=== PATIENT | male | born 1950 | race Caucasian/White ===

== ENCOUNTER 2019-10-23 13:09 | Inpatient (IN) ==
--- OUTSIDE RECORDS SUMMARY | 2019-10-23 13:11 | External Medical Summary | Continuity of Care Document ---
:1950 Author Name Jessica Frausto, Provider Address Unavailable Unavailable , Care Team Providers Name Role Phone Unavailable Unavailable Unavailable PCP, UNKNOWN Unavailable Unavailable Problems Active medical history not documented Allergies and Adverse Reactions No Known Drug Allergies (Allergy) Medications Medications not documented Procedures Procedures not documented Immunizations Immunizations not documented Plan of Treatment Planned Observations Planned Goals not documented Results No Known Results Results not documented
[2019-10-23 14:25] LABS: Albumin Level 3.2 gm/dl (3.4-5.0); Calcium 8.6 mg/dl (8.5-10.1); Creatinine Clr Calc Pharmacy 93.5 ml/min; Est GFR (African American) 97.9; Est GFR (Non-African American) 84.5; Potassium 3.9 mmol/L (3.5-5.1)
[2019-10-23 14:28] LABS: Albumin Globulin Ratio 1.5 (0.9-2); Bilirubin,Total 1.3 mg/dl (0.2-1); Globulin 2.2 gm/dl (2.5-4.0); Total Protein 5.4 gm/dl (6.4-8.2)
[2019-10-23 14:29] LABS: INR 1.2 (0.9-1.1); Partial Thromboplastin Time 26.4 Seconds (21.0-31.0); Prothrombin Time 11.8 Seconds (9.0-12.0)
[2019-10-23 14:35] LABS: Mean Corpuscular Hgb Conc 34.7 g/dL (32-36); Platelet Count 5 K/uL (130-400)
[2019-10-23 14:36] LABS: Basophils # (auto) 0.01 K/uL (0-0.2); Basophils % (auto) 0.3 %; Eosinophils # (auto) 0.08 K/uL (0-0.5); Eosinophils % (auto) 2.3 %; Hematocrit (blood only) 29.1 % (42-52); Hemoglobin 10.1 g/dL (14.0-18.0); Immature Granulocytes # (auto) 0.01 K/uL (0.00-0.02); Immature Granulocytes % (auto) 0.3 %; Lymphocytes # (auto) 0.41 K/uL (1.2-3.4); Lymphocytes % (auto) 11.5 %; Mean Corpuscular Hemoglobin 32.7 pg (25-34); Mean Corpuscular Volume 94.2 fL (80-100); Monocytes # (auto) 0.25 K/uL (0.11-0.59); Neutrophils # (auto) 2.79 K/uL (1.4-6.5); Neutrophils % (auto) 78.6 %; Ovalocytes 1+; Platelet Estimate SIGNIFIC DECREASED (Normal); RDW Coefficient of Variation 16.3 % (11.5-14.5); RDW Standard Deviation 55.8 fL (36.4-46.3); Red Blood Count 3.09 M/uL (4.7-6.1); Tear Drop Cells 2+; White Blood Count 3.55 K/uL (4.8-10.8)
--- NOTE | 2019-10-23 14:52 | XRay Report ---
XR chest 1V portable CLINICAL HISTORY: 69 years-old Male presenting with abd pain. TECHNIQUE: Portable upright AP view of the chest was obtained. COMPARISON: 07/24/2018. FINDINGS: Atherosclerosis of the aortic arch. Cardiac silhouette enlarged. Pulmonary vascular and interstitial prominence. Reticulonodular opacities with the mid to basilar predominance. These are unchanged from prior. No new focal opacity. No large effusion or pneumothorax. Degenerative changes of the thoracic spine. IMPRESSION: 1. Chronic reticulonodular infiltrates. This suggests an underlying chronic lung disease. 2. Cardiomegaly with mild volume overload and congestive change. No nimo pulmonary edema. ACT 112: Negative or not required by law. Electronically signed by: Steve Robison M.D. 10/23/2019 2:51 PM
[2019-10-23 14:57] LABS: Bilirubin Direct 0.3 mg/dl (0-0.2); Troponin I < 0.015 ng/ml (0-0.045)
[2019-10-23] MEDS ORDERED: FAMOTIDINE 20MG IV PUSH 20 MG/5 ML SYR IV STA (15:04)
[2019-10-23] MEDS ORDERED: IOVERSOL 100ml IV PRN (15:09)
[2019-10-23] MEDS ORDERED: PANTOprazole 80 MG in DEXTROSE 5% 100 ML IV ONE (15:15)
[2019-10-23] MEDS: SODIUM CHLORIDE 0.9% 500 ML IV SCH (15:22)
--- NOTE | 2019-10-23 15:52 | CT Scan Report ---
ABDOMEN AND PELVIS CT WITH IV CONTRAST CT DOSE: 1422.48 mGy.cm HISTORY: Generalized abdominal pain. TECHNIQUE: Multiaxial CT images of the abdomen and pelvis were performed following the use of intrave nous contrast. A dose lowering technique was utilized adhering to the principles of ALARA. COMPARISON STUDY: Abdomen and pelvis CT 01/29/2016. FINDINGS: Interval development of multiple subcentimeter pulmonary nodules seen within the lung bases . The largest within the base of the right lower lobe measures 8 mm on image 68. There is diffuse int erstitial thickening at the lung bases. This has progressed and could represent chronic interstitial change versus acute interstitial abnormality such as pulmonary edema. No pneumoperitoneum. No pneumat osis. No suspicious lytic or blastic osseous lesions. Nodular contour to the liver consistent with ci rrhosis. No hepatic or splenic masses identified. The gallbladder surgically absent. The main portal vein is patent. The spleen is severely enlarged measuring up to 22 cm in length. This is slightly dec reased in size. Moderate ascites with multiple upper abdominal varicosities as well as distal paraeso phageal and rectal varicosities. This is consistent with portal hypertension secondary to the cirrhos is. Mildly enlarged right retrocrural lymph nodes remain stable. The adrenal glands, kidneys, and willis creas are within normal limits. Prominent retroperitoneal lymph nodes are also stable. Stable single enlarged portacaval lymph node. Normal caliber abdominal aorta. The bladder is unremarkable. Small to moderate fluid-filled right inguinal hernia. Low-density bilateral inguinal lymph nodes are noted. D ominant lymph node on the left measures 1.8 x 1.1 cm. This has increased in size in the interval. Nod ularity posterior to the spleen may represent the multiple varicosities. No evidence for bowel obstru ction. Colonic diverticulosis. Difficult evaluation for bowel wall thickening due to the abdominal va ricosities and ascites. Normal appendix. Questionable thickening and inflammatory change at the proxi mal sigmoid colon best seen on images 332 through 353. This could be due to to a developing diverticu litis or possibly secondary to the adjacent pericolonic varicosities and ascites. Multiple borderline enlarged mesenteric lymph nodes remain unchanged. Increase in size in a 3 cm periportal lymph node s een on image 134. IMPRESSION: 1. Interval development of multiple subcentimeter indeterminate pulmonary nodules within the lung bas es. Metastatic disease would be the diagnosis of exclusion. 2. Mild interstitial thickening at the lung base which has progressed. This favors pulmonary vascular congestion. 3. Cirrhotic liver with splenomegaly. The paraesophageal, upper abdominal, and perirectal varicositie s have progressed. Moderate ascites which is also progressed. 4. Questionable thickening of inflammatory change at the proximal sigmoid colon. This could be due to a developing diverticulitis or possibly secondary to the adjacent pericolonic varicosities of ascite s. 5. Mildly enlarged periportal and left inguinal lymph nodes. These are nonspecific.. 6. Additional findings as described above. ACT 112: Negative or not required by law. Electronically signed by: Ted Kincaid M.D. 10/23/2019 3:51 PM
[2019-10-23] MEDS: PANTOprazole 40 MG in DEXTROSE 5% 100 ML IV SCH ×2 (16:22→22:08)
[2019-10-23] MEDS ORDERED: cefTRIAXone SODIUM 2,000 MG/70 ML BAG IV STA (19:02)
[2019-10-23 19:49] LABS: Hematocrit (blood only) 26.5 % (42-52); Hemoglobin 9.2 g/dL (14.0-18.0); Mean Corpuscular Hemoglobin 32.6 pg (25-34); Mean Corpuscular Hgb Conc 34.7 g/dL (32-36); Platelet Count 9 K/uL (130-400); RDW Coefficient of Variation 16.2 % (11.5-14.5); RDW Standard Deviation 55.9 fL (36.4-46.3); Red Blood Count 2.82 M/uL (4.7-6.1)
[2019-10-23 19:50] LABS: Basophils # (auto) 0.01 K/uL (0-0.2); Basophils % (auto) 0.3 %; Eosinophils # (auto) 0.07 K/uL (0-0.5); Eosinophils % (auto) 2.1 %; Immature Granulocytes # (auto) 0.01 K/uL (0.00-0.02); Immature Granulocytes % (auto) 0.3 %; Lymphocytes # (auto) 0.34 K/uL (1.2-3.4); Monocytes # (auto) 0.32 K/uL (0.11-0.59); Monocytes % (auto) 9.4 %; Neutrophils # (auto) 2.65 K/uL (1.4-6.5); Neutrophils % (auto) 77.9 %; Platelet Estimate SIGNIFIC DECREASED (Normal); Poikilocytosis Present
[2019-10-23] MEDS ORDERED: ONDANSETRON INJ 2 MG/ML 2 ML VIAL IV PRN (21:44)
[2019-10-23] MEDS ORDERED: NITROGLYCERIN SL 0.4 MG/TAB TAB SL PRN (21:44)
[2019-10-23] MEDS ORDERED: SODIUM CHLORIDE 0.9% 1000ML 1,000 ML IV SCH (22:00)
[2019-10-23] MEDS: carvediloL 6.25 MG TAB PO SCH (22:09)
--- NOTE | 2019-10-23 22:24 | Electrocardiogram Report ---
Test Reason : Blood Pressure : / mmHG Vent. Rate : 075 BPM Atrial Rate : 075 BPM P-R Int : 156 ms QRS Dur : 102 ms QT Int : 420 ms P-R-T Axes : 037 -01 008 degrees QTc Int : 469 ms Normal sinus rhythm Low voltage QRS Incomplete right bundle branch block Cannot rule out Anterior infarct , age undetermined Abnormal ECG When compared with ECG of 24-JUL-2018 17:19, No significant change was found Confirmed by Nitesh South ([id number]) on 10/23/2019 10:23:56 PM Referred By: Confirmed By:Nitesh South
--- NOTE | 2019-10-23 23:56 | History and Physical Report ---
DATE OF ADMISSION: 10/23/2019 CHIEF COMPLAINT: Pancytopenia, GI bleed. HISTORY OF PRESENT ILLNESS: This is a 69-year-old male with past medical history significant for pulmonary embolism, no longer on anticoagulation, history of allergic rhinitis, history of liver cirrhosis diagnosed about 4 years ago, history of esophageal varices, as per patient recent EGD was okay and follows with GI, history of pancreatitis, cholecystitis status post laparoscopic cholecystectomy, history of hypertension, history of autoimmune hemolytic anemia, Kenna positive initial diagnosis in 2010, cirrhosis of liver and splenomegaly causing thrombocytopenia, the platelet count is usually around 70,000-100,000 as per hematology/oncology notes, received prednisone therapy on several occasions, Rituxan x4 in 2010, and Rituxan x8 completed in 2015 as per hematology/oncology notes and observation since April 2016. The patient states since last 2 weeks ago, he developed distention of abdomen and lower extremity edema. Otherwise he is doing fine and went to work yesterday. He had epistaxis couple of days ago and has also noticed some black stools, so he went to his hematology/oncology office today and outpatient labs were done which showed platelets less than 10,000 and advised to come to the ER. Here in the ER, platelets were only 5,000 and WBC 3.4, initial hemoglobin was 10.[address] of abdomen and pelvis was done which is showing multiple subcentimeter indeterminate pulmonary nodules in the lung bases, metastatic disease could be diagnosis of exclusion and pulmonary vascular congestion, cirrhotic liver with splenomegaly, paraesophageal upper abdominal and perirectal varicosities have been progressed, moderate ascites which has also progressed, inflammatory change in the proximal sigmoid colon could be developing diverticulitis or possibly secondary to adjacent pericolonic varicosities of ascites, mildly enlarged periportal and left inguinal lymph nodes. As because of his varices and GI bleed and low platelets, initial plan was to transfer to tertiary care. ER called [facility], they accepted transfer, but they do not have any beds available tonight so he will be admitted tonight and transfer to [facility] tomorrow and also a unit of platelets was given in the ER and [place] also advised to give Rocephin for SBP , which the patient received and the patient was started on Protonix drip. He is hemodynamically stable. The patient has complaints of mild discomfort in left upper quadrant abdomen on and off. Currently the pain is okay. Currently no epistaxis. Denies any headache, no blurred visions, no sore throat. Appetite is good. No dysphagia, no headache, no dizziness, no chest pain or shortness of breath. No nausea, no vomiting. No hematuria. He is ambulating okay. He ambulated to the bathroom in the ER without any support. Lives with . Currently resting comfortably and hemodynamically stable. ALLERGIES: No known drug allergies. PAST MEDICAL HISTORY: As mentioned above. PAST SURGICAL HISTORY: Bronchoscopy, left groin lymph node biopsy at age of 14, colonoscopies, EGDs, insertion of lens, left sided cataract, laparoscopic cholecystectomy, revision of Mohs repair right eye, bilateral cataract surgery, tonsillectomy, adenoidectomy, repair of umbilical hernia with mesh in 2012. MEDICATIONS: The patient is on Coreg 6.25 mg p.o. b.i.d., omeprazole 20 mg p.o. a.m., spironolactone 25 mg p.o. a.m. FAMILY HISTORY: Significant for father had brain aneurysm, colon cancer, heart disorder. SOCIAL HISTORY: . No smoking, no alcohol, no drug use. REVIEW OF SYMPTOMS: As per HPI. Rest of review of symptoms negative. PHYSICAL EXAMINATION: GENERAL: The patient is of moderate build, not in acute distress. VITAL SIGNS: Temperature 37, pulse 91, respiratory rate 20s, blood pressure 111/65, oxygen 94% room air. HEENT: No pallor, no icterus. Pupils equal, round, reactive to light. NECK: No JVD, no neck masses, no carotid bruit. CARDIOVASCULAR: S1, S2 heard, regular rate and rhythm, no murmur, no gallop. RESPIRATORY SYSTEM: Normal AP diameter. No accessory muscle use. No wheezing, no crackles. ABDOMEN: Distended. Bowel sounds sluggish. Nontender. No guarding, no rigidity. CENTRAL NERVOUS SYSTEM: Alert and oriented x3. Insight good. Obeys commands. Moves extremities. EXTREMITIES: Bilateral lower extremity +2 edema present with petechial rash seen. LABORATORY DATA: WBC 3.4, hemoglobin 9.2, hematocrit 26.5, platelets initially was 5, now 9. PT 11.8, INR 1.2, APTT 26.4. Sodium 141, potassium 3.9, chloride 110, bicarbonate 25, BUN 16, creatinine 0.9, serum glucose 168, calcium 8.6, total bilirubin 1.3, direct bilirubin 0.3, AST 21, ALT 20, alkaline phosphatase 68, troponin I less than 0.015. Chest x-ray, chronic reticulonodular infiltrates to suggest underlying chronic lung disease, cardiomegaly with mild volume overload and congestive change, no nimo pulmonary edema. CT of abdomen and pelvis shows interval development of multiple subcentimeter indeterminate pulmonary nodules within the lung bases, metastatic disease with a diagnosis of exclusion, mild interstitial thickening at the lung base, which has progressed, this favors pulmonary vascular congestion, cirrhotic liver with splenomegaly. The paraesophageal upper abdominal and perirectal varicosities are progressed, moderate ascites, which has also progressed, questionable thickening of inflammatory change in the proximal sigmoid colon. This could be due to developing diverticulitis or possibly secondary to the adjacent pericolonic varicosities of ascites, mildly enlarged periportal and left inguinal lymph nodes, these are nonspecific. EKG: Normal sinus rhythm at a rate of 75, incomplete right bundle branch block, no significant changes found. ASSESSMENT AND PLAN: This is a 69-year-old male with history of autoimmune hemolytic anemia, liver cirrhosis, hypertension, presents with pancytopenia with platelets of 5 and gastrointestinal bleed and there is plan to transfer to [place], but no bed available until tomorrow so getting admitted to observe until patient gets transferred to [place]. 1. Pancytopenia with significant thrombocytopenia, platelets of 5, hemoglobin when he came 10.2. Received 1 unit of platelet apheresis, fluids. Currently platelet came up to 9, he is going to get another unit of platelet apheresis. Monitor in tele floor.There was plan for high dose Decadron but currently held for GI bleed. Can d/w heme/onco again if Patient stays here for long time. 2. Gastrointestinal bleed, having black stools for few days. Started on Protonix drip, which we will continue. The patient has history of liver cirrhosis and varices which have increased on CAT scan . Plan to transfer to [place] for further management. Continue Protonix drip for now. Follow h and h. 3. Autoimmune hemolytic anemia, Kenna positive, diagnosed in 2010 . Received several course of prednisone and also Rituxan, follows with hematology/oncology, further management with hematology/oncology at [place]. 4. Liver cirrhosis with ascites, diagnosed about 4 years ago, on Aldactone, has the moderate ascites on CAT scan, may need tap, started on Rocephin for possible SBP.. 4. Hypertension, currently on Coreg with holding parameters. 5. Deep venous thrombosis prophylaxis, sequential compression devices for now. 6. Disposition: Closely monitor in tele floor. Await transfer to [place], when bed is available possibly in a.m. Level 1 full code. MTDD
--- NOTE | 2019-10-24 01:52 | Emergency Department Note ---
Entered by Sandi Meza acting as a scribe for Dennis Lozano MD History of Present Illness General Chief complaint: Referred by Doctor Stated complaint: Referred by Doctor Time Seen by Provider: 10/23/19 14:10 Source: patient Mode of arrival: ambulatory Limitations: no limitations History of Present Illness Onset (ago): day(s) 1 Radiation: non-radiation Pain Consistency: + constant Relieved By: + none Exacerbated By: + none Associated symptoms: + chest pain and + other (+hematochezia, +swelling in bilateral legs); no cough, no fever/chills and no shortness of breath Treatments prior to arrival: none The patient is a 69 year old male who presents to the ED with complaints of abnormal lab work. He was referred here by Dr. Ibrahim from [facility] for low p latelets after labs that were drawn this morning came back abnormal. The patient has a history of hemolytic anemia and his platelets were under 10,000 this morning. He admits to some recent black stools and occasional chest pain for the past 1 week. He denies any shortness of breath. He denies any history of gastric ulcers. He has a history of fatty liver but denies any history of alcohol abuse. The patient has been transfused previously. He denies any recent fevers, chills, cough or congestion. He does admit to some swelling in his legs. He does have 2 hernias in his abdomen that are occasionally painful. Home Medications Home Medications Medication Instructions Recorded Confirmed Type carvedilol 6.25 mg PO BID 07/24/18 10/23/19 History omeprazole 20 mg PO QAM 07/24/18 10/23/19 History spironolactone 25 mg PO QAM 10/23/19 10/23/19 History Allergies Allergy/AdvReac Type Severity Reaction Status Date / Time No Known Allergies Allergy Verified 10/23/19 15:13 Past Med/Surg History Medical History Basal cell carcinoma Hemolytic anemia Pancreatitis Portal hypertension Social History Preferred Language: Gabonese Communication Ability: Effective Channel Account Manager Required: No Beliefs That Will Affect Care: None Current Living Situation: Spouse Other Information That Helps Us Care for You: No Feels Safe at Home: Yes Safety Concerns: Feels Safe At This Time Smoking Status: Never smoker Hx Alcohol Use: No Hx Substance Use: No Review of Systems See HPI for pertinent positives & negatives. and A total of 10 systems reviewed and were otherwise negative Physical Exam Vital Signs Vital Signs - 24 hr 10/23/19 13:13 10/23/19 13:55 10/23/19 14:00 Temperature 36.6 C Temperature Source Oral Pulse Rate 81 75 73 Pulse Rate from SpO2 Sensor 76 73 Respiratory Rate 18 17 18 Respiratory Effort / Characteristics Non-Labored Spontaneous Respiratory Depth Normal Blood Pressure 127/67 120/69 126/65 Blood Pressure Mean 87 84 89 Blood Pressure Position Sitting Pulse Oximetry 97 97 96 Oxygen Delivery Method Room Air Sepsis Recent Fever Within 48 Hours No Sepsis Action Taken by Nursing No Action Required 10/23/19 14:01 10/23/19 14:30 10/23/19 14:31 Temperature Temperature Source Pulse Rate 76 79 78 Pulse Rate from SpO2 Sensor 75 79 79 Respiratory Rate 19 20 22 Respiratory Effort / Characteristics Respiratory Depth Blood Pressure 152/68 H Blood Pressure Mean 98 Blood Pressure Position Pulse Oximetry 95 98 98 Oxygen Delivery Method Sepsis Recent Fever Within 48 Hours Sepsis Action Taken by Nursing 10/23/19 15:00 10/23/19 15:01 10/23/19 15:20 Temperature Temperature Source Pulse Rate 75 76 82 Pulse Rate from SpO2 Sensor 75 76 82 Respiratory Rate 19 20 19 Respiratory Effort / Characteristics Respiratory Depth Blood Pressure 115/61 127/63 Blood Pressure Mean 70 78 Blood Pressure Position Pulse Oximetry 96 96 99 Oxygen Delivery Method Sepsis Recent Fever Within 48 Hours Sepsis Action Taken by Nursing 10/23/19 15:30 10/23/19 16:22 10/23/19 16:30 Temperature Temperature Source Pulse Rate 75 74 75 Pulse Rate from SpO2 Sensor 76 74 75 Respiratory Rate 20 18 17 Respiratory Effort / Characteristics Respiratory Depth Blood Pressure 120/62 113/65 116/67 Blood Pressure Mean 65 69 79 Blood Pressure Position Pulse Oximetry 98 98 97 Oxygen Delivery Method Sepsis Recent Fever Within 48 Hours Sepsis Action Taken by Nursing 10/23/19 16:38 10/23/19 16:39 10/23/19 16:54 Temperature 36.9 C 37 C Temperature Source Oral Oral Pulse Rate 76 74 78 Pulse Rate from SpO2 Sensor 75 Respiratory Rate 20 17 20 Respiratory Effort / Characteristics Respiratory Depth Blood Pressure 121/64 121/64 120/68 Blood Pressure Mean 83 73 85 Blood Pressure Position Lying Pulse Oximetry 97 97 97 Oxygen Delivery Method Sepsis Recent Fever Within 48 Hours Sepsis Action Taken by Nursing 10/23/19 16:55 10/23/19 17:00 10/23/19 17:01 Temperature Temperature Source Pulse Rate 78 75 76 Pulse Rate from SpO2 Sensor 79 75 76 Respiratory Rate 21 18 13 Respiratory Effort / Characteristics Respiratory Depth Blood Pressure 120/68 116/62 Blood Pressure Mean 81 80 Blood Pressure Position Pulse Oximetry 97 96 99 Oxygen Delivery Method Sepsis Recent Fever Within 48 Hours Sepsis Action Taken by Nursing 10/23/19 17:05 10/23/19 17:06 10/23/19 17:15 Temperature 37 C 37.1 C Temperature Source Oral Oral Pulse Rate 73 73 89 Pulse Rate from SpO2 Sensor 74 86 Respiratory Rate 15 16 21 Respiratory Effort / Characteristics Respiratory Depth Blood Pressure 123/68 123/68 139/78 Blood Pressure Mean 86 93 97 Blood Pressure Position Pulse Oximetry 97 97 96 Oxygen Delivery Method Sepsis Recent Fever Within 48 Hours Sepsis Action Taken by Nursing 10/23/19 17:30 10/23/19 17:39 10/23/19 17:45 Temperature 37 C Temperature Source Oral Pulse Rate 77 86 76 Pulse Rate from SpO2 Sensor 76 76 Respiratory Rate 20 23 26 H Respiratory Effort / Characteristics Respiratory Depth Blood Pressure 112/60 114/64 114/64 Blood Pressure Mean 74 80 71 Blood Pressure Position Pulse Oximetry 97 97 97 Oxygen Delivery Method Sepsis Recent Fever Within 48 Hours Sepsis Action Taken by Nursing 10/23/19 18:00 10/23/19 18:15 10/23/19 18:30 Temperature Temperature Source Pulse Rate 78 89 81 Pulse Rate from SpO2 Sensor Respiratory Rate 20 21 20 Respiratory Effort / Characteristics Respiratory Depth Blood Pressure 130/73 131/85 120/63 Blood Pressure Mean 94 99 67 Blood Pressure Position Pulse Oximetry Oxygen Delivery Method Sepsis Recent Fever Within 48 Hours Sepsis Action Taken by Nursing 10/23/19 18:45 10/23/19 19:00 Temperature Temperature Source Pulse Rate 83 91 H Pulse Rate from SpO2 Sensor 86 Respiratory Rate 20 26 H Respiratory Effort / Characteristics Respiratory Depth Blood Pressure 83/52 L 111/65 Blood Pressure Mean 56 83 Blood Pressure Position Pulse Oximetry 94 Oxygen Delivery Method Sepsis Recent Fever Within 48 Hours Sepsis Action Taken by Nursing GENERAL: Awake, alert, fatigued-appearing, in no distress HENT: Normocephalic, atraumatic. Oropharynx with dry mucous membranes and otherwise unremarkable. EYES: Normal conjunctiva. Sclera non-icteric. NECK: Supple. No nuchal rigidity. FROM. No JVD. RESPIRATORY: CTAB. CARDIAC: Regular rate, normal rhythm. Extremities warm and well perfused. Pulses equal. ABDOMEN: Massive ascites with distended abdomen but soft and nontender, Large ventral hernia and moderate sized inguinal hernia, nontender. No rebound or guarding. RECTAL: Scant black stool without gross hemorrhage or blood. Hemoccult is positive. MUSCULOSKELETAL: Chest examination reveals no tenderness. The back is symmetrical on inspection without obvious abnormality. There is no CVA tenderness to palpation. No joint edema. LOWER EXTREMITIES: Calves are equal size bilaterally and non-tender. No edema. No discoloration. NEURO: Normal sensorium. No sensory or motor deficits noted. SKIN: No rash or jaundice noted. Course Course 1415: The patient was evaluated in room C6 and a complete history and physical were performed. 1615: I discussed the patients case with TREVIN Waters, [facility]. She has spoken to Dr. Ibrahim and recommends he be transferred to a tertiary center for further evaluation and management. 1640: I discussed the patients case with TREVIN Vides [facility]. She agrees the patient should be transferred to a tertiary care center for further evaluation. 1650: I reevaluated the patient. He is resting comfortably. I discussed my r ecommendation he remain in the hospital for further evaluation and management and he is agreeable with the plan. 1711: I discussed the patients case with [facility]. They agree with the transfer. 1713: I spoke with a [facility] Hospitalist and they are agreeable with the plan. 1850: I spoke with Dr. Hdez [facility], did not feel it was necessary to send him to a whole new facility. 1853: I spoke with TREVIN Waters [facility] Hospitalist. The patient will be further evaluated. 1910: I reevaluated the patient. He is resting comfortably. I discussed that he will remain here at [facility] for further evaluation and management and he is agreeable with the plan. Administered Medications Carvedilol (Coreg) 6.25 mg PO BID YEHUDA Stop: 11/22/19 21:59 Last Admin: 10/23/19 22:09 Dose: 6.25 mg Documented by: [id number] Pantoprazole Sodium 40 mg/ (Dextrose) 100 mls @ 20 mls/hr IV Q5H YEHUDA Stop: 11/22/19 15:29 Last Admin: 10/24/19 02:26 Dose: 20 mls/hr Documented by: [id number] Infusion: 10/24/19 02:26 Dose: 20 mls/hr Documented by: [id number] Admin: 10/23/19 22:08 Dose: 20 mls/hr Documented by: [id number] Infusion: 10/23/19 21:22 Dose: 20 mls/hr Documented by: [id number] Admin: 10/23/19 16:22 Dose: 20 mls/hr Documented by: [id number] Sodium Chloride (Nss 1000ml) 1,000 mls @ 50 mls/hr IV .Q20H YEHUDA Stop: 11/22/19 21:59 Last Admin: 10/23/19 22:09 Dose: 50 mls/hr Documented by: [id number] Discontinued Medications Sodium Chloride (Nss) 500 mls @ 125 mls/hr IV .Q4H YEHUDA Stop: 11/22/19 14:29 Last Infusion: 10/23/19 20:09 Dose: 0 mls/hr Documented by: [id number] Admin: 10/23/19 15:22 Dose: 125 mls/hr Documented by: [id number] Famotidine (Pepcid 20mg Iv Push) 20 mg in 5 mls @ 2.5 mls/min IV NOW STA Stop: 10/23/19 15:05 Last Admin: 10/23/19 15:22 Dose: 2.5 mls/min Documented by: [id number] Pantoprazole Sodium 80 mg/ (Dextrose) 120 mls @ 480 mls/hr IV NOW ONE Stop: 10/23/19 15:29 Last Infusion: 10/23/19 16:12 Dose: 0 mls/hr Documented by: [id number] Admin: 10/23/19 15:37 Dose: 480 mls/hr Documented by: [id number] Ceftriaxone Sodium (Rocephin) 2,000 mg in 70 mls @ 140 mls/hr IV NOW STA Stop: 10/23/19 19:31 Last Infusion: 10/23/19 20:09 Dose: 0 mls/hr Documented by: [id number] Admin: 10/23/19 19:38 Dose: 140 mls/hr Documented by: [id number] Ioversol (Optiray 320 100ml) 94 ml IV ONCE PRN PRN Reason: Interaction Checking Stop: 10/27/19 15:08 Last Admin: 10/23/19 15:09 Dose: 94 ml Documented by: [id number] Critical Care Time Critical Care Time: Yes Total Critical Care Time: 125 I have personally spent greater than 125 minutes of critical care time in the direct management of this patient. This includes bedside care, interpretation of diagnostic studies, and testing, discussion with consultants, patient, and family members, and other required patient management activities. This 125 minutes is in excess of all separately billable procedures. Medical Decision Making Differential Diagnosis Differential Diagnosis includes but is not limited to dehydration, stroke, anemia, hypoglycemia, hyponatremia, hypernatremia, urinary tract infection, pneumonia, bronchitis, sepsis, gastroenteritis, additional abdominal pathology, metabolic abnormalities and infections. Medical Records Attestation: I reviewed the patient's medical records. Home Medications Current Medication List: was personally reviewed by me Laboratory Data Attestation: I reviewed the patient's lab results. Result diagrams: 10/23/19 19:11 10/23/19 13:50 Lab Results 10/23/19 10/23/19 10/23/19 Range/Units 13:50 13:50 13:50 WBC 3.55 L (4.8-10.8) K/uL RBC 3.09 L (4.7-6.1) M/uL Hgb 10.1 L (14.0-18.0) g/dL Hct 29.1 L (42-52) % MCV 94.2 (80-100) fL MCH 32.7 (25-34) pg MCHC 34.7 (32-36) g/dL RDW Std Deviation 55.8 H (36.4-46.3) fL RDW Coeff of Bella 16.3 H (11.5-14.5) % Plt Count 5 L* (130-400) K/uL Immature Gran % (Auto) 0.3 % Neut % (Auto) 78.6 % Lymph % (Auto) 11.5 % Hardeman % (Auto) 7.0 % Eos % (Auto) 2.3 % Baso % (Auto) 0.3 % Immature Gran # (Auto) 0.01 (0.00-0.02) K/uL Neut # (Auto) 2.79 (1.4-6.5) K/uL Lymph # (Auto) 0.41 L (1.2-3.4) K/uL Hardeman # (Auto) 0.25 (0.11-0.59) K/uL Eos # (Auto) 0.08 (0-0.5) K/uL Baso # (Auto) 0.01 (0-0.2) K/uL Platelet Estimate SIGNIFIC DECREASED (Normal) Poikilocytosis Tear Drop Cells 2+ Ovalocytes 1+ PT 11.8 (9.0-12.0) Seconds INR 1.2 H (0.9-1.1) APTT 26.4 (21.0-31.0) Seconds PTT Ratio 1.0 Sodium 141 (136-145) mmol/L Potassium 3.9 (3.5-5.1) mmol/L Chloride 110 H (98-107) mmol/L Carbon Dioxide 25 (21-32) mmol/L Anion Gap 6.0 (3-11) BUN 16 (7-18) mg/dl Creatinine 0.91 (0.6-1.4) mg/dl Est Cr Clr Drug Dosing 93.5 ml/min Est GFR ( Amer) 97.9 Est GFR (Non-Af Amer) 84.5 BUN/Creatinine Ratio 17.0 (10-20) Glucose 168 H (70-99) mg/dl Calcium 8.6 (8.5-10.1) mg/dl Total Bilirubin 1.3 H (0.2-1) mg/dl Direct Bilirubin (0-0.2) mg/dl AST 21 (15-37) U/L ALT 20 (12-78) U/L Alkaline Phosphatase 68 (45-117) U/L Troponin I (0-0.045) ng/ml Total Protein 5.4 L (6.4-8.2) gm/dl Albumin 3.2 L (3.4-5.0) gm/dl Globulin 2.2 L (2.5-4.0) gm/dl Albumin/Globulin Ratio 1.5 (0.9-2) Blood Type Antibody Screen 10/23/19 10/23/19 10/23/19 Range/Units 14:22 14:22 19:11 WBC 3.40 L (4.8-10.8) K/uL RBC 2.82 L (4.7-6.1) M/uL Hgb 9.2 L (14.0-18.0) g/dL Hct 26.5 L (42-52) % MCV 94.0 (80-100) fL MCH 32.6 (25-34) pg MCHC 34.7 (32-36) g/dL RDW Std Deviation 55.9 H (36.4-46.3) fL RDW Coeff of Bella 16.2 H (11.5-14.5) % Plt Count 9 L* D (130-400) K/uL Immature Gran % (Auto) 0.3 % Neut % (Auto) 77.9 % Lymph % (Auto) 10.0 % Hardeman % (Auto) 9.4 % Eos % (Auto) 2.1 % Baso % (Auto) 0.3 % Immature Gran # (Auto) 0.01 (0.00-0.02) K/uL Neut # (Auto) 2.65 (1.4-6.5) K/uL Lymph # (Auto) 0.34 L (1.2-3.4) K/uL Hardeman # (Auto) 0.32 (0.11-0.59) K/uL Eos # (Auto) 0.07 (0-0.5) K/uL Baso # (Auto) 0.01 (0-0.2) K/uL Platelet Estimate SIGNIFIC DECREASED (Normal) Poikilocytosis Present Tear Drop Cells Ovalocytes PT (9.0-12.0) Seconds INR (0.9-1.1) APTT (21.0-31.0) Seconds PTT Ratio Sodium (136-145) mmol/L Potassium (3.5-5.1) mmol/L Chloride (98-107) mmol/L Carbon Dioxide (21-32) mmol/L Anion Gap (3-11) BUN (7-18) mg/dl Creatinine (0.6-1.4) mg/dl Est Cr Clr Drug Dosing ml/min Est GFR ( Amer) Est GFR (Non-Af Amer) BUN/Creatinine Ratio (10-20) Glucose (70-99) mg/dl Calcium (8.5-10.1) mg/dl Total Bilirubin (0.2-1) mg/dl Direct Bilirubin 0.3 H (0-0.2) mg/dl AST (15-37) U/L ALT (12-78) U/L Alkaline Phosphatase (45-117) U/L Troponin I < 0.015 (0-0.045) ng/ml Total Protein (6.4-8.2) gm/dl Albumin (3.4-5.0) gm/dl Globulin (2.5-4.0) gm/dl Albumin/Globulin Ratio (0.9-2) Blood Type O Negative Antibody Screen NEGATIVE Imaging Data Radiologist's Impression: Radiology results as stated below per my review and the radiologist's interpretation: XR chest 1V portable CLINICAL HISTORY: 69 years-old Male presenting with abd pain. TECHNIQUE: Portable upright AP view of the chest was obtained. COMPARISON: 07/24/2018. FINDINGS: Atherosclerosis of the aortic arch. Cardiac silhouette enlarged. Pulmonary vascular and interstitial prominence. Reticulonodular opacities with the mid to basilar predominance. These are unchanged from prior. No new focal opacity. No large effusion or pneumothorax. Degenerative changes of the thoracic spine. IMPRESSION: 1. Chronic reticulonodular infiltrates. This suggests an underlying chronic lung disease. 2. Cardiomegaly with mild volume overload and congestive change. No nimo pulmonary edema. ACT 112: Negative or not required by law. Electronically signed by: Steve Robison M.D. 10/23/2019 2:51 PM ABDOMEN AND PELVIS CT WITH IV CONTRAST CT DOSE: 1422.48 mGy.cm HISTORY: Generalized abdominal pain. TECHNIQUE: Multiaxial CT images of the abdomen and pelvis were performed following the use of intravenous contrast. A dose lowering technique was utilized adhering to the principles of ALARA. COMPARISON STUDY: Abdomen and pelvis CT 01/29/2016. FINDINGS: Interval development of multiple subcentimeter pulmonary nodules seen within the lung bases. The largest within the base of the right lower lobe measures 8 mm on image 68. There is diffuse interstitial thickening at the lung bases. This has progressed and could represent chronic interstitial change versus acute interstitial abnormality such as pulmonary edema. No pneumoperitoneum. No pneumatosis. No suspicious lytic or blastic osseous lesions. Nodular contour to the liver consistent with cirrhosis. No hepatic or splenic masses identified. The gallbladder surgically absent. The main portal vein is patent. The spleen is severely enlarged measuring up to 22 cm in length. This is slightly decreased in size. Moderate ascites with multiple upper abdominal varicosities as well as distal paraesophageal and rectal varicosities. This is consistent with portal hypertension secondary to the cirrhosis. Mildly enlarged right retrocrural lymph nodes remain stable. The adrenal glands, kidneys, and pancreas are within normal limits. Prominent retroperitoneal lymph nodes are also stable. Stable single enlarged portacaval lymph node. Normal caliber abdominal aorta. The bladder is unremarkable. Small to moderate fluid- filled right inguinal hernia. Low-density bilateral inguinal lymph nodes are noted. Dominant lymph node on the left measures 1.8 x 1.1 cm. This has increased in size in the interval. Nodularity posterior to the spleen may represent the multiple varicosities. No evidence for bowel obstruction. Colonic diverticulo sis. Difficult evaluation for bowel wall thickening due to the abdominal varicosities and ascites. Normal appendix. Questionable thickening and inflammatory change at the proximal sigmoid colon best seen on images 332 through 353. This could be due to to a developing diverticulitis or possibly secondary to the adjacent pericolonic varicosities and ascites. Multiple borderline enlarged mesenteric lymph nodes remain unchanged. Increase in size in a 3 cm periportal lymph node seen on image 134. IMPRESSION: 1. Interval development of multiple subcentimeter indeterminate pulmonary nodules within the lung bases. Metastatic disease would be the diagnosis of exclusion. 2. Mild interstitial thickening at the lung base which has progressed. This favors pulmonary vascular congestion. 3. Cirrhotic liver with splenomegaly. The paraesophageal, upper abdominal, and perirectal varicosities have progressed. Moderate ascites which is also progressed. 4. Questionable thickening of inflammatory change at the proximal sigmoid colon. This could be due to a developing diverticulitis or possibly secondary to the adjacent pericolonic varicosities of ascites. 5. Mildly enlarged periportal and left inguinal lymph nodes. These are nonspecific.. 6. Additional findings as described above. ACT 112: Negative or not required by law. Electronically signed by: Ted Kincaid M.D. 10/23/2019 3:51 PM ECG Data Attestation: I personally reviewed and interpreted this ECG as follows: Indication: + weakness Rate (beats per minute): 75 Rhythm: + sinus rhythm ECG Intervals/blocks: + Incomplete right bundle branch block, + Normal QRS (162) and + Normal QT-c (QTC is 469) ECG ST segments: no ST depression and no ST elevation ECG Findings: no PACs and no PVCs Additional Comments: 2nd EKG on 10/23/2019: Normal sinus rhythm, rate of 72, normal axis, no ST elevation or depression, QTC is 444, QRS is 108. Blood Pressure Blood Pressure Findings: Normal blood pressure Blood Pressure Disposition: did not require urgent referral MDM Narrative The patient is a pleasant 69 y/o gentleman with a pmhx of cirrhosis with portal hypertension and esophageal varices, h/o hemolytic anema, chronic thrombocytopeni who presents to the emergency department with black stools for past week and outpatient blood work showing acute on chronic thrombocytopenia with platelets 5K with prior platelets > 30K per HPI. On arrival the patient is fatigued appearing but in NAD, AFVSS. Patient exhibits massive ascites with distended abdomen but soft, nontender. Large ventral hernia and moderate sized right inguinal hernia that are soft and nontender. Rectal exam with scant black stool without gross blood/hemorrhage. Hemoccult positive. EKG unremarkable without evidence of acute ischemia. CXR negative for pna with interstitial prominence. WBC 3.5, nonspecific. H/H 10.09/30 similar to prior value earlier today however no recent values for comparison otherwise. Platelets 5K with prior value 30K in 2018. Chemistry without acidosis. Total bilirubin 1.3 and direct bilirubin 0.3. Otherwise, LFTs and electrolytes unremarkable. Troponin negative/undetectable. CT abd/pelvis demonstrates development of multiple indeterminate pulmonary nodules within the lung bases and well as cirrhotic liver with splenomegaly. There has been progression of paraesophageal, upper abdominal, and perirectal varicosities ans well as moderate ascites. Question of developing diverticulitis less likely. Patient was consented for transfusion of blood products. Ordered for platelets and protonix bolus/drip. Patient continued to remain hemodynamically stable during ED observation. Case was discussed with [facility], who request discussion with GI to see if they feel comfortable keeping patient here or if they recommend transfer. Admitting team subsequently discussed with patient's citrix administrator, Dr. Ibrahim who recommended transfer given patient's complexity and risk if patient were to develop variceal bleeding. Case d/w [facility], who also agree with this recommendation as our supply of platelets is suboptimal for this patient. This recommendation was review with patient and who were not preferring transfer but would agree. Case d/[place] [facility] [place] [facility], Dr. Bravo and Medicine Hospitalist who accept the patient for transfer however beds are not currently available until AM. Admitting team updated and request to see if patient can be transferred to [facility]. Case d/w [facility], Dr. Hdez, who did not rec ommend/feel transfer to entirely new facility was warranted for prophylactic needs (i.e. if he were to worsen) given he is hemodynamically stable at this time and will have bed available at [facility] tomorrow where he has been managed before. Mil Waters was updated and they will admit the patient for further management pending bed availability tomorrow for transfer. Agrees with empiric CTX given ascites and GIB. Impression & Plan Melena, Thrombocytopenia, Anemia, Cirrhosis, Esophageal varices Discharge Plan Visit Data *Final* Discharge Date/Time: 10/23/19 21:07 Chief Complaint: Referred by Doctor Stated Complaint: Referred by Doctor ED Provider: Dennis Lozano Discharge Problem: Melena, Thrombocytopenia, Anemia, Cirrhosis, Esophageal varices Patient Disposition: Admitted As Inpatient Discharge Instructions Interventions: ED Discharge Assessment Last Done: 10/23/19 21:07 The scribe's documentation has been prepared under my direction and personally reviewed by me in its entirety. I confirm that the note above accurately reflects all work, treatment, procedures, and medical decision making performed by me.
[2019-10-24] MEDS: PANTOprazole 40 MG in DEXTROSE 5% 100 ML IV SCH ×3 (02:26→12:33)
[2019-10-24] MEDS ORDERED: FUROSEMIDE 20 MG in SYRINGE 0 ML IV ONE ×2 (03:16→06:33)
[2019-10-24 05:48] LABS: BUN Creatinine Ratio 12.9 (10-20); Calcium 8.2 mg/dl (8.5-10.1); Creatinine Clr Calc Pharmacy 84.4 ml/min; Est GFR (African American) 85.3; Est GFR (Non-African American) 73.6; Magnesium 1.9 mg/dl (1.8-2.4); Potassium 3.8 mmol/L (3.5-5.1)
[2019-10-24 06:17] LABS: Mean Corpuscular Hgb Conc 34.7 g/dL (32-36)
[2019-10-24 06:20] LABS: Basophils # (auto) 0.01 K/uL (0-0.2); Basophils % (auto) 0.3 %; Eosinophils # (auto) 0.08 K/uL (0-0.5); Eosinophils % (auto) 2.7 %; Hematocrit (blood only) 28.5 % (42-52); Hemoglobin 9.9 g/dL (14.0-18.0); Lymphocytes # (auto) 0.31 K/uL (1.2-3.4); Lymphocytes % (auto) 10.5 %; Mean Corpuscular Hemoglobin 32.7 pg (25-34); Mean Corpuscular Volume 94.1 fL (80-100); Monocytes % (auto) 6.8 %; Neutrophils # (auto) 2.34 K/uL (1.4-6.5); Neutrophils % (auto) 79.7 %; Platelet Count 6 K/uL (130-400); Platelet Estimate SIGNIFIC DECREASED (Normal); RDW Coefficient of Variation 16.3 % (11.5-14.5); RDW Standard Deviation 56.3 fL (36.4-46.3); Red Blood Count 3.03 M/uL (4.7-6.1); White Blood Count 2.94 K/uL (4.8-10.8)
[2019-10-24] MEDS: carvediloL 6.25 MG TAB PO SCH (07:44)
[2019-10-24] MEDS ORDERED: cefTRIAXone SODIUM 2,000 MG in DEXTROSE 5% 50 ML IV SCH (09:00)
[2019-10-24] MEDS ORDERED: SPIRONOLACTONE 25 MG TAB PO SCH (09:00)
[2019-10-24] MEDS: SODIUM CHLORIDE 0.9% 500 ML IV SCH (09:56)
[2019-10-24 13:46] LABS: Hematocrit (blood only) 28.3 % (42-52); Hemoglobin 9.7 g/dL (14.0-18.0); Mean Corpuscular Hemoglobin 32.4 pg (25-34); Mean Corpuscular Hgb Conc 34.3 g/dL (32-36); Mean Corpuscular Volume 94.6 fL (80-100); Platelet Count 6 K/uL (130-400); Platelet Estimate SIGNIFIC DECREASED (Normal); RDW Coefficient of Variation 16.1 % (11.5-14.5); RDW Standard Deviation 55.3 fL (36.4-46.3); Red Blood Count 2.99 M/uL (4.7-6.1); White Blood Count 3.26 K/uL (4.8-10.8)
--- NOTE | 2019-10-24 14:50 | Discharge Summary ---
Date of Service October 24, 2019 Admission HPI Per Admitting Provider DICTATED BY: Lewis Urias MD DATE OF ADMISSION: 10/23/2019 CHIEF COMPLAINT: Pancytopenia, GI bleed. HISTORY OF PRESENT ILLNESS: This is a 69-year-old male with past medical history significant for pulmonary embolism, no longer on anticoagulation, history of allergic rhinitis, history of liver cirrhosis diagnosed about 4 years ago, history of esophageal varices, as per patient recent EGD was okay and follows with GI, history of pancreatitis, cholecystitis status post laparoscopic cholecystectomy, history of hypertension, history of autoimmune hemolytic anemia, [place] positive initial diagnosis in 2010, cirrhosis of liver and splenomegaly causing thrombocytopenia, the platelet count is usually around 70,000-100,000 as per hematology/oncology notes, received prednisone therapy on several occasions, Rituxan x4 in 2010, and Rituxan x8 completed in 2015 as per hematology/oncology notes and observation since April 2016. The patient states since last 2 weeks ago, he developed distention of abdomen and lower extremity edema. Otherwise he is doing fine and went to work yesterday. He had epistaxis couple of days ago and has also noticed some black stools, so he went to his hematology/oncology office today and outpatient labs were done which showed platelets less than 10,000 and advised to come to the ER. Here in the ER, platelets were only 5,000 and WBC 3.4, initial hemoglobin was 10.[address] of abdomen and pelvis was done which is showing multiple subcentimeter indeterminate pulmonary nodules in the lung bases, metastatic disease could be diagnosis of exclusion and pulmonary vascular congestion, cirrhotic liver with splenomegaly, paraesophageal upper abdominal and perirectal varicosities have been progressed, moderate ascites which has also progressed, inflammatory change in the proximal sigmoid colon could be developing diverticulitis or possibly secondary to adjacent pericolonic varicosities of ascites, mildly enlarged periportal and left inguinal lymph nodes. As because of his varices and GI bleed and low platelets, initial plan was to transfer to tertiary care. ER called [facility], they accepted transfer, but they do not have any beds available tonight so he will be admitted tonight and transfer to [facility] tomorrow and also a unit of platelets was given in the ER and [place] also advised to give Rocephin for SBP , which the patient received and the patient was started on Protonix drip. He is hemodynamically stable. The patient has complaints of mild discomfort in left upper quadrant abdomen on and off. Currently the pain is okay. Currently no epistaxis. Denies any headache, no blurred visions, no sore throat. Appetite is good. No dysphagia, no headache, no dizziness, no chest pain or shortness of breath. No nausea, no vomiting. No hematuria. He is ambulating okay. He ambulated to the bathroom in the ER without any support. Lives with . Currently resting comfortably and hemodynamically stable Principal Diagnosis Thrombocytopenia, melena, esophageal varices, ascites Discharge Exam Constitutional WD/WN, vitals as above + ill appearing; no acute distress Eyes PERRL, conjunctivae normal, anicteric sclerae ENMT external ear and nose normal, oropharynx normal Respiratory normal respiratory effort; no respiratory distress and no cough Auscultation: + diminished lung sounds Cardiovascular Rate/Rhythm: regular rate and regular rhythm Extremities: + edema Gastrointestinal (Abdomen) Inspection/Auscultation: + abdomen distended Percussion/Palpation: abdomen soft and + ascites (Large ascites); abdomen nontender Neurologic PERRL, EOMI, accommodation nl, no face palsy, no dysarthria Psychiatric A+Ox3, euthymic affect Discharge Data Allergies Allergy/AdvReac Type Severity Reaction Status Date / Time No Known Allergies Allergy Verified 10/23/19 15:13 Consultations 10/23/19 16:12 ED Decision to Admit Stat 10/23/19 21:44 Consult Case Management - Discharge Planning Routine Ordered Studies 10/23/19 14:18 CT abd pelvis IV con only Stat Hospital Course (1) Thrombocytopenia: Thrombocytopenia: Patient has history of [place] cirrhosis diagnosed 4 years ago, history of esophageal varices, history of autoimmune hemolytic Patient sent to ER as outpatient lab showed significant thrombocytopenia with platelet count 5 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 of 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 Ordered to transfusion 2 unit of platelet-platelet count improved to 9 Morning platelet count dropped to 6 again, she had one episode of melanotic stool Unit of platelet transfusion, repeat CBC shows platelet count remains 6 pt will need a tertiary care level treatment/management given complicated medical history-requirement for transfusion of large amount of platelets, unavailable at [facility] blood bank currently Needs multi disciplinary/subspecialty coordination: Including GI, hematology oncology, hematology [facility] was contacted yesterday by ER attending for transfer [facility] called today patient has bed available, ramiro moon made to transfer to [facility] via ambulance And was hemodynamically stable during transfer GI bleed: With melanotic stool, severe thrombocytopenia with platelet count on 5 No episode of vomiting or hematemesis Ordered for n.p.o., IV Protonix drip Patient is being transferred to [facility] for further care Cirrhosis of liver/esophageal varices/ascites: History of [place] cirrhosis diagnosed approximately 4 years back Did with abdominal distention, abnormal lab, significant thrombocytosis CT abdomen pelvis shows large splenomegaly measuring up to 22 cm in length Moderate ascites with upper abdominal varicosities, distal para esophageal and rectal varices varicosities/history for portal hypertension Patient is being transferred to [facility] for further care Pulmonary nodule CT abdomen pelvis: Reports interval development of multiple subcentimeter indeterminate pulmonary nodule within the lung base, metastatic disease would be diagnosis of exclusion Patient is continued multidisciplinary management Needs continued care at higher level/tertiary center Disposition Patient is medically stable to be transferred to [facility] Current Inpatient Medications Carvedilol (Coreg) 6.25 mg PO BID [facility] Stop: 11/22/19 21:59 Last Admin: 10/24/19 07:44 Dose: 6.25 mg Documented by: Ceftriaxone Sodium 2,000 mg/ (Dextrose) 70 mls @ 100 mls/hr IV DAILY [facility]; Protocol Stop: 11/02/19 08:59 Last Infusion: 10/24/19 08:39 Dose: Infused Documented by: Nitroglycerin (Nitrostat) 0.4 mg SL UD PRN PRN Reason: Chest Pain Stop: 11/22/19 21:43 Ondansetron HCl (Zofran) 4 mg IV Q6H PRN PRN Reason: Nausea Stop: 11/22/19 21:43 Spironolactone (Aldactone) 25 mg PO QAM [facility] Stop: 11/23/19 08:59 Last Admin: 10/24/19 07:44 Dose: 25 mg Documented by: Total Time Total Time Spent Total Time Spent (In Minutes): Approximately 45 minutes Total Time Includes: Examination of the Patient, Discharge Planning and Medication Reconciliation Discharge Plan Discharge Items Patient Disposition: Transfer Acute Care Hospital Reason For Visit: THROMBOCYTOPENIA,VOLUME OVERLOAD Discharge Diagnosis: THROMBOCYTOPENIA , MELENA , ESOPHAGEAL VARICES , ASCITIES Activity: As commented below Activity Comment: As tolerated Non-emergency contact: Primary Care Provider Call non-emergency contact if: you have any medication questions Follow-up/Referrals: Rhina Ibrahim MD [Primary Care Provider] - Diet: Nothing by Mouth Addtl Attending Provider Instructions: Pt is being transferred to [facility] for further care Pending Studies at Discharge: No Stand-Alone Forms: My [facility] Skilled Items Patient informed of condition?: Yes DNR: No Discharge Level of Care: Other Communicable Disease: No Discharge Prognosis: Stable Lines: Peripheral IV Urinary Catheter: Yes Medications and DC Order Prescriptions: Continued carvedilol 6.25 mg tablet 6.25 mg PO BID RF: 0 omeprazole 20 mg capsule,delayed release(DR/EC) 20 mg PO QAM RF: 0 spironolactone 25 mg tablet 25 mg PO QAM RF: 0 Discharge Orders: Discharge Order (Routine); Ordered 10/24/19 Ordered By: Malika Aguilar Admission Data Admit Date/Time: 10/23/19 20:26 Attending Provider: Malika Aguilar Admit Provider: Lewis Urias Primary Care Provider: Rhina Ibrahim Other Providers: Yanci Dean Other Interventions: Discharge Summary Assessment (RN) Last Done: 10/24/19 15:55 DC Date/Time DO NOT enter until pt leaves facility: 10/24/19 15:59
--- NOTE | 2019-10-24 18:19 | Electrocardiogram Report ---
Test Reason : Blood Pressure : / mmHG Vent. Rate : 072 BPM Atrial Rate : 072 BPM P-R Int : 148 ms QRS Dur : 108 ms QT Int : 406 ms P-R-T Axes : 049 003 009 degrees QTc Int : 444 ms Normal sinus rhythm Low voltage QRS Incomplete right bundle branch block Abnormal ECG When compared with ECG of 23-OCT-2019 13:42, No significant change was found Confirmed by Shade Vela ([id number]) on 10/24/2019 6:18:57 PM Referred By: REFERRED SELF Confirmed By:Jac Vela
== END 2019-10-24 15:59 | disposition short-term general hospital (02) | DRG 813 ==
LOC: ED 13:09 → 2S 20:26

== ENCOUNTER 2020-09-15 11:29 | Inpatient (IN) ==
[2020-09-15] MEDS ORDERED: ONDANSETRON INJ 2 MG/ML 2 ML VIAL IV STA (11:55)
[2020-09-15] MEDS ORDERED: MoRPHine SULFATE 4 MG/ML 1 ML CARP\\VIAL IV PRN ×2 (11:55→18:59)
[2020-09-15] MEDS ORDERED: SODIUM CHLORIDE 0.9% 1000ML 1,000 ML IV SCH (12:00)
--- NOTE | 2020-09-15 12:37 | Emergency Department Note ---
Impression & Plan SBO (small bowel obstruction), Inguinal hernia ED Provider Note NAME: JAYCOB URIARTE AGE: 70 SEX: M : 1950 ARRIVES VIA: Ambulance INFORMANT: Patient, ED PROVIDER(S): Cornelio Mars DO CHIEF COMPLAINT: Abdominal pain HPI: The patient is a 70-year-old male who presented to the emergency department by ambulance for an evaluation of abdominal pain. I did evaluate this patient 2 days ago for similar complaints. At that time he had a complete work-up including laboratory and radiographic studies. CT the abdomen and pelvis did not show any acute disease but the patient does have a history of ascites and nonalcoholic cirrhosis. He also has a history of a hernia which was not giving him any problems when he was here the other day. The patient states that he was taking the pain medication he was prescribed. He has noticed some constipation. He also noticed that he had a slight cough and when he was coughing he noticed some pain in his right lower quadrant. He does a history of an inguinal hernia on the right lower quadrant. He notices that this area is giving him more pain. The patient called his primary video game script writer and was referred to the emergency department for further evaluation. The patient states his pain is moderate to severe especially with any ambulation. He does still complain of nausea vomiting. He does not have any specific upper respiratory complaints at this time. ROS: See above HPI for pertinent positives & negatives. A total of 10 systems reviewed and were otherwise negative. PAST MEDICAL HISTORY: See Below PAST SURGICAL HISTORY: See Below FAMILY HISTORY: See Below SOCIAL HISTORY: See Below HOME MEDICATIONS: See Below ALLERGIES: See Below VITALS: See Below PHYSICAL EXAMINATION: GENERAL: The patient is awake and alert. He is somewhat anxious appearing overall comfortable. EYES: The conjunctivae are clear. The pupils are round and reactive. EARS, NOSE, MOUTH AND THROAT: The nose is without any evidence of any deformity. NECK: The neck is nontender and supple. RESPIRATORY: Normal respiratory effort is noted there is no evidence of wheezing rhonchi or rales CARDIOVASCULAR: Regular rate and rhythm noted there no murmurs rubs or gallops normal S1 normal S2. GASTROINTESTINAL: The abdomen is moderately distended and diffusely tender. There is an inguinal hernia noted in the right lower quadrant. It is very significant and not easily reducible at this time. MUSCULOSKELETAL/EXTREMITIES: There is no evidence of gross deformity full range of motion is noted in the hips and shoulders. SKIN: Pedal edema was noted bilaterally. NEUROLOGIC: Patient is awake alert and oriented x3. MEDICAL DECISION MAKING: The patient is a 70-year-old male who presented to the emergency department for abdominal pain and vomiting. The patient was evaluated in our emergency department 2 days ago by myself. At that time he had a complete work-up including CT the abdomen and pelvis. He does have a known inguinal hernia but this did not appear to be the source of the patient's symptoms at that time. He returns today with worsening pain. He was vomiting. CT appears to be consistent today with a small bowel obstruction associated with the hernia. I discussed the patient's laboratory and radiographic studies with him. The patient was treated with IV fluids and IV pain medication in the emergency department. He was also treated with IV antibiotics. The patient was feeling much better but at this time he does appear to be consistent with bowel obstruction. For this reason I discussed his case with the on-call general surgeon as well as the on-call [facility] hospitalist group. They will evaluate the patient in the emergency department for further management and disposition. The patient does have a history of thrombocytopenia. I will defer NG tube placement until the patient is evaluated by the surgeon. Triage Nursing notes reviewed. Prior medical records reviewed Vital Signs: reviewed and remarkable for elevated blood pressure Differential diagnosis: Etiologies such as appendicitis, diverticulitis, obstruction, inflammatory bowel disease, renal colic, PUD, biliary pathology, pancreatitis, mesenteric ischemia, aortic pathology, infections, genitourinary, UTI, perforated viscus, as well as others were entertained. ER treatment provided: See below Diagnostics interpreted by me: ECG: EKG was obtained in the emergency department. My interpretation is normal sinus rhythm at 65 bpm. Incomplete right bundle branch block pattern was noted. There was no ectopy. This was compared to a tracing from September 132020. No significant changes were noted. Cardiac Monitoring: An order was placed for continuous cardiac monitoring. The monitor shows a rate of 81 bpm with sinus rhythm. Laboratory studies: As stated above and show below. Imaging studies: See below Consultation(s): 1332: I discussed this case with the patient's primary video game script writer, Dr. Bell. He was familiar with the patient's condition and referred the patient here after his pain worsened. I wanted to give him an update on what we found including the CT report. 1335: I discussed this case with Margie Doss who is on-call for the surgical group. They will evaluate the patient. 1430: I discussed this case with Dr. Negrete who is on-call for [facility]. He will evaluate the patient in the emergency department. Past Med/Surg History Medical History (Updated 09/15/20 @ 14:53 by Margie Wilkinson PA-C) Basal cell carcinoma removal from left , left side of face Cirrhosis Esophageal varices Hemolytic anemia Inguinal hernia right side Pancreatitis Portal hypertension Pulmonary embolism bilateral lungs Thrombocytopenia Umbilical hernia Surgical History History of cataract surgery bilateral eyes History of cholecystectomy History of colonoscopy History of esophagogastroduodenoscopy (EGD) with banding of esophagous due to portal hypertension History of tonsillectomy and adenoidectomy Social History Smoking Status: Never smoker Hx Alcohol Use: No Hx Substance Use: No Preferred Language: Moldovan Communication Ability: Effective River Tester Required: No Beliefs That Will Affect Care: None marital status: Current Living Situation: Spouse Feels Safe at Home: Yes Assistive Devices: Glasses and Oxygen - Continuous Allergies Allergies Allergy/AdvReac Type Severity Reaction Status Date / Time No Known Allergies Allergy Verified 09/15/20 14:26 Home Meds Home Medications Medication Instructions Recorded Confirmed carvedilol 6.25 mg PO BID 07/24/18 09/15/20 omeprazole 20 mg PO QAM 07/24/18 09/15/20 furosemide [Lasix] 40 mg PO QAM 11/12/19 09/15/20 acetaminophen [Tylenol Extra 1,000 mg PO Q4H PRN 09/13/20 09/15/20 Strength] acyclovir 400 mg PO BID 09/13/20 09/15/20 betamethasone dipropionate 1 applic TOPICAL BID PRN 09/13/20 09/15/20 metformin 1,000 mg PO QAM 09/13/20 09/15/20 spironolactone 150 mg PO QAM 09/13/20 09/15/20 Previous Rx's Medication Instructions Recorded ciprofloxacin HCl [Cipro] 500 mg PO BID #20 tab 09/13/20 ondansetron HCl [Zofran] 4 mg PO Q8H PRN #15 tab 09/13/20 oxycodone 5 mg PO Q4H PRN #20 tab 09/13/20 Results & Data (ED) Vital Signs Vital Signs - 24 hr 09/15/20 11:30 09/15/20 11:55 09/15/20 12:00 Temperature 37.3 C Temperature Source Oral Pulse Rate 66 66 64 Pulse Rate from SpO2 Sensor 63 Pulse Rhythm Regular Regular Respiratory Rate 17 17 19 Respiratory Effort / Characteristics Non-Labored Spontaneous Respiratory Depth Normal Respiratory Pattern Regular Blood Pressure 138/75 147/77 H Blood Pressure Mean 96 113 Pulse Oximetry 96 96 98 Oxygen Delivery Method Room Air Room Air Sepsis Recent Fever Within 48 Hours No Sepsis New/Unexplained Change in Mental Status No Sepsis Action Taken by Nursing No Action Required 09/15/20 12:30 09/15/20 13:30 09/15/20 14:00 Temperature Temperature Source Pulse Rate 61 81 74 Pulse Rate from SpO2 Sensor 63 81 74 Pulse Rhythm Respiratory Rate 15 14 14 Respiratory Effort / Characteristics Respiratory Depth Respiratory Pattern Blood Pressure 140/64 141/77 H 136/74 Blood Pressure Mean 86 104 104 Pulse Oximetry 99 96 95 Oxygen Delivery Method Sepsis Recent Fever Within 48 Hours Sepsis New/Unexplained Change in Mental Status Sepsis Action Taken by [facility] Medications Current Medication List: was personally reviewed by me Laboratory Data Attestation: I reviewed the patient's lab results. Result diagrams: 09/15/20 12:30 09/15/20 12:30 Lab Results 09/15/20 09/15/20 09/15/20 Range/Units 12:30 12:30 12:30 WBC 4.36 L (4.8-10.8) K/uL RBC 5.23 (4.7-6.1) M/uL Hgb 16.0 (14.0-18.0) g/dL Hct 45.8 (42-52) % MCV 87.6 (80-100) fL MCH 30.6 (25-34) pg MCHC 34.9 (32-36) g/dL RDW Std Deviation 45.0 (36.4-46.3) fL RDW Coeff of Bella 14.0 (11.5-14.5) % Plt Count 71 L (130-400) K/uL MPV 10.2 (7.4-10.4) fL Immature Gran % (Auto) 0.2 % Neut % (Auto) 92.0 % Lymph % (Auto) 4.4 % [place] % (Auto) 3.4 % Eos % (Auto) 0.0 % Baso % (Auto) 0.0 % Neut # (Auto) 4.01 (1.4-6.5) K/uL Lymph # (Auto) 0.19 L (1.2-3.4) K/uL [place] # (Auto) 0.15 (0.11-0.59) K/uL Eos # (Auto) 0.00 (0-0.5) K/uL Baso # (Auto) 0.00 (0-0.2) K/uL Immature Gran # (Auto) 0.01 (0.00-0.02) K/uL PT 11.7 (9.0-12.0) Seconds INR 1.1 (0.9-1.1) APTT 27.8 (21.0-31.0) Seconds PTT Ratio 1.0 Sodium 137 (136-145) mmol/L Potassium 4.0 (3.5-5.1) mmol/L Chloride 105 (98-107) mmol/L Carbon Dioxide 27 (21-32) mmol/L Anion Gap 6.0 (3-11) BUN 12 (7-18) mg/dl Creatinine 1.00 (0.6-1.4) mg/dl Est Cr Clr Drug Dosing 84.1 ml/min Est GFR ( Amer) 86.8 Est GFR (Non-Af Amer) 74.9 BUN/Creatinine Ratio 12.3 (10-20) Glucose 169 H (70-99) mg/dl Calcium 9.0 (8.5-10.1) mg/dl Total Bilirubin 2.0 H (0.2-1) mg/dl AST 25 (15-37) U/L ALT 26 (12-78) U/L Alkaline Phosphatase 50 (45-117) U/L Troponin I < 0.015 (0-0.045) ng/ml Total Protein 6.4 (6.4-8.2) gm/dl Albumin 3.8 (3.4-5.0) gm/dl Globulin 2.6 (2.5-4.0) gm/dl Albumin/Globulin Ratio 1.5 (0.9-2) Lipase 122 (73-393) U/L COVID-19 Eval Order SARS-CoV-2, RNA, NAAT (NEGATIVE) 09/15/20 09/15/20 Range/Units 12:30 12:30 WBC (4.8-10.8) K/uL RBC (4.7-6.1) M/uL Hgb (14.0-18.0) g/dL Hct (42-52) % MCV (80-100) fL MCH (25-34) pg MCHC (32-36) g/dL RDW Std Deviation (36.4-46.3) fL RDW Coeff of Bella (11.5-14.5) % Plt Count (130-400) K/uL MPV (7.4-10.4) fL Immature Gran % (Auto) % Neut % (Auto) % Lymph % (Auto) % [place] % (Auto) % Eos % (Auto) % Baso % (Auto) % Neut # (Auto) (1.4-6.5) K/uL Lymph # (Auto) (1.2-3.4) K/uL [place] # (Auto) (0.11-0.59) K/uL Eos # (Auto) (0-0.5) K/uL Baso # (Auto) (0-0.2) K/uL Immature Gran # (Auto) (0.00-0.02) K/uL PT (9.0-12.0) Seconds INR (0.9-1.1) APTT (21.0-31.0) Seconds PTT Ratio Sodium (136-145) mmol/L Potassium (3.5-5.1) mmol/L Chloride (98-107) mmol/L Carbon Dioxide (21-32) mmol/L Anion Gap (3-11) BUN (7-18) mg/dl Creatinine (0.6-1.4) mg/dl Est Cr Clr Drug Dosing ml/min Est GFR ( Amer) Est GFR (Non-Af Amer) BUN/Creatinine Ratio (10-20) Glucose (70-99) mg/dl Calcium (8.5-10.1) mg/dl Total Bilirubin (0.2-1) mg/dl AST (15-37) U/L ALT (12-78) U/L Alkaline Phosphatase (45-117) U/L Troponin I (0-0.045) ng/ml Total Protein (6.4-8.2) gm/dl Albumin (3.4-5.0) gm/dl Globulin (2.5-4.0) gm/dl Albumin/Globulin Ratio (0.9-2) Lipase (73-393) U/L COVID-19 Eval Order Covid19 [facility]Now [facility] SARS-CoV-2, RNA, NAAT POSITIVE A* (NEGATIVE) Administered Medications Morphine Sulfate (Morphine Sulfate 4 Mg/Ml 1 Ml Carp\Vial) 4 mg IV Q15M PRN PRN Reason: Pain Stop: 09/29/20 11:54 Last Admin: 09/15/20 12:37 Dose: 4 mg Documented by: [id number] Discontinued Medications Sodium Chloride (Nss 1000ml) 1,000 mls @ 999 mls/hr IV .Q1H1M YEHUDA Stop: 09/15/20 13:00 Last Infusion: 09/15/20 13:14 Dose: 0 mls/hr Documented by: [id number] Admin: 09/15/20 12:37 Dose: 999 mls/hr Documented by: [id number] Piperacillin Sod/Tazobactam Sod (Zosyn) 4.5 gm in 120 mls @ 240 mls/hr IV NOW ONE Stop: 09/15/20 13:52 Last Infusion: 09/15/20 14:20 Dose: 0 mls/hr Documented by: [id number] Admin: 09/15/20 13:41 Dose: 240 mls/hr Documented by: [id number] Ondansetron HCl (Ondansetron Inj 2 Mg/Ml 2 Ml Vial) 4 mg IV NOW STA Stop: 09/15/20 11:56 Last Admin: 09/15/20 12:37 Dose: 4 mg Documented by: [id number] Imaging Data Radiologist's Impression: Patient: JAYCOB URIARTE Admit Date: 09/15/20 MR#: [id number] Address1: [address] [place] [address] Acct ID:[id number] Address2: [address] Date: 1950 [facility] Zip: [place] [id number] Age: 70 Location: ED Sex: M Room/Bed: Att Phy: Diagnosis: ABDOMINAL PAIN Paula Phy: Rhina Ibrahim MD Service Date: 09/15/20 [facility] Phy: Ruiz Bell MD Interpreting Phy: Shawn Dowling MD Admit Phy: Ordering Phy: Cornelio Mars DO cc: ~ CT OF THE ABDOMEN AND PELVIS WITHOUT CONTRAST CLINICAL HISTORY: Right lower quadrant abdominal pain. Nausea and vomiting. COMPARISON STUDY: CT of the abdomen and pelvis the 2020. TECHNIQUE: Axial images of the abdomen and pelvis were obtained without IV contrast. Images were reviewed in the axial, sagittal, and coronal planes. Automated exposure control was utilized for the study. A dose lowering techn ique was utilized adhering to the principles of ALARA. FINDINGS: Note is again made of multifocal airspace opacities within the lower lungs. A nodular irregular 2.7 cm opacity within the left lower lobe on image 30 of [address] of September 13, 2020. This remains indeterminate. Numerous large paraesophageal varices are again noted. No pneumatosis, free air or portal venous gas is present. Evaluation of the abdomen and pelvis is suboptimal on this unenhanced examination. The liver is cirrhotic. Mild biliary ductal dilatation is likely related to cholecystectomy. Moderate splenomegaly is noted. A small amount of ascites is noted. Colonic diverticulosis is noted without evidence for acute diverticulitis. Unenhanced images of the adrenal glands and kidneys are unremarkable. There is no hydronephrosis. There has been interval development of moderate dilatation of the proximal to mid small bowel due to a right inguinal hernia which contains multiple small bowel loops. The transition point is within the right lower quadrant at the proximal aspect of the hernia, shown on image 262 of 471. The more distal small bowel is decompressed. Moderate ascites within the right inguinal hernia sac is noted. There is no evidence for acute appendicitis. There is mild wall thickening of several small bowel loops. IMPRESSION: 1. Interval development of a small bowel obstruction since CT of September 13, 2020. This is due to a right inguinal hernia which contains multiple small bowel loops. Transition point at the proximal aspect of the right inguinal hernia. Distal small bowel decompressed. Mild wall thickening of several small bowel loops. No pneumatosis, free air or portal venous gas. Moderate amount of ascites within the right inguinal hernia. 2. Cirrhosis with manifestations of portal hypertension including splenomegaly, varices formation and small amount of ascites. 3. No significant change in lower lung airspace opacities, including a 2.7 cm irregular left lower lobe nodular opacity. An infectious process is favored. However, a neoplastic process cannot be completely excluded and therefore a follow-up chest CT in 3 months to ensure resolution is recommended. ACT 112: Positive. There are findings on this exam that require communication between the performing entity and the patient following Patient Test Result Information Act ([place] Act 112) guidelines. Electronically signed by: Shawn Dowling M.D. 09/15/2020 1:21 PM Dictated: 09/15/20 1309 Transcribed: 09/15/20 1309 Blood Pressure Blood Pressure Findings: Elevated blood pressure Blood Pressure Disposition: further management by hospitalist Discharge Plan Visit Data Chief Complaint: Abdominal Pain ED Provider: Cornelio Mars Discharge Problem: SBO (small bowel obstruction), Inguinal hernia Patient Disposition: Being Evaluated by Hospitalist Condition: Good Forms Stand Alone Forms: [facility] [employer] Prescriptions Prescriptions: No Action furosemide [Lasix] 40 mg Tablet 40 mg PO QAM RF: 0 acyclovir 400 mg tablet 400 mg PO BID RF: 0 acetaminophen [Tylenol Extra Strength] 500 mg Tablet 1,000 mg PO Q4H PRN (Reason: Pain) RF: 0 betamethasone dipropionate 0.05 % Cream 1 applic TOPICAL BID PRN (Reason: Rash) RF: 0 metformin 500 mg tablet extended release 24 hr 1,000 mg PO QAM RF: 0 spironolactone 50 mg tablet 150 mg PO QAM RF: 0 ciprofloxacin HCl [Cipro] 500 mg tablet 500 mg PO BID Qty: 20 RF: 0 oxycodone 5 mg tablet 5 mg PO Q4H PRN (Reason: pain) Qty: 20 RF: 0 ondansetron HCl [Zofran] 4 mg tablet 4 mg PO Q8H PRN (Reason: nausea and vomiting) Qty: 15 RF: 0 carvedilol 6.25 mg tablet 6.25 mg PO BID RF: 0 omeprazole 20 mg capsule,delayed release(DR/EC) 20 mg PO QAM RF: 0 Referrals Referrals: Rhina Ibrahim MD [Primary Care Provider] - Discharge Problem: Inguinal hernia Qualifiers: Obstruction and gangrene presence: with obstruction but without gangrene Later ality: unilateral Recurrence: not specified as recurrent Qualified Code(s): K40.30 - Unilateral inguinal hernia, with obstruction, without gangrene, not specified as recurrent
[2020-09-15 12:40] LABS: Hematocrit (blood only) 45.8 % (42-52); Mean Corpuscular Hemoglobin 30.6 pg (25-34); Mean Corpuscular Hgb Conc 34.9 g/dL (32-36); Mean Corpuscular Volume 87.6 fL (80-100); Red Blood Count 5.23 M/uL (4.7-6.1); White Blood Count 4.36 K/uL (4.8-10.8)
[2020-09-15 12:44] LABS: Immature Granulocytes # (auto) 0.01 K/uL (0.00-0.02); Immature Granulocytes % (auto) 0.2 %; Lymphocytes # (auto) 0.19 K/uL (1.2-3.4); Lymphocytes % (auto) 4.4 %; Mean Platelet Volume 10.2 fL (7.4-10.4); Monocytes # (auto) 0.15 K/uL (0.11-0.59); Monocytes % (auto) 3.4 %; Neutrophils # (auto) 4.01 K/uL (1.4-6.5); Platelet Count 71 K/uL (130-400)
[2020-09-15 12:56] LABS: INR 1.1 (0.9-1.1); Partial Thromboplastin Time 27.8 Seconds (21.0-31.0); Prothrombin Time 11.7 Seconds (9.0-12.0)
[2020-09-15 13:00] LABS: Alanine Aminotransferase 26 U/L (12-78); Albumin Level 3.8 gm/dl (3.4-5.0); Aspartate Aminotransferase 25 U/L (15-37); BUN Creatinine Ratio 12.3 (10-20); Blood Urea Nitrogen 12 mg/dl (7-18); Carbon Dioxide 27 mmol/L (21-32); Chloride 105 mmol/L (98-107); Creatinine Clr Calc Pharmacy 84.1 ml/min; Est GFR (African American) 86.8; Est GFR (Non-African American) 74.9; Glucose 169 mg/dl (70-99); Lipase 122 U/L (73-393); Sodium 137 mmol/L (136-145)
[2020-09-15 13:10] LABS: Albumin Globulin Ratio 1.5 (0.9-2); Alkaline Phosphatase 50 U/L (45-117); Globulin 2.6 gm/dl (2.5-4.0); Total Protein 6.4 gm/dl (6.4-8.2); Troponin I < 0.015 ng/ml (0-0.045)
--- NOTE | 2020-09-15 13:22 | CT Scan Report ---
CT OF THE ABDOMEN AND PELVIS WITHOUT CONTRAST CLINICAL HISTORY: Right lower quadrant abdominal pain. Nausea and vomiting. COMPARISON STUDY: CT of the abdomen and pelvis the 2020. TECHNIQUE: Axial images of the abdomen and pelvis were obtained without IV contrast. Images were revi ewed in the axial, sagittal, and coronal planes. Automated exposure control was utilized for the [place]. A dose lowering technique was utilized adhering to the principles of ALARA. FINDINGS: Note is again made of multifocal airspace opacities within the lower lungs. A nodular irreg ular 2.7 cm opacity within the left lower lobe on image 30 of [address] of September 13. This remains indeterminate. Numerous large paraesophageal varices are again noted. No pneumatosis, free air or portal venous gas is present. Evaluation of the abdomen and pelvis is suboptimal on this unenhanced examination. The liver is cirrhotic. Mild biliary ductal dilatation is likely related to cholecystectomy. Moderate splenomegaly is noted. A small amount of ascites is noted. Colonic divertic ulosis is noted without evidence for acute diverticulitis. Unenhanced images of the adrenal glands an d kidneys are unremarkable. There is no hydronephrosis. There has been interval development of modera te dilatation of the proximal to mid small bowel due to a right inguinal hernia which contains multip le small bowel loops. The transition point is within the right lower quadrant at the proximal aspect of the hernia, shown on image 262 of 471. The more distal small bowel is decompressed. Moderate ascit es within the right inguinal hernia sac is noted. There is no evidence for acute appendicitis. There is mild wall thickening of several small bowel loops. IMPRESSION: 1. Interval development of a small bowel obstruction since CT of September 13, 2020. This is due to a r ight inguinal hernia which contains multiple small bowel loops. Transition point at the proximal aspe ct of the right inguinal hernia. Distal small bowel decompressed. Mild wall thickening of several sma ll bowel loops. No pneumatosis, free air or portal venous gas. Moderate amount of ascites within the right inguinal hernia. 2. Cirrhosis with manifestations of portal hypertension including splenomegaly, varices formation and small amount of ascites. 3. No significant change in lower lung airspace opacities, including a 2.7 cm irregular left lower lo be nodular opacity. An infectious process is favored. However, a neoplastic process cannot be complet paige excluded and therefore a follow-up chest CT in 3 months to ensure resolution is recommended. ACT 112: Positive. There are findings on this exam that require communication between the performing entity and the patient following Patient Test Result Information Act ([place] Act 112) guidelines. Electronically signed by: Shawn Dowling M.D. 09/15/2020 1:21 PM
[2020-09-15] MEDS ORDERED: PIPERACILLIN/TAZOBACTAM 4.5 GM/120 ML BAG IV ONE (13:23)
[2020-09-15] MEDS ORDERED: PIPERACILL/TAZOBAC CONSULT ACTIVE PRN (13:23)
--- NOTE | 2020-09-15 13:59 | Surgery Consultation ---
Date of Consultation September 15, 2020 Assessment & Plan (1) Incarcerated right inguinal hernia: This is a 70y M with a PMH of non-alcoholic cirrhosis, portal hypertension, esophageal varices, and thrombocytopenia who presents to the [facility] ED on 09/15/20 with complaints of abdominal pain associated with nausea/vomiting since Saturday. A CT a/p in the ER revealed findings concerning for small bowel obstruction due to a right inguinal hernia containing multiple loops of small bowel. WBC: 4.3, platelets: 71, INR: 1.1, PTT: 27. On examination patient has generalized abdominal tenderness to palpation in addition to an acutely tender R inguinal hernia that is non-reducible. Vital signs are stable. Case discussed with the hospitalists who agreed patient is okay for surgery with his history of thrombocytopenia & cirrhosis. At this time he is denying any respiratory symptoms related to his COVID diagnosis. We will book patient for the OR for a right open inguinal hernia repair. Appreciate hospitalists admitting patient. Patient was seen and examined with Dr. Mcclellan. Supervising Physician Co-Signing Physician Notes As per Margie Doss physician human resources office assistant Dick was seen in ER approximately 40 hours ago with abdominal pain distention was sent home yesterday he felt more distended came in this afternoon after he had a bout of emesis and started having pain in the right groin scrotal area He stated that he never knew he had a hernia there never had any discomfort to about a year ago when he is noticed a hernia but it was asymptomatic He has had a bulge above in the umbilical area for a long time thinking that that is another hernia Is been seen by Dr. Ibrahim oncologist efficiency manager for cirrhosis gets routine banding of esophageal varices Platelet count is 71,000 his INR is 1.1 The abdomen is distended nontender right inguinal area easily appreciated hernia that extends beyond the external ring it is tender unable to reduce there is no skin changes or cellulitis at this time Patient has a longstanding diastases recti At this point the patient needs to go to surgery to have this hernia fixed reduce the incarceration we will do it open try to avoid mesh if possible risk and complication were explained to him and his and he would like to proceed with that We discussed the situation with the medical service I would not too concerned about the low platelets there was concerned if he needed the transfusion for any reason and his count was positive and they are aware of that situation All questions were answered History of Present Illness History of Present Illness This is a 70y M with a PMH of non-alcoholic cirrhosis, portal hypertension, esophageal varices, and thrombocytopenia who presents to the [facility] ED on 09/15/20 with complaints of abdominal pain associated with nausea/vomiting. Of significance the patient presented to the ER on Saturday with complaints of abdominal pain that started that morning. In the ER a CT a/p was performed that showed a non obstructing bowel containing R inguinal hernia along with hepatic cirrhosis with splenomegaly and ascites. GI was called who recommended patient be sent out with a course of cipro and anti-nausea medication with close follow up, as not enough ascites present to be drained. Patient was sent home and on Saturday he reports laying in bed all day, nauseated, not eating/drinking, and still not quite feeling well. This AM he continued having persistent abdominal pain and started having bouts of emesis and he ultimately decided to return to the ER for further evaluation. Patient does report an increase in pain in his right inguinal hernia as well. A repeat CT a/p revealed interval development of a small bowel obstruction due to a right inguinal hernia which contains multiple small bowel loops, with transition point at the proximal aspect of the right inguinal hernia. Patient states his right inguinal hernia has been present for at least the year and that it has not ever caused him any issues prior to this. Of note patient also tested + for Covid in the ER. He denies any fevers/chills or chest pain/shortness of breath. His last BM was Saturday and he last ate on Saturday. Surgery was consulted for further evaluation. Allergies Allergy/AdvReac Type Severity Reaction Status Date / Time No Known Allergies Allergy Verified 09/15/20 14:26 Home Medications Medication Instructions Recorded Confirmed Type carvedilol 6.25 mg PO BID 07/24/18 09/15/20 History omeprazole 20 mg PO QAM 07/24/18 09/15/20 History furosemide [Lasix] 40 mg PO QAM 11/12/19 09/15/20 History acetaminophen [Tylenol Extra 1,000 mg PO Q4H PRN 09/13/20 09/15/20 History Strength] acyclovir 400 mg PO BID 09/13/20 09/15/20 History betamethasone dipropionate 1 applic TOPICAL BID PRN 09/13/20 09/15/20 History ciprofloxacin HCl [Cipro] 500 mg PO BID #20 tab 09/13/20 09/15/20 Rx metformin 1,000 mg PO QAM 09/13/20 09/15/20 History ondansetron HCl [Zofran] 4 mg PO Q8H PRN #15 tab 09/13/20 09/15/20 Rx oxycodone 5 mg PO Q4H PRN #20 tab 09/13/20 09/15/20 Rx spironolactone 150 mg PO QAM 09/13/20 09/15/20 History Patient History Medical History (Updated 09/15/20 @ 14:53 by Margie Wilkinson PA-C) Basal cell carcinoma removal from left , left side of face Cirrhosis Esophageal varices Hemolytic anemia Inguinal hernia right side Pancreatitis Portal hypertension Pulmonary embolism bilateral lungs Thrombocytopenia Umbilical hernia Surgical History History of cataract surgery bilateral eyes History of cholecystectomy History of colonoscopy History of esophagogastroduodenoscopy (EGD) with banding of esophagous due to portal hypertension History of tonsillectomy and adenoidectomy Social History Smoking Status: Never smoker Hx Alcohol Use: No Hx Substance Use: No Preferred Language: Colombian Communication Ability: Effective Sec Reporting Consultant Required: No Beliefs That Will Affect Care: None marital status: Current Living Situation: Spouse Other Information That Helps Us Care for You: No Feels Safe at Home: Yes Safety Concerns: Feels Safe At This Time Assistive Devices: Cane, Glasses and Oxygen - Continuous Review of Systems Constitutional: no fever and no chills Respiratory: no dyspnea Cardiovascular: no chest pain Gastrointestinal: + abdominal pain (generalized abdominal pain and R inguinal pain), + nausea and + vomiting last BM saturday (normal) Physical Exam Physical Exam: awake/alert Constitutional: well developed and well nourished; no acute distress Respiratory: normal respiratory effort Cardiovascular: Rate/Rhythm: regular rate Gastrointestinal (Abdomen): Inspection/Auscultation: + abdomen distended (mild-moderate) Percussion/Palpation: + abdomen tender (generalized abdominal ttp) and abdomen soft large right inguinal hernia, tender to palpation, non- reducible Results & Data ([place]) Vital Signs (Past 12 Hours) Vital Signs Temp Pulse Resp BP Pulse Ox 09/15/20 13:30 81 14 141/77 H 96 09/15/20 12:30 61 15 140/64 99 09/15/20 12:00 64 19 147/77 H 98 09/15/20 11:55 66 17 96 09/15/20 11:30 37.3 C 66 17 138/[address] OF THE ABDOMEN AND PELVIS WITHOUT CONTRAST CLINICAL HISTORY: Right lower quadrant abdominal pain. Nausea and vomiting. COMPARISON STUDY: CT of the abdomen and pelvis the 2020. TECHNIQUE: Axial images of the abdomen and pelvis were obtained without IV contrast. Images were reviewed in the axial, sagittal, and coronal planes. Automated exposure control was utilized for the study. A dose lowering technique was utilized adhering to the principles of ALARA. FINDINGS: Note is again made of multifocal airspace opacities within the lower lungs. A nodular irregular 2.7 cm opacity within the left lower lobe on image 30 of [address] of September 13, 2020. This remains indeterminate. Numerous large paraesophageal varices are again noted. No pneumatosis, free air or portal venous gas is present. Evaluation of the abdomen and pelvis is suboptimal on this unenhanced examination. The liver is cirrhotic. Mild biliary ductal dilatation is likely related to cholecystectomy. Moderate splenomegaly is noted. A small amount of ascites is noted. Colonic diverticulosis is noted without evidence for acute diverticulitis. Unenhanced images of the adrenal glands and kidneys are unremarkable. There is no hydronephrosis. There has been interval development of moderate dilatation of the proximal to mid small bowel due to a right inguinal hernia which contains multiple small bowel loops. The transition point is within the right lower quadrant at the proximal aspect of the hernia, shown on image 262 of 471. The more distal small bowel is decompressed. Moderate ascites within the right inguinal hernia sac is noted. There is no evidence for acute appendicitis. There is mild wall thickening of several small bowel loops. IMPRESSION: 1. Interval development of a small bowel obstruction since CT of September 13, 2020. This is due to a right inguinal hernia which contains multiple small bowel loops. Transition point at the proximal aspect of the right inguinal hernia. Distal small bowel decompressed. Mild wall thickening of several small bowel loops. No pneumatosis, free air or portal venous gas. Moderate amount of ascites within the right inguinal hernia. 2. Cirrhosis with manifestations of portal hypertension including splenomegaly, varices formation and small amount of ascites. 3. No significant change in lower lung airspace opacities, including a 2.7 cm irregular left lower lobe nodular opacity. An infectious process is favored. However, a neoplastic process cannot be completely excluded and therefore a follow-up chest CT in 3 months to ensure resolution is recommended. ACT 112: Positive. There are findings on this exam that require communication between the performing entity and the patient following Patient Test Result Information Act ([place] Act 112) guidelines. Electronically signed by: Shawn Dowling M.D. 09/15/2020 1:21 PM PG Care Time/CCT Total # of Minutes Spent Total Time Spent with Patient: Total time spent is greater than 50% in coordination of care (as documented) at patient's floor/unit and/or counseling patient: Coding Level of Care Code 28311 Initial Inpt Care Lvl 1 Diagnoses Incarcerated right inguinal hernia K40.30
--- NOTE | 2020-09-15 14:13 | History & Physical Report ---
Date of Service September 15, 2020 Assessment & Plan (1) SBO (small bowel obstruction): (2) Abdominal pain: (3) Inguinal hernia: (4) Portal hypertension: (5) Thrombocytopenia: (6) Cirrhosis: (7) Esophageal varices: Admit med surg, surgery consult, COVID pos, but afebrile, 96% on RA, HR ok, not SOB, isolation, supportive care at this time, continue OP meds where appropriate, NPO, IVFs, Monitor daily labs. ROS-No Headache, No Visual Changes, Pos Nausea, Pos Vomiting, No Fever, No Chills, No Neck Pain or Stiffness, No Chest Pain, No Palpitations, No SOB, No BHAT, No Cough, No Sputum, No Wheezing, + Abdominal Pain, No Diarrhea, No Hematemesis, No Hemoptysis, No Unexpected Weight Loss, No Flank pain, No Melena, No Hematochezia, No Frequency, No Urgency, No Burning, No Hematuria, No Rashes, No Diaphoresis. Appetite is Normal Physical Exam Gen-AAO x 3, NAD, Afebrile Head-NCAT, EOMI, PERRLA, Anicteric Sclera, No Posterior Pharyngeal Erythema Neck-Supple, No JVD, No Thyromegaly, No Masses, No LAD, No Bruits Lungs-Clear to Auscultation Bilaterally, No Rales, No Rhonchi, No Wheezing, No Crepitus Chest-No S4, +S1, +S2, No S3, No Murmurs, No Rubs, No Gallops, No Ectopy Abdomen-Soft, Bowel Sounds Present, Tender, Distended c Large ventral hernia and R Inguinal Hernia, No Hepatomegaly, No Splenomegaly, No Palpable Masses, No Rebound, No Rigidity, No Guarding Musculoskeletal-Full Range of Motion Bilaterally, No CVAT Extremities-No Cyanosis, No Clubbing, No Edema Nuero-Cranial Nerves II-XII grossly intact, Motor WNL, DTRs WNL, Strength WNL, Non Focal Psych-Normal Mood History of Present Illness 70 yo male c PMH Anemia, Thrombocytopenia, Cirrhosis from Alcoholo and Substance Abuse, Esophageal Varices, Basal Cell CA, Pancreatitis, Hemolytic Anemia, and Portal Hypertension presents c abd pain. He was here 2 days ago c similar symptoms, but the workup was negative. This time however, he was found to have a SBO sec to his inguinal hernia. He tested positive for COVID as well. He notes abd pain and distension as well as constipation. Primary Care Provider: Rhina Ibrahim MD Allergies Allergy/AdvReac Type Severity Reaction Status Date / Time No Known Allergies Allergy Verified 09/13/20 14:02 Home Medications Medication Instructions Recorded Confirmed Type carvedilol 6.25 mg PO BID 07/24/18 09/13/20 History omeprazole 20 mg PO QAM 07/24/18 09/13/20 History furosemide [Lasix] 40 mg PO DAILY 11/12/19 09/13/20 History acetaminophen [Tylenol Extra 1,000 mg PO Q4H PRN 09/13/20 09/13/20 History Strength] acyclovir 400 mg PO BID 09/13/20 09/13/20 History betamethasone dipropionate 1 applic TOPICAL BID PRN 09/13/20 09/13/20 History ciprofloxacin HCl [Cipro] 500 mg PO BID #20 tab 09/13/20 Rx metformin 1,000 mg PO DAILY 09/13/20 09/13/20 History ondansetron HCl [Zofran] 4 mg PO Q8H PRN #15 tab 09/13/20 Rx oxycodone 5 mg PO Q4H PRN #20 tab 09/13/20 Rx spironolactone 150 mg PO DAILY 09/13/20 09/13/20 History Past Med/Surg History Medical History Basal cell carcinoma removal from left , left side of face Hemolytic anemia Inguinal hernia right side Pancreatitis Portal hypertension Pulmonary embolism bilateral lungs Umbilical hernia Surgical History History of cataract surgery bilateral eyes History of cholecystectomy History of colonoscopy History of esophagogastroduodenoscopy (EGD) with banding of esophagous due to portal hypertension History of tonsillectomy and adenoidectomy Social History Smoking Status: Never smoker Hx Alcohol Use: No Hx Substance Use: No Preferred Language: Algerian Communication Ability: Effective Nuclear Engineering Technician Required: No Beliefs That Will Affect Care: None marital status: Current Living Situation: Spouse Feels Safe at Home: Yes Assistive Devices: Glasses and Oxygen - Continuous Results & Data Results & Data ([facility]) Vital Signs (Past 12 Hours) Vital Signs Temp Pulse Resp BP Pulse Ox 09/15/20 13:30 81 14 141/77 H 96 09/15/20 12:30 61 15 140/64 99 09/15/20 12:00 64 19 147/77 H 98 09/15/20 11:55 66 17 96 09/15/20 11:30 37.3 C 66 17 138/75 96 Allergies No Known Allergies Allergy (Verified 09/13/20 14:02) Height/Weight/Isolation Height 6 ft 1 in Weight 102.7 kg Chemistry 09/15/20 12:30 Sodium 137 Potassium 4.0 Chloride 105 Carbon Dioxide 27 Anion Gap 6.0 BUN 12 Creatinine 1.[address] Ab&P IMPRESSION: 1. Interval development of a small bowel obstruction since CT of September 13, 2020. This is due to a right inguinal hernia which contains multiple small bowel loops. Transition point at the proximal aspect of the right inguinal hernia. Distal small bowel decompressed. Mild wall thickening of several small bowel loops. No pneumatosis, free air or portal venous gas. Moderate amount of ascites within the right inguinal hernia. 2. Cirrhosis with manifestations of portal hypertension including splenomegaly, varices formation and small amount of ascites. 3. No significant change in lower lung airspace opacities, including a 2.7 cm irregular left lower lobe nodular opacity. An infectious process is favored. However, a neoplastic process cannot be completely excluded and therefore a follow-up chest CT in 3 months to ensure resolution is recommended. (1) Abdominal pain Abdominal location: right upper quadrant Qualified Code(s): R10.11 - Right upper quadrant pain (2) Inguinal hernia Laterality: unilateral Obstruction and gangrene presence: with obstruction but without gangrene Recurrence: not specified as recurrent Qualified Code(s): K40.30 - Unilateral inguinal hernia, with obstruction, without gangrene, not specified as recurrent
[2020-09-15] MEDS ORDERED: BUPIVACAINE 0.5 % 5 MG/1 ML MPF 30ML VIAL ONE (14:56)
[2020-09-15] MEDS ORDERED: BACITRACIN INJ 50,000 UNIT VIAL ONE (14:56)
--- NOTE | 2020-09-15 14:58 | Anesthesiology Consultation ---
Date of Service September 15, 2020 Assessment & Plan Chart Review Chart Review: Acceptable Risk for Surgery (emergency procedure for incarcerated hernia, covid positive) History Surgery Operation Date: 09/15/20 15:00 Proposed Procedures p Right Open Inguinal Hernia Repair - Linwood Mcclellan MD Height/Weight Height: 6 ft 1 in Weight: 102.7 kg Allergies Allergy/AdvReac Type Severity Reaction Status Date / Time No Known Allergies Allergy Verified 09/15/20 14:26 Medications Home Medications Medication Instructions Recorded Confirmed Last Taken carvedilol 6.25 mg PO BID 07/24/18 09/15/20 09/15/20 omeprazole 20 mg PO QAM 07/24/18 09/15/20 09/15/20 furosemide [Lasix] 40 mg PO QAM 11/12/19 09/15/20 09/15/20 acetaminophen [Tylenol Extra 1,000 mg PO Q4H PRN 09/13/20 09/15/20 Unknown Strength] acyclovir 400 mg PO BID 09/13/20 09/15/20 09/15/20 betamethasone dipropionate 1 applic TOPICAL BID PRN 09/13/20 09/15/20 Unknown ciprofloxacin HCl [Cipro] 500 mg PO BID #20 tab 09/13/20 09/15/20 09/15/20 metformin 1,000 mg PO QAM 09/13/20 09/15/20 09/15/20 ondansetron HCl [Zofran] 4 mg PO Q8H PRN #15 tab 09/13/20 09/15/20 09/15/20 oxycodone 5 mg PO Q4H PRN #20 tab 09/13/20 09/15/20 09/15/20 spironolactone 150 mg PO QAM 09/13/20 09/15/20 09/15/20 Active Medications Generic Name Dose Route Start Last Admin Trade Name Freq PRN Reason Stop Dose Admin Morphine Sulfate 4 mg 09/15/20 11:55 09/15/20 12:37 Morphine Sulfate 4 Mg/Ml 1 Ml Carp\Vial IV 09/29/20 11:54 4 mg Q15M PRN Administration Pain Past Medical History Medical History (Updated 09/15/20 @ 14:53 by Margie Wilkinson PA-C) Basal cell carcinoma removal from left , left side of face Cirrhosis Esophageal varices Hemolytic anemia Inguinal hernia right side Pancreatitis Portal hypertension Pulmonary embolism bilateral lungs Thrombocytopenia Umbilical hernia Past Surgical History Surgical History History of cataract surgery bilateral eyes History of cholecystectomy History of colonoscopy History of esophagogastroduodenoscopy (EGD) with banding of esophagous due to portal hypertension History of tonsillectomy and adenoidectomy Social History Smoking Status: Never smoker Hx Alcohol Use: No Hx Substance Use: No Physical Exam Vital Signs Last Vital Signs Temp 37.3 C 09/15/20 11:30 Pulse 74 09/15/20 14:00 Resp 14 09/15/20 14:00 BP 136/74 09/15/20 14:00 Pulse Ox 95 09/15/20 14:00 Testing Laboratory Results 09/15/20 12:30 09/15/20 12:30 PT 11.7 Seconds (9.0-12.0) 09/15/20 12:30 INR 1.1 (0.9-1.1) 09/15/20 12:30 APTT 27.8 Seconds (21.0-31.0) 09/15/20 12:30 Electrocardiogram Date: 09/15/20 Findings: + NSR @ (65 incomplete RBBB)
[2020-09-15] MEDS ORDERED: fentaNYL citrate 100 MCG/2 ML VIAL ONE ×2 (15:06)
[2020-09-15] MEDS ORDERED: SUCCINYLCHOLINE 100MG/5ML SYR IV ONE (15:06)
[2020-09-15] MEDS ORDERED: DEXAMETHASONE SOD INJ 4 MG/ML VIAL ONE (15:06)
[2020-09-15] MEDS ORDERED: ROCURONIUM BROMIDE 10 MG/ML 5 ML VIAL IV ONE (15:06)
[2020-09-15] MEDS ORDERED: PHENYLEPHRINE 100MCG/ML 5ML SYR ONE (15:06)
[2020-09-15] MEDS ORDERED: ONDANSETRON INJ 2 MG/ML 2 ML VIAL ONE (15:06)
[2020-09-15] MEDS ORDERED: LIDOCAINE HCL 2% 2 ML VIAL/AMP(20MG/ML) INFIL ONE (15:06)
[2020-09-15] MEDS ORDERED: LARYING-O-JET KIT (LTA) ONE (15:06)
[2020-09-15] MEDS ORDERED: ePHEDrine sulfate 50 MG/ML SYR ONE (15:06)
[2020-09-15] MEDS ORDERED: GLYCOPYRROLATE 0.2 MG/ML VIAL ONE ×2 (15:06→15:09)
[2020-09-15] MEDS ORDERED: PROPOFOL IV EMULSION 10 MG/ML 20 ML VIAL IV ONE (15:06)
[2020-09-15] MEDS ORDERED: NEOSTIGMINE METHYLSULFATE 5 MG/5 ML SYR ONE (15:06)
[2020-09-15] MEDS ORDERED: SUGAMMADEX SODIUM 200 MG/2 ML VIAL IV ONE (15:18)
[2020-09-15] MEDS ORDERED: HYDROmorphone INJ 1 MG/ML SYRINGE IV PRN (16:34)
[2020-09-15] MEDS ORDERED: ONDANSETRON INJ 2 MG/ML 2 ML VIAL IV PRN ×2 (16:34→19:04)
[2020-09-15] MEDS ORDERED: ePHEDrine sulfate 50 MG/ML AMP IV PRN (16:34)
[2020-09-15] MEDS ORDERED: ATROPINE SULFATE 0.1 MG/ML 10ML SYR IV PRN (16:34)
[2020-09-15] MEDS ORDERED: fentaNYL citrate 100 MCG/2 ML VIAL IV PRN (16:34)
--- NOTE | 2020-09-15 17:29 | Post Operative Brief Note ---
PG Immediate Post Op with CF Date of Surgery September 15, 2020 Pre & Post Diagnosis Operation Date: 09/15/20 15:00 Pre-Op Diagnosis: ABDOMINAL PAIN Post-Op Diagnosis: ABDOMINAL PAIN I identified the patient and participated in the time-out.: Yes Procedure Operation Date: 09/15/20 15:00 Actual Procedures p Right Open Incarcerated Indirect Hernia Repair, Vassini Repair(Right) - Linwood Mcclellan MD Surgeon Linwood Mcclellan MD Silverware Supervisor nara rose Estimated Blood Loss 10 Findings Consistent with Post-Op Diagnosis Specimens Specimen Description: Cultures: 1) Urine Culture Permanent Specimens: A) Hernia Sac Drains Peacock Catheter
--- NOTE | 2020-09-15 17:44 | Operative Report ---
PG Post Operative Report Pre & Post Diagnosis Operation Date: 09/15/20 15:00 Pre-Op Diagnosis: ABDOMINAL PAIN Post-Op Diagnosis: ABDOMINAL PAIN I identified the patient and participated in the time-out.: Yes Procedure Operation Date: 09/15/20 15:00 Actual Procedures p Right Open Incarcerated Indirect Hernia Repair, Vassini Repair(Right) - Linwood Mcclellan MD The patient was brought into the operating theater general trach anesthesia Covid precautions were taken since the patient's was Covid positive the abdomen and right lower quadrant was prepped Betadine scrub and solution properly draped Peacock catheter had been placed timeout was had patient was identified systemic antibiotics was on board this point we made an incision parallel to the inguinal ligament extending approximately 8 cm or more into this almost external ring since the patient had a significant amount of incarcerated tissue down the scrotal sac went through subcutaneous tissue some edema of the abdominal wall was appreciated to his prominent veins were ligated with 2-0 silk and divided and we took our dissection all the way down to the external fascia laterally ju st towards the internal ring the patient had low platelets there we cauterized almost everything but that we did not have any excess bleeding his platelets were about 71,009 we are able to subcutaneously dissected tissue and we went beyond external ring into the scrotal sac and we could see incarcerated tissue there did seem to be probably some ascitic fluid another contents we then opened the external fascia all the way to the external ring the external ring was completely tight incarcerating tissue that I got into the scrotal sac with hemostats to elevate the fascia superiorly inferiorly then we used blunt dissection to dissect around the hernial sac which extended down to the fascia vaginalis we were able then to free that up circumferentially coming out of the scrotum we then inadvertently got into the hernial sac which we had a moderate amount of ascitic fluid suctioned that out and then is freed up the hernial sac from the cord structures all the way to the internal ring and the internal ring was tight we could only place a finger into the internal ring and this was a loop of incarcerated tissue that was coming out from the external ring into the current hernial sac seem like chronically inflamed but no acute changes we had a hard time reducing this therefore we opened up the internal ring placing a right angle underneath that then divided at this point we were easily able to reduce the probably a foot and a half a small bowel into the abdomen hemostats were elevating the hernial sac we then sutured the base of the hernial sac with 3-0 silk and 2-0 silk to make sure we had a secure and try to keep of any ascitic fluid from coming through the hernial sac was resected at this point with the cord was mobilized from the fascia down into the scrotal area the shelving p ortion of the inguinal ligament we were able to dissect out divided some cremasteric fibers and dissected the planes to the symphysis pubis conjoined tendon superiorly inguinal ligament all the way to the internal ring area the patient has what a direct defect in the area but no true hernia therefore I closed the direct area with interrupted 3-0 silk imbricating the transversalis fascia at this point I elected to use natural tissue rather than placing a Marlex mesh therefore we sutured with interrupted 2-0 silk at the symphysis pubis and all the way to the internal ring by bringing the shelving portion inguinal ligament to the transversalis fascia and at the edge of the conjoined tendon the repair appeared to be solid the internal ring the could accommodate the tip of a hemostat after we placed a 2-0 silk suture interrupted lateral to the internal ring the area appears satisfactory I did make any relaxing incision in the rectus fascia in a curvilinear fashion the area was then checked hemostasis and appears satisfactory at this point I elected to drain the scrotum with a [place] drain that we placed through a stab wound into the scrotal sac placing the [place] drain into the scrotal sac attaching skin edge with 2-0 silk once hemostasis was rechecked and appear satisfactory we closed the external fascia with interrupted 3-0 silk reconstructing the external ring and keeping the cord underneath the fascia all the way to the internal ring and the on 2-0 Vicryl was used to close subcutaneous tissue and haris for skin edges dressing was applied procedure was tolerated well by the patient estimated blood loss 10 cc addendum Margie Doss physician assistant therapy aide was present throughout the case and helped the retraction exposure and wound closure Surgeon Linwood Mcclellan MD Roofing Superintendent nara doss Estimated Blood Loss 10 Findings Consistent with Post-Op Diagnosis Specimens hernia sac Description of Procedure merda I attest to the content of the Intraoperative Record and any orders documented therein. Any exceptions are noted below.
--- NOTE | 2020-09-15 18:12 | Anesthesiology Progress Note ---
Date of Service September 15, 2020 Anesthesia Post Procedure Vital Signs Vital Signs: Temp Pulse Pulse Pulse Resp BP BP 09/15/20 18:10 36.6 C 79 16 138/72 09/15/20 18:00 87 16 129/89 09/15/20 17:50 80 16 138/73 09/15/20 17:43 36.4 C L 88 16 136/76 09/15/20 15:36 37.4 C 84 16 112/84 09/15/20 15:12 77 17 131/78 09/15/20 15:00 77 17 131/78 09/15/20 14:30 70 16 133/69 09/15/20 14:00 74 14 136/74 09/15/20 13:30 81 14 141/77 H 09/15/20 12:30 61 15 140/64 09/15/20 12:00 64 19 147/77 H 09/15/20 11:55 66 17 09/15/20 11:30 37.3 C 66 17 138/75 Pulse Ox 09/15/20 18:10 99 09/15/20 18:00 99 09/15/20 17:50 99 09/15/20 17:43 97 09/15/20 15:36 96 09/15/20 15:12 96 09/15/20 15:00 96 09/15/20 14:30 97 09/15/20 14:00 95 09/15/20 13:30 96 09/15/20 12:30 99 09/15/20 12:00 98 09/15/20 11:55 96 09/15/20 11:30 96 Transfer of Care Handoff Completed per policy Notes Mental Status: alert / awake / arousable and participated in evaluation Patient Amnestic to Procedure: Yes Nausea / Vomiting: adequately controlled Pain: adequately controlled Airway Patency, RR, SpO2: stable & adequate BP & HR: stable & adequate Hydration State: stable & adequate Anesthetic Complications: no major complications apparent and Pt Satisfied with anesthetic care
[2020-09-15] MEDS ORDERED: GLUCOSE 40% GEL 15 GM TUBE PO PRN (18:59)
[2020-09-15] MEDS ORDERED: GLUCOSE 10 TABS/TUBE PO PRN (18:59)
[2020-09-15] MEDS ORDERED: MoRPHine SULFATE 2 MG/ML CARP IV PRN (18:59)
[2020-09-15] MEDS ORDERED: DEXTROSE 50% 50 ML SYRINGE IV PRN (18:59)
[2020-09-15] MEDS ORDERED: CARBOHYDRATES FOR HYPOGLYCEMIA PO PRN (18:59)
[2020-09-15] MEDS ORDERED: GLUCAGON FOR INJ 1 MG VIAL SQ PRN (18:59)
[2020-09-15] MEDS ORDERED: PHARMACY GLYCEMIC MGMT CONSULT PRN (19:14)
--- NOTE | 2020-09-15 19:22 | Pharmacy Report ---
Glycemic Control Consultation - Date of Service September 15, 2020 - Scope Scope: Glycemic Pharmacist consulted for glycemic control and to write orders per [facility] inpatient glycemic control protocol. - Objective Weight: 102.7 kg Accuchecks BSG (last 24hrs): 09/15/20 12:30 Glucose 169 H Laboratory Data (last 24hrs): 09/15/20 12:30 Potassium 4.0 Carbon Dioxide 27 Anion Gap 6.0 Creatinine 1.00 Est Cr Clr Drug Dosing 84.1 - Recent Pertinent Medications Outpatient Anti-diabetic Regimen: * Metformin 1,000 mg PO daily * A1c = pending for 09/16/20 Risk Factors for Insulin Resistance: * Steroids: DXM 4mg IV x 1 in PACU * Infection: SBO * Recent Surgery * Diet: NPO - Assessment & Plan Assessment & Plan: ASSESSMENT: * 70yo T2DM male with unknown degree of outpatient control. No recent A1c in [facility] * Pt is maintained on oral antidiabetic agents as an outpatient * Oral agents are not recommended for inpatient use d/t drug interactions, changing PO intake, and difficulty titrating for acute hyper/hypoglycemia. ADA recommends re-initiating outpatient oral agents 1-2 days prior to discharge if/when appropriate if they were held on admission. * Will hold oral agents for admission and utilize SQ basal bolus insulin regimen which is the recommended regimen for inpatient glycemic control. * Will initiate weight based insulin dosing for insulin victor hugo patient and titrate based on BSG trends. * Will start conservatively since A1 unknown and pt NPO post-operatively PLAN FOR INPATIENT GLYCEMIC CONTROL: * Holding outpatient oral diabetes medications * Basal insulin * Lantus 0-20 units SQ BID * BSG < 120 --> 0 units * BSG 120-180 --> 10 units * BSG > 180 --> 20 units * Bolus insulin * NovoLog per scale ACHS or Q6hrs while NPO * Goal Range: Low 110 mg/dL - High 140 mg/dL * Correction Factor: 25 mg/dL/unit * Nutritional / Prandial insulin per carb ratio of 1 unit per 8 grams CHO consumed * Please note that the plan above was derived based on current level of insulin resistance and hospital stress. These recommendations are appropriate for inpatient admission only. Plan of care upon discharge will need to be reassessed to avoid potential outpatient hypo/hyperglycemia. Thank you.
[2020-09-15] MEDS: LACTATED RINGER'S 1,000 ML IV SCH (19:26)
[2020-09-15] MEDS: INSULIN ASPART 100 UNITS/ML 3 ML PEN SC SCH (20:23)
[2020-09-15] MEDS: INSULIN GLARGINE SOLOSTAR 100 UNITS/ML 3 ML PEN SC SCH (20:24)
[2020-09-15] MEDS: PIPERACILLIN/TAZOBACTAM 3.375 GM in DEXTROSE 5% 100 ML IV SCH (20:54)
[2020-09-15] MEDS: carvediloL 6.25 MG TAB PO SCH (20:55)
[2020-09-16] MEDS: INSULIN ASPART 100 UNITS/ML 3 ML PEN SC SCH ×5 (00:59→20:39)
[2020-09-16] MEDS: PIPERACILLIN/TAZOBACTAM 3.375 GM in DEXTROSE 5% 100 ML IV SCH ×3 (04:08→19:23)
[2020-09-16] MEDS: LACTATED RINGER'S 1,000 ML IV SCH ×3 (04:42→23:53)
[2020-09-16 08:07] LABS: Hematocrit (blood only) 37.2 % (42-52); Hemoglobin 12.8 g/dL (14.0-18.0); Mean Corpuscular Hemoglobin 30.2 pg (25-34); Mean Corpuscular Hgb Conc 34.4 g/dL (32-36); Mean Corpuscular Volume 87.7 fL (80-100); Mean Platelet Volume 10.5 fL (7.4-10.4); Platelet Count 65 K/uL (130-400); RDW Coefficient of Variation 13.9 % (11.5-14.5); Red Blood Count 4.24 M/uL (4.7-6.1); White Blood Count 3.05 K/uL (4.8-10.8)
[2020-09-16 08:10] LABS: INR 1.2 (0.9-1.1); Prothrombin Time 12.7 Seconds (9.0-12.0)
[2020-09-16 08:25] LABS: Estimated Average Glucose 148 mg/dl; Hemoglobin A1C 6.8 % (4.5-5.6)
[2020-09-16 08:29] LABS: Albumin Level 3.1 gm/dl (3.4-5.0); Calcium 8.2 mg/dl (8.5-10.1); Creatinine Clr Calc Pharmacy 87.5 ml/min; Est GFR (African American) 91.2; Est GFR (Non-African American) 78.7; Potassium 3.6 mmol/L (3.5-5.1)
[2020-09-16 08:42] LABS: Acanthocytes 1+; Immature Granulocytes # (auto) 0.01 K/uL (0.00-0.02); Immature Granulocytes % (auto) 0.3 %; Lymphocytes % (auto) 3.3 %; Monocytes # (auto) 0.24 K/uL (0.11-0.59); Monocytes % (auto) 7.9 %; Neutrophils % (auto) 88.5 %; Ovalocytes 1+
[2020-09-16 08:43] LABS: Albumin Globulin Ratio 1.6 (0.9-2); Bilirubin,Total 1.3 mg/dl (0.2-1); Globulin 1.9 gm/dl (2.5-4.0); Total Protein 5.1 gm/dl (6.4-8.2)
[2020-09-16] MEDS: SPIRONOLACTONE 100 MG TAB PO SCH (09:10)
[2020-09-16] MEDS: carvediloL 6.25 MG TAB PO SCH ×2 (09:10→20:41)
[2020-09-16] MEDS: INSULIN GLARGINE SOLOSTAR 100 UNITS/ML 3 ML PEN SC SCH ×2 (09:35→20:57)
[2020-09-16] MEDS ORDERED: Nursing to Pharmacy Communication SCH (13:15)
--- NOTE | 2020-09-16 13:19 | Surgery Progress Note ---
Date of Service September 16, 2020 Assessment & Plan (1) Incarcerated right inguinal hernia: Patient is POD#1 right open inguinal hernia repair WBC: 3 and patient afebrile Patient is starting to pass flatus and had a loose BM this AM Will start on clear liquids and okay to advance diet as patient tolerates Peacock to be d/c'd today Surgical incision c/d/i without signs of infection Horatio drain d/c'd today at bedside. Continue daily and prn dressing changes with dry 4x4 gauze for drainage Continue scrotal support Pain controlled on current regimen, will start po pain medication as well Possible discharge as early as tomorrow pending patient's progress Dr. Martinez covering for the weekend Admission and Anticipated Discharge Date Admission Date: September 15, 2020 Subjective Patient states he is feeling well. Denies any nausea/vomiting. Abdominal pain is improved. Has some incisional tenderness. Physical Exam Physical Exam: awake/alert Respiratory: normal respiratory effort Gastrointestinal (Abdomen): Inspection/Auscultation: + abdomen distended (mild) and + abdominal surgical incision (Groin incision c/d/i. serosang. drainage noted on dressing around bandar) Percussion/Palpation: + abdomen tender (some ttp priscilla-incisionally) and abdomen soft Results & Data ([facility]) Vital Signs (Past 12 Hours) Vital Signs Temp Pulse Resp BP Pulse Ox 09/16/20 11:47 37.2 C 66 18 110/52 L 94 09/16/20 07:51 37.1 C 70 18 115/57 L 96 09/16/20 04:09 37 C 69 18 133/66 94 PG Care Time/CCT Total # of Minutes Spent Total Time Spent with Patient: Total time spent is greater than 50% in coordination of care (as documented) at patient's floor/unit and/or counseling patient: Coding Level of Care Code None Diagnoses Incarcerated right inguinal hernia K40.30
[2020-09-16] MEDS ORDERED: oxyCODONE/ACETAMINOPHEN 5mg/325mg TAB PO PRN ×2 (14:50)
--- NOTE | 2020-09-16 15:41 | Hospitalist Progress Note ---
Date of Service September 16, 2020 Assessment & Plan (1) SBO (small bowel obstruction): Incarcerated right inguinal hernia Small bowel obstruction secondary to above --CT ABD:Interval development of a small bowel obstruction since CT of September 13, 2020. This is due to a right inguinal hernia which contains multiple small bowel loops. Transition point at the proximal aspect of the right inguinal hernia. Distal small bowel decompressed. Mild wall thickening of several small bowel loops. No pneumatosis, free air or portal venous gas. Moderate amount of ascites within the right inguinal hernia. Cirrhosis with manifestations of portal hypertension including splenomegaly, varices formation and small amount of ascites. No significant change in lower lung airspace opacities, including a 2.7 cm irregular left lower lobe nodular opacity. An infectious process is favored. However, a neoplastic process cannot be completely excluded and therefore a follow-up chest CT in 3 months to ensure resolution is recommended. S/P right open inguinal hernia repair POD #1 Pain is controlled Wound dressing as per surgery Advance diet as tolerated Appreciate surgery input Empirically on IV Zosyn Also on IV fluids Needs follow-up with surgery upon discharge COVID 19 Pneumonia CXR:Interval improvement/resolution of the pulmonary vascular congestion. Stable borderline cardiomegaly. Asymptomatic Saturating well on room air (only very transiently hypoxic post op but resolved) Currently does not meet criteria for treatment H/O cirrhosis History of GI bleed, esophageal varices Chronic thrombocytopenia Portal hypertension H/O autoimmune hemolytic anemia Continue spironolactone, Lasix, beta juan GERD Continue PPI Chronic thrombocytopenia Likely secondary to cirrhosis No active bleeding Monitor DVT Px: SCDs Re: High risk for bleeding Admission and Anticipated Discharge Date Admission Date: September 15, 2020 Subjective Patient is seen and examined at bedside Minimal pain at right inguinal surgical site Had bowel movement today, passing gas Denies chest pain, dyspnea, dizziness, nausea, abdominal pain, cough Tolerated diet today Offers no other complaints Review of Systems Review of Systems: All systems reviewed & are unremarkable except as noted in HPI & below Physical Exam Physical Exam: Physical Exam: Vitals signs as noted above General Appearance:Moderately built and nourished, no apparent distress Head: normocephalic, Atraumatic Eyes: normal inspection, EOMI Neck: supple, Trachea midline Respiratory/Chest: Normal breath sounds, CTA Cardiovascular: S1, S2, No murmur Abdomen/GI:Soft, Non tender, Bowel sounds present :+ Right Inguinal surgical site in dressing Extremities/Musculoskelatal:normal inspection, No pedal edema Neurologic/Psych:AAOX3, grossly no focal neurological deficits Skin: normal color, warm Results & Data Results & Data ([facility]) Vital Signs (Past 12 Hours) Vital Signs Temp Pulse Resp BP Pulse Ox 09/16/20 11:47 37.2 C 66 18 110/52 L 94 09/16/20 07:51 37.1 C 70 18 115/57 L 96 09/16/20 04:09 37 C 69 18 133/66 94 Laboratory Results Short CBC 09/16/20 Range/Units 07:37 WBC 3.05 L (4.8-10.8) K/uL Hgb 12.8 L D (14.0-18.0) g/dL Hct 37.2 L (42-52) % Plt Count 65 L (130-400) K/uL BMP 09/16/20 07:37 Sodium 141 Potassium 3.6 Chloride 109 H Carbon Dioxide 23 BUN 14 Creatinine 0.96 Glucose 141 H Calcium 8.2 L Liver Function 09/16/20 Range/Units 07:37 Total Bilirubin 1.3 H (0.2-1) mg/dl AST 19 (15-37) U/L ALT 20 (12-78) U/L Alkaline Phosphatase 40 L (45-117) U/L Albumin 3.1 L (3.4-5.0) gm/dl
[2020-09-16] MEDS ORDERED: INSULIN ASPART 100 UNITS/ML 3 ML PEN SC SCH (19:30)
[2020-09-16] MEDS: ACYCLOVIR 400 MG TAB PO SCH (20:41)
--- NOTE | 2020-09-16 22:10 | Electrocardiogram Report ---
Test Reason : Blood Pressure : / mmHG Vent. Rate : 065 BPM Atrial Rate : 065 BPM P-R Int : 134 ms QRS Dur : 098 ms QT Int : 462 ms P-R-T Axes : 069 000 054 degrees QTc Int : 480 ms Normal sinus rhythm Incomplete right bundle branch block Prolonged QT Abnormal ECG When compared with ECG of 13-SEP-2020 12:43, Premature supraventricular complexes are no longer Present Confirmed by Raoul Martínez ([id number]) on 09/16/2020 10:10:35 PM Referred By: REFERRED SELF Confirmed By:Raoul Martínez
[2020-09-17] MEDS: PIPERACILLIN/TAZOBACTAM 3.375 GM in DEXTROSE 5% 100 ML IV SCH ×3 (04:00→19:59)
[2020-09-17 05:55] LABS: Hematocrit (blood only) 35.2 % (42-52); Hemoglobin 12.2 g/dL (14.0-18.0); Mean Corpuscular Hemoglobin 30.5 pg (25-34); Mean Corpuscular Hgb Conc 34.7 g/dL (32-36); RDW Coefficient of Variation 13.9 % (11.5-14.5); RDW Standard Deviation 45.1 fL (36.4-46.3); White Blood Count 2.78 K/uL (4.8-10.8)
[2020-09-17 06:06] LABS: Lymphocytes # (auto) 0.19 K/uL (1.2-3.4); Lymphocytes % (auto) 6.8 %; Mean Platelet Volume 10.4 fL (7.4-10.4); Monocytes # (auto) 0.14 K/uL (0.11-0.59); Neutrophils # (auto) 2.45 K/uL (1.4-6.5); Neutrophils % (auto) 88.2 %; Platelet Count 56 K/uL (130-400)
[2020-09-17 06:13] LABS: Giant Platelets 2+; Ovalocytes 1+
[2020-09-17 06:20] LABS: BUN Creatinine Ratio 13.4 (10-20); Calcium 7.6 mg/dl (8.5-10.1); Creatinine Clr Calc Pharmacy 91.3 ml/min; Est GFR (Non-African American) 82.8; Magnesium 1.9 mg/dl (1.8-2.4); Potassium 3.4 mmol/L (3.5-5.1)
[2020-09-17] MEDS ORDERED: POTASSIUM CHLORIDE CRTAB 20 MEQ TABCR PO ONE ×2 (08:15→10:45)
[2020-09-17] MEDS: INSULIN ASPART 100 UNITS/ML 3 ML PEN SC SCH ×4 (08:26→21:14)
[2020-09-17] MEDS: ACYCLOVIR 400 MG TAB PO SCH ×2 (08:27→20:25)
[2020-09-17] MEDS: PANTOprazole 40 MG TAB PO SCH (08:27)
[2020-09-17] MEDS: SPIRONOLACTONE 100 MG TAB PO SCH (08:27)
[2020-09-17] MEDS: FUROSEMIDE 40 MG TAB PO SCH (08:27)
[2020-09-17] MEDS: INSULIN GLARGINE SOLOSTAR 100 UNITS/ML 3 ML PEN SC SCH ×2 (09:06→21:13)
[2020-09-17] MEDS: carvediloL 6.25 MG TAB PO SCH ×2 (09:54→20:23)
--- NOTE | 2020-09-17 09:54 | Pharmacy Report ---
Glycemic Control Progress Note - Date of Service September 17, 2020 - Scope Glycemic Pharmacist consulted for glycemic control to write orders per [facility] inpatient glycemic control protocol. - Objective Accuchecks BSG(last 24 hours):: 09/16/20 09/16/20 09/16/20 11:45 16:33 20:33 Glucose POC Glucose 118 H 134 H 131 H 09/17/20 09/17/20 05:30 07:59 Glucose 123 H POC Glucose 130 H HbA1c:: Hemoglobin A1c 6.8 % (4.5-5.6) H 09/16/20 07:37 - Recent Pertinent Medications The patient is currently receiving: * Basal insulin: Lantus 10 units every 12 hours * Correctional Insulin: Novolog Correction per scale ACHS Goal Range: Low 110 mg/dL - High 140 mg/dL Correction Factor: 25 mg/dL/unit * Prandial insulin: Per carb ratio of 1 unit per 8 grams CHO consumed - Outpatient Anti-Diabetic Meds metformin 1 gm PO qAM - Assessment & Plan ASSESSMENT: * See progress note from 09/15/20 for more background info, in short: * Pt receiving SQ basal bolus insulin regimen for hyperglycemia secondary to baseline DM (outpatient regimen on hold). Patient is POD 2. He is on a clear liquid diet but has not eaten much. * Patient is currently receiving an average of 21 units of insulin per day * 20 units of basal insulin * 1 units of prandial/correctional insulin * BSGs ranging 118 - 151 mg/dl over the past 24hrs * Changes needed to insulin regimen: * AM Fasting BSG = 130 mg/dl. This is in goal range for patient based on inpatient targets and co-morbidities. Therefore Basal insulin will be continued at 20 units/day. Hold parameter if BSG < 120 mg/dL. * Post-prandial BSGs are in range therefore no changes needed to CF/CR. * Total daily dose = ~20 units while NPO. Expect this to change when diet resumes. PLAN FOR INPATIENT GLYCEMIC CONTROL: * Continuing Lantus 10 units SQ BID (hold if BSG less than 120 mg/dL) * Continuing correction factor of 25 mg/dl/unit * Continuing carb ratio of 1 unit per 8 grams CHO consumed * Continuing goal range of Low 110 mg/dL - High 140 mg/dL RECOMMENDATIONS FOR DISCHARGE: * Patient's goal HbA1C is around 7% for his comorbidities. * Currently HbA1C below goal so reasonable to continue current regimen. Thank you.
--- NOTE | 2020-09-17 09:55 | XRay Report ---
XR chest 1V portable HISTORY: Hypoxia COMPARISON: Chest 09/13/2020. FINDINGS: No pneumothorax. No pleural effusions. The heart remains mildly enlarged. There is diffuse interstitial thickening with a hazy appearance to the lung bases. This remains unchanged. IMPRESSION: No change in the cardiomegaly and diffuse interstitial thickening. This may represent a mild intersti tial pulmonary edema or a low-grade pneumonitis. ACT 112: Negative or not required by law. Electronically signed by: Ted Kincaid M.D. 09/17/2020 9:54 AM
--- NOTE | 2020-09-17 09:58 | Surgery Progress Note ---
Date of Service September 17, 2020 Assessment & Plan (1) Incarcerated right inguinal hernia: pod 2 overall doing ok/as expected. low grade fever earlier. cxr pending from surgery standpoint if cxr ok could be d/c'd later today or tomorrow. drain removed. instructions reviewed verbally. Admission and Anticipated Discharge Date Admission Date: September 15, 2020 Subjective pt seen. feeling fine. pain controlled. Physical Exam Physical Exam: alert. nad abd: soft. incision clean. no sign of infection. small amount of serous drainage. Results & Data ([facility]) Vital Signs (Past 12 Hours) Vital Signs Temp Pulse Pulse Resp BP Pulse Ox 09/17/20 08:00 67 09/17/20 07:52 37.4 C 74 22 127/63 92 09/17/20 03:47 37.8 C H 76 18 130/69 92 09/17/20 00:00 69 09/16/20 23:00 38.1 C H 78 18 129/62 92 PG Care Time/CCT Total # of Minutes Spent Total Time Spent with Patient: Total time spent is greater than 50% in coordination of care (as documented) at patient's floor/unit and/or counseling patient: Coding Level of Care Code None Diagnoses Incarcerated right inguinal hernia K40.30
[2020-09-17] MEDS: LACTATED RINGER'S 1,000 ML IV SCH (11:38)
[2020-09-17] MEDS ORDERED: Nursing to Pharmacy Communication SCH (11:45)
--- NOTE | 2020-09-17 16:22 | Hospitalist Progress Note ---
Date of Service September 17, 2020 Assessment & Plan (1) SBO (small bowel obstruction): Incarcerated right inguinal hernia Small bowel obstruction secondary to above --CT ABD:Interval development of a small bowel obstruction since CT of September 13, 2020. This is due to a right inguinal hernia which contains multiple small bowel loops. Transition point at the proximal aspect of the right inguinal hernia. Distal small bowel decompressed. Mild wall thickening of several small bowel loops. No pneumatosis, free air or portal venous gas. Moderate amount of ascites within the right inguinal hernia. Cirrhosis with manifestations of portal hypertension including splenomegaly, varices formation and small amount of ascites. No significant change in lower lung airspace opacities, including a 2.7 cm irregular left lower lobe nodular opacity. An infectious process is favored. However, a neoplastic process cannot be completely excluded and therefore a follow-up chest CT in 3 months to ensure resolution is recommended. S/P right open inguinal hernia repair POD #2 Pain is controlled Wound dressing as per surgery Tolerated regular diet Appreciate surgery input Empirically on IV Zosyn for Post Op fever Also on IV fluids Needs follow-up with surgery upon discharge Obtain blood cultures Diarrhea Check stool studies if recurrence COVID 19 Pneumonia CXR:Interval improvement/resolution of the pulmonary vascular congestion. Stable borderline cardiomegaly. Asymptomatic Denies cough, SOB Saturating well on room air (only very transiently hypoxic post op but resolved) Consider COVID 19 treatment if Hypoxia persists H/O cirrhosis History of GI bleed, esophageal varices Chronic thrombocytopenia Portal hypertension H/O autoimmune hemolytic anemia Continue spironolactone, Lasix, beta juan GERD Continue PPI Chronic thrombocytopenia Likely secondary to cirrhosis No active bleeding Monitor DVT Px: SCDs Re: High risk for bleeding Admission and Anticipated Discharge Date Admission Date: September 15, 2020 Subjective Patient is seen and examined at bedside Tolerated regular diet Low grade fever overnight Pain at right inguinal surgical site is controlled Reports loose BM today Denies chest pain, dyspnea, dizziness, nausea, abdominal pain, cough Review of Systems Review of Systems: All systems reviewed & are unremarkable except as noted in HPI & below Physical Exam Physical Exam: Physical Exam: Vitals signs as noted above General Appearance:Moderately built and nourished, no apparent distress Head: normocephalic, Atraumatic Eyes: normal inspection, EOMI Neck: supple, Trachea midline Respiratory/Chest: Normal breath sounds, CTA Cardiovascular: S1, S2, No murmur Abdomen/GI:Soft, Non tender, Bowel sounds present :+ Right Inguinal surgical site in dressing Extremities/Musculoskelatal:normal inspection, No pedal edema Neurologic/Psych:AAOX3, grossly no focal neurological deficits Skin: normal color, warm Results & Data Results & Data ([facility]) Vital Signs (Past 12 Hours) Vital Signs Temp Pulse Pulse Resp BP Pulse Ox 09/17/20 15:06 38.1 C H 76 20 124/63 93 09/17/20 08:00 67 09/17/20 07:52 37.4 C 74 22 127/63 92 Laboratory Results Short CBC 09/17/20 Range/Units 05:30 WBC 2.78 L (4.8-10.8) K/uL Hgb 12.2 L (14.0-18.0) g/dL Hct 35.2 L (42-52) % Plt Count 56 L (130-400) K/uL BMP 09/17/20 05:30 Sodium 139 Potassium 3.4 L Chloride 108 H Carbon Dioxide 28 BUN 12 Creatinine 0.92 Glucose 123 H Calcium 7.6 L
[2020-09-17] MEDS ORDERED: ACETAMINOPHEN 325 MG TAB ONE (17:23)
[2020-09-17] MEDS ORDERED: ACETAMINOPHEN 325 MG TAB PO PRN (17:29)
[2020-09-17] MEDS: LACTOBACILLUS ACIDOPHILUS 1 GM PACK PO SCH (17:31)
[2020-09-17] MEDS: DOXYCYCLINE HYCLATE 100 MG CAP PO SCH (20:24)
[2020-09-18] MEDS: PIPERACILLIN/TAZOBACTAM 3.375 GM in DEXTROSE 5% 100 ML IV SCH ×2 (04:30→12:38)
[2020-09-18 06:35] LABS: Hematocrit (blood only) 35.6 % (42-52); Mean Corpuscular Hemoglobin 29.7 pg (25-34); Mean Corpuscular Hgb Conc 33.7 g/dL (32-36); Mean Corpuscular Volume 88.1 fL (80-100); RDW Coefficient of Variation 13.8 % (11.5-14.5); RDW Standard Deviation 44.9 fL (36.4-46.3); Red Blood Count 4.04 M/uL (4.7-6.1); White Blood Count 2.14 K/uL (4.8-10.8)
[2020-09-18 06:41] LABS: Platelet Count 52 K/uL (130-400)
[2020-09-18 06:56] LABS: Acanthocytes 1+; Lymphocytes # (auto) 0.15 K/uL (1.2-3.4); Monocytes # (auto) 0.12 K/uL (0.11-0.59); Monocytes % (auto) 5.6 %; Neutrophils # (auto) 1.87 K/uL (1.4-6.5); Neutrophils % (auto) 87.4 %; Ovalocytes 1+
[2020-09-18 07:12] LABS: BUN Creatinine Ratio 11.8 (10-20); Calcium 8.1 mg/dl (8.5-10.1); Creatinine Clr Calc Pharmacy 97.7 ml/min; Est GFR (African American) 100.4; Est GFR (Non-African American) 86.6; Potassium 3.2 mmol/L (3.5-5.1)
[2020-09-18] MEDS ORDERED: POTASSIUM CHLORIDE CRTAB 20 MEQ TABCR PO ONE (08:57)
[2020-09-18] MEDS ORDERED: LOPERAMIDE HCL 2 MG CAP PO PRN (08:58)
--- NOTE | 2020-09-18 09:10 | Surgery Progress Note ---
Date of Service September 18, 2020 Assessment & Plan (1) Incarcerated right inguinal hernia: doing as expected from our standpoint ok for d/c when ok with primary service. Admission and Anticipated Discharge Date Admission Date: September 15, 2020 Subjective pt seen. feeling well. no new complaints. Physical Exam Physical Exam: alert. nad abd: soft. incision c/d/i. some scrotal edema. no sign of infection. minimal incisional drainage. Results & Data ([facility]) Vital Signs (Past 12 Hours) Vital Signs Temp Pulse Pulse Resp BP Pulse Ox 09/18/20 08:00 65 09/18/20 07:41 37.6 C H 71 18 128/62 96 09/18/20 04:31 37.3 C 76 18 133/67 95 09/18/20 00:31 65 09/17/20 23:54 37.0 C 67 18 117/63 96 PG Care Time/CCT Total # of Minutes Spent Total Time Spent with Patient: Total time spent is greater than 50% in coordination of care (as documented) at patient's floor/unit and/or counseling patient: Coding Level of Care Code None Diagnoses Incarcerated right inguinal hernia K40.30
[2020-09-18] MEDS: carvediloL 6.25 MG TAB PO SCH (09:20)
[2020-09-18] MEDS: ACYCLOVIR 400 MG TAB PO SCH (09:20)
[2020-09-18] MEDS: DOXYCYCLINE HYCLATE 100 MG CAP PO SCH (09:20)
[2020-09-18] MEDS: INSULIN GLARGINE SOLOSTAR 100 UNITS/ML 3 ML PEN SC SCH (09:21)
[2020-09-18] MEDS: FUROSEMIDE 40 MG TAB PO SCH (09:21)
[2020-09-18] MEDS: PANTOprazole 40 MG TAB PO SCH (09:22)
[2020-09-18] MEDS: SPIRONOLACTONE 100 MG TAB PO SCH (09:22)
[2020-09-18] MEDS: LACTOBACILLUS ACIDOPHILUS 1 GM PACK PO SCH ×2 (09:22→12:38)
[2020-09-18] MEDS: INSULIN ASPART 100 UNITS/ML 3 ML PEN SC SCH ×2 (09:24→12:33)
--- NOTE | 2020-09-18 11:59 | Hospitalist Progress Note ---
Date of Service September 18, 2020 Assessment & Plan (1) SBO (small bowel obstruction): Incarcerated right inguinal hernia Small bowel obstruction secondary to above --CT ABD:Interval development of a small bowel obstruction since CT of September 13, 2020. This is due to a right inguinal hernia which contains multiple small bowel loops. Transition point at the proximal aspect of the right inguinal hernia. Distal small bowel decompressed. Mild wall thickening of several small bowel loops. No pneumatosis, free air or portal venous gas. Moderate amount of ascites within the right inguinal hernia. Cirrhosis with manifestations of portal hypertension including splenomegaly, varices formation and small amount of ascites. No significant change in lower lung airspace opacities, including a 2.7 cm irregular left lower lobe nodular opacity. An infectious process is favored. However, a neoplastic process cannot be completely excluded and therefore a follow-up chest CT in 3 months to ensure resolution is recommended. S/P right open inguinal hernia repair POD #3 Pain is controlled Wound dressing as per surgery Appreciate surgery input Empirically on IV Zosyn for Post Op fever>>Transitioned to Doxy Blood cultures are pending Normal Procalcitonin Also on IV fluids Needs follow-up with surgery upon discharge Diarrhea stool studies: Negative for C diff Imodium PRN COVID 19 Pneumonia CXR:Interval improvement/resolution of the pulmonary vascular congestion. Stable borderline cardiomegaly. Asymptomatic Denies cough, SOB Saturating well on room air (only very transiently hypoxic post op but resolved) Consider COVID 19 treatment if Hypoxia reoccurs H/O cirrhosis History of GI bleed, esophageal varices Chronic thrombocytopenia Portal hypertension H/O autoimmune hemolytic anemia Continue spironolactone, Lasix, beta juan GERD Continue PPI Chronic thrombocytopenia Likely secondary to cirrhosis No active bleeding Monitor DVT Px: SCDs Re: High risk for bleeding Admission and Anticipated Discharge Date Admission Date: September 15, 2020 Subjective Patient is seen and examined at bedside Minimal diarrhea today Eager to get discharged today Denies any pain at surgical site Saturating well on room air Denies chest pain, dyspnea, dizziness, nausea, abdominal pain, cough Tolerated diet Review of Systems Review of Systems: All systems reviewed & are unremarkable except as noted in HPI & below Physical Exam Physical Exam: Physical Exam: Vitals signs as noted above General Appearance:Moderately built and nourished, no apparent distress Head: normocephalic, Atraumatic Eyes: normal inspection, EOMI Neck: supple, Trachea midline Respiratory/Chest: Normal breath sounds, CTA Cardiovascular: S1, S2, No murmur Abdomen/GI:Soft, Non tender, Bowel sounds present :+ Right Inguinal surgical site in dressing Extremities/Musculoskelatal:normal inspection, No pedal edema Neurologic/Psych:AAOX3, grossly no focal neurological deficits Skin: normal color, warm Results & Data Results & Data ([facility]) Vital Signs (Past 12 Hours) Vital Signs Temp Pulse Pulse Pulse Resp BP BP 09/18/20 11:02 37.0 C 80 18 151/79 H 09/18/20 08:00 65 09/18/20 07:41 37.6 C H 71 18 128/62 09/18/20 04:31 37.3 C 76 18 133/67 09/18/20 00:31 65 Pulse Ox 09/18/20 11:02 97 09/18/20 08:00 09/18/20 07:41 96 09/18/20 04:31 95 09/18/20 00:31 Laboratory Results Short CBC 09/18/20 Range/Units 05:51 WBC 2.14 L (4.8-10.8) K/uL Hgb 12.0 L (14.0-18.0) g/dL Hct 35.6 L (42-52) % Plt Count 52 L (130-400) K/uL BMP 09/18/20 05:51 Sodium 141 Potassium 3.2 L Chloride 108 H Carbon Dioxide 26 BUN 10 Creatinine 0.86 Glucose 121 H Calcium 8.1 L
[2020-09-18] MEDS ORDERED: traMADol HCL 50 MG TABLET PO PRN (12:13)
--- NOTE | 2020-09-18 14:38 | Discharge Summary ---
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 He was here 2 days ago c similar symptoms, but the workup was negative. This time however, he was found to have a SBO sec to his inguinal hernia. He tested positive for COVID as well. He notes abd pain and distension as well as constipation. Primary Care Provider: Rhina Ibrahim MD Admission Exam Per Admitting Provider Physical Exam Gen-AAO x 3, NAD, Afebrile Head-NCAT, EOMI, PERRLA, Anicteric Sclera, No Posterior Pharyngeal Erythema Neck-Supple, No JVD, No Thyromegaly, No Masses, No LAD, No Bruits Lungs-Clear to Auscultation Bilaterally, No Rales, No Rhonchi, No Wheezing, No Crepitus Chest-No S4, +S1, +S2, No S3, No Murmurs, No Rubs, No Gallops, No Ectopy Abdomen-Soft, Bowel Sounds Present, Tender, Distended c Large ventral hernia and R Inguinal Hernia, No Hepatomegaly, No Splenomegaly, No Palpable Masses, No Rebound, No Rigidity, No Guarding Musculoskeletal-Full Range of Motion Bilaterally, No CVAT Extremities-No Cyanosis, No Clubbing, No Edema Nuero-Cranial Nerves II-XII grossly intact, Motor WNL, DTRs WNL, Strength WNL, Non Focal Psych-Normal Mood Principal Diagnosis Incarcerated right inguinal hernia Small bowel obstruction COVID 19 Infection Hypokalemia Discharge Data Allergies Allergy/AdvReac Type Severity Reaction Status Date / Time No Known Allergies Allergy Verified 09/15/20 14:26 Consultations 09/15/20 13:49 Consult General Surgery Stat ED Decision to Admit Stat Procedures Performed Operation Date: 09/15/20 15:00 Actual Procedures p Right Open Incarcerated Indirect Hernia Repair, Vassini Repair(Right) - Linwood Mcclellan MD Ordered Studies 09/15/20 11:55 CT abd pelvis wo con Stat CT ABD:Interval development of a small bowel obstruction since CT of September 13, 2020. This is due to a right inguinal hernia which contains multiple small bowel loops. Transition point at the proximal aspect of the right inguinal hernia. Distal small bowel decompressed. Mild wall thickening of several small bowel loops. No pneumatosis, free air or portal venous gas. Moderate amount of ascites within the right inguinal hernia. Cirrhosis with manifestations of portal hypertension including splenomegaly, varices formation and small amount of ascites. No significant change in lower lung airspace opacities, including a 2.7 cm irregular left lower lobe nodular opacity. An infectious process is favored. However, a neoplastic process cannot be completely excluded and therefore a follow-up chest CT in 3 months to ensure resolution is recommended. Hospital Course (1) SBO (small bowel obstruction): Incarcerated right inguinal hernia Small bowel obstruction secondary to above --CT ABD:Interval development of a small bowel obstruction since CT of September 13, 2020. This is due to a right inguinal hernia which contains multiple small bowel loops. Transition point at the proximal aspect of the right inguinal hernia. Distal small bowel decompressed. Mild wall thickening of several small bowel loops. No pneumatosis, free air or portal venous gas. Moderate amount of ascites within the right inguinal hernia. Cirrhosis with manifestations of portal hypertension including splenomegaly, varices formation and small amount of ascites. No significant change in lower lung airspace opacities, including a 2.7 cm irregular left lower lobe nodular opacity. An infectious process is favored. However, a neoplastic process cannot be completely excluded and therefore a follow-up chest CT in 3 months to ensure resolution is recommended. S/P right open inguinal hernia repair POD #3 Pain is controlled Wound dressing as per surgery Appreciate surgery input Empirically on IV Zosyn for Post Op fever>>Transitioned to Doxy Blood cultures are pending Normal Procalcitonin Also on IV fluids Needs follow-up with surgery upon discharge Diarrhea stool studies: Negative for C diff Imodium PRN COVID 19 Pneumonia CXR:Interval improvement/resolution of the pulmonary vascular congestion. Stable borderline cardiomegaly. Asymptomatic Denies cough, SOB Saturating well on room air (only very transiently hypoxic post op but resolved) Consider COVID 19 treatment if Hypoxia reoccurs H/O cirrhosis History of GI bleed, esophageal varices Chronic thrombocytopenia Portal hypertension H/O autoimmune hemolytic anemia Continue spironolactone, Lasix, beta juan GERD Continue PPI Chronic thrombocytopenia Likely secondary to cirrhosis No active bleeding Monitor DVT Px: SCDs Re: High risk for bleeding Total Time Total Time Spent Total Time Spent (In Minutes): 45 minutes Total Time Includes: Examination of the Patient, Discharge Planning, Medication Reconciliation, Communication With Other Providers and Other Discharge Plan Discharge Items Patient Disposition: Home - Self-Care Reason For Visit: SBO Discharge Diagnosis: Incarcerated right inguinal hernia Small bowel obstruction COVID 19 Infection Hypokalemia Condition on Discharge: Good Activity: Per Instructions section Lifting: No more than 10 pounds Exercise/Sports: Wait until after follow-up appointment Driving/Machine Use: do not resume driving while taking narcotics for pain Non-emergency contact: Primary Care Provider and Surgeon Call non-emergency contact if: you have any medication questions, your symptoms worsen, your pain is not controlled, your pain is worsening, your pain is unu sual for you, you have a fever, your temperature is above 101.5, your wound has increased redness, your wound has increased drainage and your wound pain has increased Follow-up/Referrals: Linwood Mcclellan MD [Surgeon] - (we will call you with an appointment date and time) Rhina Ibrahim MD [Primary Care Provider] - 09/22/20 11:05 am Diet: Carb Consistent or DM2 Addtl Attending Provider Instructions: Follow-up with your primary care physician Dr. Rhina Ibrahim on 09/22/2020 at 11:05 AM Follow-up with his surgeon Dr. Mcclellan in 1 week as adavised. Please call for appointment Your blood cultures are pending at the time of discharge. Follow-up with your physician for results. Continue doxycycline 100mg twice a day for 5 more days as prescribed Seek immediate medical attention if your symptoms reoccur or worsen Home Isolation COVID-19 Instructions The following information about Home Isolation is from the CDC Website: https://www.cdc.gov/coronavirus/2019-ncov/hcp/fkeoiyxe-sdqvrwv-uvwaxr.html Stay home except to get medical care People who are mildly ill with COVID-19 are able to isolate at home during their illness. You should restrict activities outside your home, except for getting medical care. Do not go to work, school, or public areas. Avoid using public transportation, ride-sharing, or taxis. Separate yourself from other people and animals in your home People: As much as possible, you should stay in a specific room and away from other people in your home. Also, you should use a separate bathroom, if available. Animals: You should restrict contact with pets and other animals while you are sick with COVID-19, just like you would around other people. Although there have not been reports of pets or other animals becoming sick with COVID-19, it is still recommended that people sick with COVID-19 limit contact with animals until more information is known about the virus. When possible, have another member of your household care for your animals while you are sick. If you are sick with COVID-19, avoid contact with your pet, including petting, snuggling, being kissed or licked, and sharing food. If you must care for your pet or be around animals while you are sick, wash your hands before and after you interact with pets and wear a face mask. Call ahead before visiting your doctor If you have a medical appointment, call the healthcare provider and tell them that you have or may have COVID-19. This will help the healthcare providers office take steps to keep other people from getting infected or exposed. Wear a face mask You should wear a face mask when you are around other people (e.g., sharing a room or vehicle) or pets and before you enter a healthcare providers office. If you are not able to wear a face mask (for example, because it causes trouble breathing), then people who live with you should not stay in the same room with you, or they should wear a face mask if they enter your room. Cover your coughs and sneezes Cover your mouth and nose with a tissue when you cough or sneeze. Throw used tissues in a lined trash can. Immediately wash your hands with soap and water for at least 20 seconds or, if soap and water are not available, clean your hands with an alcohol-based hand power plant manager that contains at least 60% alcohol. Clean your hands often Wash your hands often with soap and water for at least 20 seconds, especially after blowing your nose, coughing, or sneezing; going to the bathroom; and be fore eating or preparing food. If soap and water are not readily available, use an alcohol-based hand power plant manager with at least 60% alcohol, covering all surfaces of your hands and rubbing them together until they feel dry. Soap and water are the best option if hands are visibly dirty. Avoid touching your eyes, nose, and mouth with unwashed hands. Avoid sharing personal household items You should not share dishes, drinking glasses, cups, eating utensils, towels, or bedding with other people or pets in your home. After using these items, they should be washed thoroughly with soap and water. Clean all high-touch surfaces everyday High touch surfaces include counters, tabletops, doorknobs, bathroom fixtures, toilets, phones, keyboards, tablets, and bedside tables. Also, clean any surfaces that may have blood, stool, or body fluids on them. Use a household cleaning spray or wipe, according to the label instructions. Labels contain instructions for safe and effective use of the cleaning product including precautions you should take when applying the product, such as wearing gloves and making sure you have good ventilation during use of the product. Monitor your symptoms Seek prompt medical attention if your illness is worsening (e.g., difficulty breathing).Beforeseeking care, call your healthcare provider and tell them that you have, or are being evaluated for, COVID-19. Put on a face mask before you enter the facility. These steps will help the healthcare providers office t o keep other people in the office or waiting room from getting infected or exposed. Ask your healthcare provider to call the local or state health department. Persons who are placed under active monitoring or facilitated self- monitoring should follow instructions provided by their local health department or occupational health professionals, as appropriate. When working with your local health department check their available hours. If you have a medical emergency and need to call 911, notify the dispatch personnel that you have, or are being evaluated for COVID-19. If possible, put on a face mask before emergency medical services arrive. Discontinuing home isolation Patients with confirmed COVID-19 should remain under home isolation precautions until the risk of secondary transmission to others is thought to be low. The decision to discontinue home isolation precautions should be made on a ejmu-[id number] basis, in consultation with healthcare providers and state and local health departments. Coronavirus disease 2019 (COVID-19) is a virus that causes a respiratory illness. It is caused by a coronavirus called 2019 novel coronavirus (2019- nCoV). There are many types of coronavirus. Coronaviruses are a very common cause of bronchitis. They may sometimes cause lung infection(pneumonia). Symptoms can range from mild to severe respira tory illness. These viruses are also foundin some animals. COVID-19 was first found in people in [facility], in late 2019. In 2020, several cases of COVID- 19 have been confirmed in the [place] Public health officials are working to find the source. How the virus spreads is not yet fully known. It may be spread through droplets of fluid that a person coughs or sneezes into the air. It may be spread if you touch a surface with virus on it, such as a handle or object, and then touch your mouth. What are the symptoms of COVID-19? Some people have no symptoms or mild symptoms. Symptoms may appear 2 to 14 days after contact with the virus. Symptoms can include: Fever Coughing Trouble breathing What are possible complications from COVID-19? In many cases, this virus can cause infection (pneumonia) in both lungs. In some cases, this can cause . How is COVID-19 diagnosed? Your healthcare provider will ask about your symptoms. He or she will also ask about your recent travel and contact with sick people. Testing for the virus is only done through the CDC. If yourhealthcare provider thinks you may have COVID- 19, he or she will work with your local health department and the CDC on testing. Follow all instructions from your healthcare provider. COVID-19 is diagnosed by: Nasal and throat swab. A cotton-tipped swab is wiped inside your nose or throat. This is done to check for viruses in your nasal mucus. Sputum culture. A small sample of mucus coughed from your lungs (sputum) is collected if you have a cough. It is checked for the virus. How is COVID-19 treated? There is currently no medicine to treat the virus. Treatment is done to help your body while it fights the virus. This is known as supportive care. Suppo rtive care may include: Pain medicine. These include acetaminophen and ibuprofen. They are used to help ease pain and reduce fever. Bed rest. This helps your body fight the illness. For severe illness, you may need to stay in the hospital. Care during severe illness may include: IV (intravenous) fluids.These are given through a vein to help keep your body hydrated. Oxygen. Supplemental oxygen or ventilation with a breathing machine (ventilator) may be given. This is done to keep enough oxygen in your body. Are you at risk for COVID-19? If youve been to a place where people have been sick with this virus, you are at risk for infection. You are at risk if you: Recently traveled to an affected area Had contact with a sick person who recently traveled to this area Had contact with a person who was diagnosed with COVID-19 How can COVID-19 be prevented? There is no vaccine yet. The best prevention is to not have contact with the virus. The CDC advises that people should not travel to areas where there are COVID-19 outbreaks right now for any reason that is not urgent. To help prevent spreading the infection, wash your hands often, or use an a lcohol-basedhand power plant manager. If you are in an area with COVID-19: Wash your hands often. Or use an alcohol-based hand power plant manager often. Only touch your eyes, nose, or mouth with clean hands. Dont have contact with people who are sick. Follow local instructions about being in public. For example, you may be told to not use public transport for a period of time. Stay away from markets that have live or animals. Wash your hands after touching any animals. Don't touch animals that may be sick. Dont share eating or drinking tools with sick people. Dont kiss someone who is sick. Clean surfaces often with disinfectant. If you were in an area with COVID-19 in the last 14 days: Call your healthcare provider. He or she can talk with local health staff to see what action may be needed. Follow all instructions from your provider. Take your temperature every morning and evening for at least 14 days. This is to check for fever. Keep a record of the readings. Keep watch for symptoms of the virus. Tell your provider right away if you have symptoms. If you were in an area with COVID-19 and have a fever or other symptoms: Dont panic. Keep in mind that other illnesses can cause similar symptoms. Stay away from work, school, and public places. Limit physical contact with family members. Don't kiss anyone or share eating or drinking utensils. Clean surfaces you touch with disinfectant. This is to help prevent the virus from spreading. Call your healthcare provider. Explain that you have been exposed to COVID-19 and have symptoms. Do this before going to any hospital. Wait for instructions. Keep in mind that healthcare staff may wear protective equipment such as masks, gowns, gloves, and eye protection. You may be put in a separate room. This is to prevent the possible virus from spreading. Tell the healthcare staff about recent travel. This includes local travel on public transport. Staff may need to find other people you have been in contact with. Follow all instructions the healthcare staff give you. If you have been diagnosed with COVID-19 Follow all instructions from your healthcare provider. Dont leave your home, except to get medical care. Call your healthcare providers office before going. They can prepare and give you instructions. This will help prevent the virus from spreading. Dont go to work, school, or public areas. Dont use public transport or taxis. Stay away from other people in your home. Have them wear face masks around you. Dont share household items or food. Wear a face mask if you can. This includes at home or in a medical facility. Cover your face with a tissue when you cough or sneeze. Throw the tissue away. Wash your hands. Wash your hands often. Caregivers should: Follow all instructions from healthcare staff. Wear a face mask and protective clothing as advised. Wash hands often. Keep track of the sick persons symptoms. Clean surfaces, fabrics, and laundry thoroughly. Keep other people away from the sick person. When to call your healthcare provider Call your healthcare provider: If youve recently traveled and have symptoms If you have been diagnosed with COVID-19 and your symptoms are worse To learn more To find out more about COVID-19, visit the CDC website at www.cdc.gov/coronavirus/2019-ncov/index.html. [employer]. [address] [place] [address]. All rights reserved. This information is not intended as a substitute for professional medical care. Always follow your healthcare professional's instructions. This information has been adapted from [employer] Provider Instructions: You have surgical haris in place that will be removed at one of your follow up appointments. You may ice your groin on and off alternating every 20minutes as needed to help with pain/swelling management. You may redress you surgical wounds daily and as needed with dry 4x4 gauze and medical tape. You may continue to take the narcotic, Oxycodone, as recently prescribed to you if needed for post operative pain. Pending Studies at Discharge: Yes Studies:: Blood Cultures Stand-Alone Forms: [facility], Smoking Cessation Medications and DC Order Prescriptions: New doxycycline hyclate 100 mg Capsule 100 mg PO BID Qty: 11 RF: 0 loperamide 2 mg Capsule 2 mg PO PRN PRNQty: 0 RF: 0 potassium chloride [Klor-Con M20] 20 mEq Tablet,Er Particles/Crystals 20 meq PO DAILY Qty: 3 RF: 0 Continued furosemide [Lasix] 40 mg Tablet 40 mg PO QAM RF: 0 acyclovir 400 mg tablet 400 mg PO BID RF: 0 acetaminophen [Tylenol Extra Strength] 500 mg Tablet 1,000 mg PO Q4H PRN (Reason: Pain) RF: 0 betamethasone dipropionate 0.05 % Cream 1 applic TOPICAL BID PRN (Reason: Rash) RF: 0 metformin 500 mg tablet extended release 24 hr 1,000 mg PO QAM RF: 0 spironolactone 50 mg tablet 150 mg PO QAM RF: 0 oxycodone 5 mg tablet 5 mg PO Q4H PRN (Reason: pain) Qty: 20 RF: 0 ondansetron HCl [Zofran] 4 mg tablet 4 mg PO Q8H PRN (Reason: nausea and vomiting) Qty: 15 RF: 0 carvedilol 6.25 mg tablet 6.25 mg PO BID RF: 0 omeprazole 20 mg capsule,delayed release(DR/EC) 20 mg PO QAM RF: 0 Discharge Orders: Discharge Order (Routine); Ordered 09/18/20 Ordered By: Pierre Vega/Other Patient Handouts: High Blood Sugar (Hyperglycemia), Managing Type 2 Diabetes, A1C Admission Data Admit Date/Time: 09/15/20 17:55 Attending Provider: Pierre Pathak Admit Provider: Ty Negrete Primary Care Provider: Rhina Ibrahim Other Providers: Linwood Mcclellan ; Ty Negrete
[2020-09-19] MEDS ORDERED: POTASSIUM CHLORIDE CRTAB 20 MEQ TABCR PO SCH (09:00)
== END 2020-09-18 15:15 | disposition home or self-care (01) | DRG 350 ==
LOC: ED 11:29 → 2S 15:30 → OR 15:30 → 2S 17:55 → SUATTDRO 17:55

== ENCOUNTER 2020-09-18 20:13 | Inpatient (IN) ==
--- NOTE | 2020-09-18 20:41 | Emergency Department Note ---
Impression & Plan Fever postop, COVID-19 virus infection ED Provider Note NAME: JAYCOB URIARTE AGE: 70 SEX: M : 1950 ARRIVES VIA: Walk-In INFORMANT: Patient, ED PROVIDER(S): Cornelio Mars DO CHIEF COMPLAINT: Fever HPI: The patient is a 70-year-old male who presented to the emergency department for an evaluation of fever. The patient is 3 days status post right inguinal hernia repair. The patient is a history of nonalcoholic cirrhosis. I did care for this patient earlier in the course of his disease. He was initially seen in our facility for abdominal pain. He had a complete work-up including CT the abdomen and pelvis. This did not reveal cause for the patient's symptoms. He returned 2 days later with worsening symptoms including nausea vomiting and abdominal pain. At that time he was diagnosed with incarcerated right inguinal hernia causing a bowel obstruction. The patient was treated surgically. He was also diagnosed with COVID-19. The patient states that he was discharged to home today. He was prescribed an antibiotic however he was unable to take this antibiotic at this time because the pharmacy was closed. He started noticing chills and his significant other took his temperature this evening. He repo rtedly had a fever of 102 degrees. He took Tylenol at 7:30 PM. The patient states that he is also having some dyspnea on exertion. He notices a dry cough. He denies having any dysuria or frequency. He does continue to have some abdominal pain which is diffuse. He states that the surgical site is clear and not draining. According to the patient his significant other checked his pulse ox and it was in the 80s. ROS: See above HPI for pertinent positives & negatives. A total of 10 systems reviewed and were otherwise negative. PAST MEDICAL HISTORY: See Below PAST SURGICAL HISTORY: See Below FAMILY HISTORY: See Below SOCIAL HISTORY: See Below HOME MEDICATIONS: See Below ALLERGIES: See Below VITALS: See Below PHYSICAL EXAMINATION: GENERAL: Patient is awake alert in no acute distress patient is resting comfortably and showing no signs of anxiety EYES: The conjunctivae are clear. The pupils are round and reactive. EARS, NOSE, MOUTH AND THROAT: The nose is without any evidence of any deformity. NECK: The neck is nontender and supple. RESPIRATORY: Normal respiratory effort is noted there is no evidence of wheezing rhonchi or rales CARDIOVASCULAR: Regular rate and rhythm noted there no murmurs rubs or gallops normal S1 normal S2. GASTROINTESTINAL: The abdomen is moderately distended. There is diffuse tenderness to palpation but no guarding rigidity. Postoperative site in the right inguinal region appears well. There is no drainage dehiscence or erythema. Skin haris are in place. There is tenderness over this area. MUSCULOSKELETAL/EXTREMITIES: There is no evidence of gross deformity full range of motion is noted in the hips and shoulders. SKIN: There is no obvious evidence of any rash. Trace pedal edema was noted bilaterally. NEUROLOGIC: Patient is awake alert and oriented x3. MEDICAL DECISION MAKING: The patient is a 70-year-old male who is 3 days status post inguinal hernia repair for small bowel obstruction due to incarcerated right inguinal hernia. The patient was also diagnosed with COVID-19 at that time. He presents emergency department tonight because of fever. The patient was noted to have a fever of 102 degrees by his significant other. He was also noted to have a low pulse ox. The patient was treated with IV fluids and IV antibiotics. He was reevaluated multiple times. I discussed the patient's laboratory and radiographic studies with him. I also discussed his case with the on-call general surgeon. The patient has had 2 previous CAT scans this week before his diagnosis was made. For this reason I do not feel the patient should have another CAT scan at this time. His abdominal exam is not consistent with a surgical abdomen. Surgical site appears clear and well-healing. The patient is also Covid positive and this could be the cause of his symptoms. I discussed his case with the on-call [facility] hospitalist. They have agreed to evaluate the patient in the emergency department for further management and disposition. Triage Nursing notes reviewed. Prior medical records reviewed Vital Signs: reviewed and remarkable for low blood pressure, fever Differential diagnosis: Differential diagnosis in this patient could include COVID-19 pneumonia, community-acquired pneumonia, hospital-acquired pneumonia, urinary tract infection, postoperative infection, injury to adjacent structure, bleeding, and other differential diagnoses were considered. ER treatment provided: See below Diagnostics interpreted by me: ECG: EKG was obtained in the emergency department. My interpretation is normal sinus rhythm at 86 bpm. There is no ectopy. Incomplete right bundle branch block pattern was noted. This was compared to a tracing from September 152020. No significant changes were noted. Cardiac Monitoring: An order was placed for continuous cardiac monitoring. The monitor shows a rate of 80 bpm with sinus rhythm. Laboratory studies: As stated above and show below. Imaging studies: See below Consultation(s): 2330: I discussed this case with Dr. Martinez who is on-call for general surgery. 2345: I discussed this case with Dr. Velasquez. Past Med/Surg History Medical History Basal cell carcinoma removal from left , left side of face Cirrhosis Esophageal varices Hemolytic anemia Inguinal hernia right side Pancreatitis Portal hypertension Pulmonary embolism bilateral lungs Thrombocytopenia Umbilical hernia Surgical History History of cataract surgery bilateral eyes History of cholecystectomy History of colonoscopy History of esophagogastroduodenoscopy (EGD) with banding of esophagous due to portal hypertension History of tonsillectomy and adenoidectomy Social History Smoking Status: Never smoker Hx Alcohol Use: No Hx Substance Use: No Preferred Language: Macedonian Communication Ability: Effective Vp [employer] Required: No Beliefs That Will Affect Care: None marital status: Current Living Situation: Spouse Feels Safe at Home: Yes Safety Concerns: Feels Safe At This Time Assistive Devices: Glasses Allergies Allergies Allergy/AdvReac Type Severity Reaction Status Date / Time No Known Allergies Allergy Verified 09/18/20 21:21 Home Meds Home Medications Medication Instructions Recorded Confirmed carvedilol 6.25 mg PO BID 07/24/18 09/18/20 omeprazole 20 mg PO QAM 07/24/18 09/18/20 furosemide [Lasix] 40 mg PO QAM 11/12/19 09/18/20 acetaminophen [Tylenol Extra 1,000 mg PO Q4H PRN 09/13/20 09/18/20 Strength] acyclovir 400 mg PO BID 09/13/20 09/18/20 betamethasone dipropionate 1 applic TOPICAL BID PRN 09/13/20 09/18/20 metformin 1,000 mg PO QAM 09/13/20 09/18/20 spironolactone 150 mg PO QAM 09/13/20 09/18/20 loperamide 2 mg PO UD PRN 09/18/20 09/18/20 Previous Rx's Medication Instructions Recorded ondansetron HCl [Zofran] 4 mg PO Q8H PRN #15 tab 09/13/20 oxycodone 5 mg PO Q4H PRN #20 tab 09/13/20 doxycycline hyclate 100 mg PO BID #11 cap 09/18/20 potassium chloride [Klor-Con M20] 20 meq PO DAILY #3 tab 09/18/20 Results & Data (ED) Vital Signs Vital Signs - 24 hr 09/18/20 20:21 09/18/20 20:24 09/18/20 20:28 Temperature 37.7 C H Temperature Source Oral Pulse Rate 82 80 83 Pulse Rate from SpO2 Sensor 83 83 Respiratory Rate 20 24 23 Respiratory Effort / Characteristics Non-Labored Spontaneous Respiratory Depth Normal Blood Pressure 129/65 129/65 Blood Pressure Mean 86 73 Blood Pressure Position Lying Pulse Oximetry 94 94 93 Oxygen Delivery Method Room Air Sepsis Recent Fever Within 48 Hours Yes Sepsis New/Unexplained Change in Mental Status No Sepsis Action Taken by Nursing No Action Required 09/18/20 20:30 09/18/20 20:40 09/18/20 20:50 Temperature Temperature Source Pulse Rate 92 H 81 73 Pulse Rate from SpO2 Sensor 92 H Respiratory Rate 14 21 23 Respiratory Effort / Characteristics Respiratory Depth Blood Pressure 116/52 L Blood Pressure Mean 62 Blood Pressure Position Pulse Oximetry 94 Oxygen Delivery Method Sepsis Recent Fever Within 48 Hours Sepsis New/Unexplained Change in Mental Status Sepsis Action Taken by Nursing 09/18/20 20:53 09/18/20 21:00 09/18/20 21:09 Temperature Temperature Source Pulse Rate 76 72 Pulse Rate from SpO2 Sensor 76 72 Respiratory Rate 19 22 Respiratory Effort / Characteristics Respiratory Depth Blood Pressure 108/53 L Blood Pressure Mean 66 Blood Pressure Position Pulse Oximetry 94 95 93 Oxygen Delivery Method Room Air Sepsis Recent Fever Within 48 Hours Sepsis New/Unexplained Change in Mental Status Sepsis Action Taken by Nursing 09/18/20 21:10 09/18/20 21:20 09/18/20 21:30 Temperature Temperature Source Pulse Rate 74 69 69 Pulse Rate from SpO2 Sensor 73 70 69 Respiratory Rate 21 22 23 Respiratory Effort / Characteristics Respiratory Depth Blood Pressure 114/56 L Blood Pressure Mean 67 Blood Pressure Position Pulse Oximetry 94 95 95 Oxygen Delivery Method Sepsis Recent Fever Within 48 Hours Sepsis New/Unexplained Change in Mental Status Sepsis Action Taken by Nursing 09/18/20 21:40 09/18/20 22:00 09/18/20 22:30 Temperature Temperature Source Pulse Rate 73 65 71 Pulse Rate from SpO2 Sensor 72 67 70 Respiratory Rate 25 H 22 17 Respiratory Effort / Characteristics Respiratory Depth Blood Pressure 113/55 L 100/49 L Blood Pressure Mean 70 56 Blood Pressure Position Pulse Oximetry 93 92 95 Oxygen Delivery Method Sepsis Recent Fever Within 48 Hours Sepsis New/Unexplained Change in Mental Status Sepsis Action Taken by Nursing 09/18/20 23:00 09/18/20 23:30 09/19/20 00:00 Temperature Temperature Source Pulse Rate 63 73 64 Pulse Rate from SpO2 Sensor 63 72 Respiratory Rate 19 18 19 Respiratory Effort / Characteristics Respiratory Depth Blood Pressure 101/53 L 101/62 103/52 L Blood Pressure Mean 65 75 65 Blood Pressure Position Pulse Oximetry 93 95 Oxygen Delivery Method Sepsis Recent Fever Within 48 Hours Sepsis New/Unexplained Change in Mental Status Sepsis Action Taken by Nursing 09/19/20 00:30 09/19/20 01:00 09/19/20 01:18 Temperature Temperature Source Pulse Rate 64 65 Pulse Rate from SpO2 Sensor Respiratory Rate 14 18 Respiratory Effort / Characteristics Respiratory Depth Blood Pressure 115/57 L 107/53 L Blood Pressure Mean 67 66 Blood Pressure Position Pulse Oximetry Oxygen Delivery Method Room Air Sepsis Recent Fever Within 48 Hours Sepsis New/Unexplained Change in Mental Status Sepsis Action Taken by Long Term Medications Current Medication List: was personally reviewed by me Laboratory Data Attestation: I reviewed the patient's lab results. Result diagrams: 09/18/20 20:40 09/18/20 20:40 Lab Results 09/18/20 09/18/20 09/18/20 Range/Units 20:40 20:40 20:40 WBC 2.60 L (4.8-10.8) K/uL RBC 4.04 L (4.7-6.1) M/uL Hgb 12.5 L (14.0-18.0) g/dL Hct 34.9 L (42-52) % MCV 86.4 (80-100) fL MCH 30.9 (25-34) pg MCHC 35.8 (32-36) g/dL RDW Std Deviation 43.9 (36.4-46.3) fL RDW Coeff of Bella 13.8 (11.5-14.5) % Plt Count 61 L (130-400) K/uL MPV 10.7 H (7.4-10.4) fL Immature Gran % (Auto) 0.0 % Neut % (Auto) 87.6 % Lymph % (Auto) 10.8 % [place] % (Auto) 1.2 % Eos % (Auto) 0.4 % Baso % (Auto) 0.0 % Neut # (Auto) 2.28 (1.4-6.5) K/uL Lymph # (Auto) 0.28 L (1.2-3.4) K/uL [place] # (Auto) 0.03 L (0.11-0.59) K/uL Eos # (Auto) 0.01 (0-0.5) K/uL Baso # (Auto) 0.00 (0-0.2) K/uL Immature Gran # (Auto) 0.00 (0.00-0.02) K/uL Giant Platelets 1+ Ovalocytes 1+ Acanthocytes (Spur) 1+ ESR 11 (0-14) mm/hr PT 13.0 H (9.0-12.0) Seconds INR 1.2 H (0.9-1.1) APTT 30.4 (21.0-31.0) Seconds PTT Ratio 1.1 Sodium (136-145) mmol/L Potassium (3.5-5.1) mmol/L Chloride (98-107) mmol/L Carbon Dioxide (21-32) mmol/L Anion Gap (3-11) BUN (7-18) mg/dl Creatinine (0.6-1.4) mg/dl Est Cr Clr Drug Dosing ml/min Est GFR ( Amer) Est GFR (Non-Af Amer) BUN/Creatinine Ratio (10-20) Glucose (70-99) mg/dl Lactate (0.4-2.0) mmol/L Calcium (8.5-10.1) mg/dl Magnesium (1.8-2.4) mg/dl Total Bilirubin (0.2-1) mg/dl AST (15-37) U/L ALT (12-78) U/L Alkaline Phosphatase (45-117) U/L Troponin I (0-0.045) ng/ml C-Reactive Protein (0-0.29) mg/dl NT-Pro-B Natriuret Pep (0-900) pg/ml Total Protein (6.4-8.2) gm/dl Albumin (3.4-5.0) gm/dl Globulin (2.5-4.0) gm/dl Albumin/Globulin Ratio (0.9-2) Procalcitonin (0-0.5) ng/ml Urine Color Urine Appearance (Clear) Urine pH (4.5-7.5) Ur Specific [place] (1.000-1.030) Urine Protein (Negative) Urine Glucose (UA) (Negative) Urine Ketones (Negative) Urine Blood (Negative) Urine Nitrite (Negative) Urine Bilirubin (Negative) Urine Urobilinogen (Negative) Ur Leukocyte Esterase (Negative) Urine WBC (Auto) (0-5) /hpf Urine RBC (Auto) (0-4) /hpf U Hyaline Cast (Auto) (0-5) /lpf U Epithel Cells (Auto) (0-5) /lpf Urine Bacteria (Auto) (Negative) 09/18/20 09/18/20 09/18/20 Range/Units 20:40 20:40 20:40 WBC (4.8-10.8) K/uL RBC (4.7-6.1) M/uL Hgb (14.0-18.0) g/dL Hct (42-52) % MCV (80-100) fL MCH (25-34) pg MCHC (32-36) g/dL RDW Std Deviation (36.4-46.3) fL RDW Coeff of Bella (11.5-14.5) % Plt Count (130-400) K/uL MPV (7.4-10.4) fL Immature Gran % (Auto) % Neut % (Auto) % Lymph % (Auto) % [place] % (Auto) % Eos % (Auto) % Baso % (Auto) % Neut # (Auto) (1.4-6.5) K/uL Lymph # (Auto) (1.2-3.4) K/uL [place] # (Auto) (0.11-0.59) K/uL Eos # (Auto) (0-0.5) K/uL Baso # (Auto) (0-0.2) K/uL Immature Gran # (Auto) (0.00-0.02) K/uL Giant Platelets Ovalocytes Acanthocytes (Spur) ESR (0-14) mm/hr PT (9.0-12.0) Seconds INR (0.9-1.1) APTT (21.0-31.0) Seconds PTT Ratio Sodium 140 (136-145) mmol/L Potassium 3.3 L (3.5-5.1) mmol/L Chloride 109 H (98-107) mmol/L Carbon Dioxide 22 (21-32) mmol/L Anion Gap 9.0 (3-11) BUN 12 (7-18) mg/dl Creatinine 0.97 (0.6-1.4) mg/dl Est Cr Clr Drug Dosing 87.8 ml/min Est GFR ( Amer) 90.0 Est GFR (Non-Af Amer) 77.7 BUN/Creatinine Ratio 12.3 (10-20) Glucose 155 H (70-99) mg/dl Lactate 1.4 (0.4-2.0) mmol/L Calcium 7.4 L (8.5-10.1) mg/dl Magnesium 1.6 L (1.8-2.4) mg/dl Total Bilirubin 1.0 (0.2-1) mg/dl AST 19 (15-37) U/L ALT 18 (12-78) U/L Alkaline Phosphatase 44 L (45-117) U/L Troponin I < 0.015 (0-0.045) ng/ml C-Reactive Protein 5.91 H (0-0.29) mg/dl NT-Pro-B Natriuret Pep 497 (0-900) pg/ml Total Protein 5.2 L (6.4-8.2) gm/dl Albumin 2.8 L (3.4-5.0) gm/dl Globulin 2.4 L (2.5-4.0) gm/dl Albumin/Globulin Ratio 1.2 (0.9-2) Procalcitonin < 0.05 (0-0.5) ng/ml Urine Color Urine Appearance (Clear) Urine pH (4.5-7.5) Ur Specific [place] (1.000-1.030) Urine Protein (Negative) Urine Glucose (UA) (Negative) Urine Ketones (Negative) Urine Blood (Negative) Urine Nitrite (Negative) Urine Bilirubin (Negative) Urine Urobilinogen (Negative) Ur Leukocyte Esterase (Negative) Urine WBC (Auto) (0-5) /hpf Urine RBC (Auto) (0-4) /hpf U Hyaline Cast (Auto) (0-5) /lpf U Epithel Cells (Auto) (0-5) /lpf Urine Bacteria (Auto) (Negative) 09/18/20 Range/Units 22:22 WBC (4.8-10.8) K/uL RBC (4.7-6.1) M/uL Hgb (14.0-18.0) g/dL Hct (42-52) % MCV (80-100) fL MCH (25-34) pg MCHC (32-36) g/dL RDW Std Deviation (36.4-46.3) fL RDW Coeff of Bella (11.5-14.5) % Plt Count (130-400) K/uL MPV (7.4-10.4) fL Immature Gran % (Auto) % Neut % (Auto) % Lymph % (Auto) % [place] % (Auto) % Eos % (Auto) % Baso % (Auto) % Neut # (Auto) (1.4-6.5) K/uL Lymph # (Auto) (1.2-3.4) K/uL [place] # (Auto) (0.11-0.59) K/uL Eos # (Auto) (0-0.5) K/uL Baso # (Auto) (0-0.2) K/uL Immature Gran # (Auto) (0.00-0.02) K/uL Giant Platelets Ovalocytes Acanthocytes (Spur) ESR (0-14) mm/hr PT (9.0-12.0) Seconds INR (0.9-1.1) APTT (21.0-31.0) Seconds PTT Ratio Sodium (136-145) mmol/L Potassium (3.5-5.1) mmol/L Chloride (98-107) mmol/L Carbon Dioxide (21-32) mmol/L Anion Gap (3-11) BUN (7-18) mg/dl Creatinine (0.6-1.4) mg/dl Est Cr Clr Drug Dosing ml/min Est GFR ( Amer) Est GFR (Non-Af Amer) BUN/Creatinine Ratio (10-20) Glucose (70-99) mg/dl Lactate (0.4-2.0) mmol/L Calcium (8.5-10.1) mg/dl Magnesium (1.8-2.4) mg/dl Total Bilirubin (0.2-1) mg/dl AST (15-37) U/L ALT (12-78) U/L Alkaline Phosphatase (45-117) U/L Troponin I (0-0.045) ng/ml C-Reactive Protein (0-0.29) mg/dl NT-Pro-B Natriuret Pep (0-900) pg/ml Total Protein (6.4-8.2) gm/dl Albumin (3.4-5.0) gm/dl Globulin (2.5-4.0) gm/dl Albumin/Globulin Ratio (0.9-2) Procalcitonin (0-0.5) ng/ml Urine Color Dark Yellow Urine Appearance Clear (Clear) Urine pH 5.5 (4.5-7.5) Ur Specific [place] 1.025 (1.000-1.030) Urine Protein 1+ H (Negative) Urine Glucose (UA) Negative (Negative) Urine Ketones Trace H (Negative) Urine Blood Negative (Negative) Urine Nitrite Negative (Negative) Urine Bilirubin 1+ H (Negative) Urine Urobilinogen Negative (Negative) Ur Leukocyte Esterase Negative (Negative) Urine WBC (Auto) 1-5 (0-5) /hpf Urine RBC (Auto) 0-4 (0-4) /hpf U Hyaline Cast (Auto) 1-5 (0-5) /lpf U Epithel Cells (Auto) 10-20 H (0-5) /lpf Urine Bacteria (Auto) Negative (Negative) Administered Medications Discontinued Medications Acetaminophen (Acetaminophen 325 Mg Tab) 650 mg PO NOW STA Stop: 09/18/20 23:40 Last Admin: 09/18/20 23:48 Dose: Not Given Documented by: [id number] Piperacillin Sod/Tazobactam Sod (Zosyn) 4.5 gm in 120 mls @ 240 mls/hr IV NOW ONE Stop: 09/19/20 00:00 Last Infusion: 09/19/20 00:36 Dose: 0 mls/hr Documented by: [id number] Admin: 09/18/20 23:44 Dose: 240 mls/hr Documented by: [id number] Sodium Chloride (Nss 1000ml) 1,000 mls @ 999 mls/hr IV .Q1H1M ONE Stop: 09/19/20 00:31 Last Infusion: 09/19/20 00:36 Dose: 0 mls/hr Documented by: [id number] Admin: 09/18/20 23:49 Dose: 999 mls/hr Documented by: [id number] Potassium Chloride (Potassium Chloride Crtab 20 Meq Tabcr) 40 meq PO NOW STA Stop: 09/18/20 23:42 Last Admin: 09/18/20 23:46 Dose: 40 meq Documented by: [id number] Imaging Data Attestation: I personally reviewed and interpreted this imaging study as follows: My Impression: KUB was obtained in the emergency department. My interpretation is nonspecific bowel gas pattern noted. There was no signs of obstruction. There is no free air, no acute disease. 1 view of the chest was obtained in the emergency department. My interpretation is cardiomegaly with nonspecific haziness noted in the periphery. Left greater than right. This was compared to a chest x-ray from September 17, 2020. Changes appeared increased compared to the previous chest x-ray. Blood Pressure Blood Pressure Findings: Low blood pressure Discharge Plan Visit Data Chief Complaint: Fever Stated Complaint: FEVER OF 102 - WAS JUST RELEASED ED Provider: Cornelio Mars Discharge Problem: Fever postop, COVID-19 virus infection Patient Disposition: Being Evaluated by Hospitalist Condition: Good Discharge Instructions Interventions: ED Discharge Assessment Last Done: 09/19/20 01:18 Forms Stand Alone Forms: My [facility] Prescriptions Prescriptions: No Action furosemide [Lasix] 40 mg Tablet 40 mg PO QAM RF: 0 acyclovir 400 mg tablet 400 mg PO BID RF: 0 acetaminophen [Tylenol Extra Strength] 500 mg Tablet 1,000 mg PO Q4H PRN (Reason: Pain) RF: 0 betamethasone dipropionate 0.05 % Cream 1 applic TOPICAL BID PRN (Reason: Rash) RF: 0 metformin 500 mg tablet extended release 24 hr 1,000 mg PO QAM RF: 0 spironolactone 50 mg tablet 150 mg PO QAM RF: 0 oxycodone 5 mg tablet 5 mg PO Q4H PRN (Reason: pain) Qty: 20 RF: 0 ondansetron HCl [Zofran] 4 mg tablet 4 mg PO Q8H PRN (Reason: nausea and vomiting) Qty: 15 RF: 0 carvedilol 6.25 mg tablet 6.25 mg PO BID RF: 0 omeprazole 20 mg capsule,delayed release(DR/EC) 20 mg PO QAM RF: 0 doxycycline hyclate 100 mg Capsule 100 mg PO BID Qty: 11 RF: 0 potassium chloride [Klor-Con M20] 20 mEq Tablet,Er Particles/Crystals 20 meq PO DAILY Qty: 3 RF: 0 loperamide 2 mg capsule 2 mg PO UD PRN (Reason: Diarrhea) RF: 0 Referrals Referrals: Rhina Ibrahim MD [Primary Care Provider] -
[2020-09-18 20:52] LABS: Hematocrit (blood only) 34.9 % (42-52); Hemoglobin 12.5 g/dL (14.0-18.0); Mean Corpuscular Hemoglobin 30.9 pg (25-34); Mean Corpuscular Hgb Conc 35.8 g/dL (32-36); Mean Corpuscular Volume 86.4 fL (80-100); RDW Coefficient of Variation 13.8 % (11.5-14.5); RDW Standard Deviation 43.9 fL (36.4-46.3); Red Blood Count 4.04 M/uL (4.7-6.1)
[2020-09-18 20:53] LABS: Mean Platelet Volume 10.7 fL (7.4-10.4); Platelet Count 61 K/uL (130-400)
[2020-09-18 21:03] LABS: INR 1.2 (0.9-1.1); Partial Thromboplastin Ratio 1.1; Partial Thromboplastin Time 30.4 Seconds (21.0-31.0)
[2020-09-18 21:12] LABS: Alanine Aminotransferase 18 U/L (12-78); Albumin Level 2.8 gm/dl (3.4-5.0); Aspartate Aminotransferase 19 U/L (15-37); BUN Creatinine Ratio 12.3 (10-20); Blood Urea Nitrogen 12 mg/dl (7-18); C Reactive Protein 5.91 mg/dl (0-0.29); Calcium 7.4 mg/dl (8.5-10.1); Carbon Dioxide 22 mmol/L (21-32); Chloride 109 mmol/L (98-107); Creatinine Clr Calc Pharmacy 87.8 ml/min; Est GFR (Non-African American) 77.7; Glucose 155 mg/dl (70-99); Magnesium 1.6 mg/dl (1.8-2.4); Potassium 3.3 mmol/L (3.5-5.1); Sodium 140 mmol/L (136-145)
[2020-09-18 21:13] LABS: Acanthocytes 1+; Eosinophils # (auto) 0.01 K/uL (0-0.5); Eosinophils % (auto) 0.4 %; Giant Platelets 1+; Lymphocytes # (auto) 0.28 K/uL (1.2-3.4); Lymphocytes % (auto) 10.8 %; Monocytes # (auto) 0.03 K/uL (0.11-0.59); Monocytes % (auto) 1.2 %; Neutrophils # (auto) 2.28 K/uL (1.4-6.5); Neutrophils % (auto) 87.6 %; Ovalocytes 1+
[2020-09-18 21:17] LABS: Albumin Globulin Ratio 1.2 (0.9-2); Alkaline Phosphatase 44 U/L (45-117); Globulin 2.4 gm/dl (2.5-4.0); NT Pro B Type Natriuretic Pept 497 pg/ml (0-900); Total Protein 5.2 gm/dl (6.4-8.2); Troponin I < 0.015 ng/ml (0-0.045)
[2020-09-18 23:03] LABS: Appearance Urine Clear (Clear); Bacteria Urine Automated Negative (Negative); Blood Urine Negative (Negative); Color Urine Dark Yellow; Glucose Urine UA Negative (Negative); Ketones Urine Trace (Negative); Leukocyte Esterase Urine Negative (Negative); Nitrite Urine Negative (Negative); Protein Urine 1+ (Negative); RBC Urine Automated 0-4 /hpf (0-4); Specific Gravity Urine 1.025 (1.000-1.030); Urobilinogen Urine Negative (Negative); pH Urine 5.5 (4.5-7.5)
[2020-09-18 23:04] LABS: Bilirubin Urine 1+ (Negative)
[2020-09-18] MEDS ORDERED: PIPERACILLIN/TAZOBACTAM 4.5 GM/120 ML BAG IV ONE (23:31)
[2020-09-18] MEDS ORDERED: SODIUM CHLORIDE 0.9% 1000ML 1,000 ML IV ONE (23:31)
[2020-09-18] MEDS ORDERED: PIPERACILL/TAZOBAC CONSULT ACTIVE PRN (23:31)
[2020-09-18] MEDS ORDERED: ACETAMINOPHEN 325 MG TAB PO STA (23:39)
[2020-09-18] MEDS ORDERED: POTASSIUM CHLORIDE CRTAB 20 MEQ TABCR PO STA (23:41)
--- NOTE | 2020-09-19 00:26 | History & Physical Report ---
Date of Service September 19, 2020 Assessment & Plan (1) Fever postop: Likely from COVID-19 illness, mild clinical dehydration (ketonuria) from diarrhea symptoms Patient not toxic. recent right inguinal hernia repair No other complaints other than some postop wound seepage. 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 Luciano.) Basal insulin, ISS BG goal [id number], carb count coverage Replace electrolytes DVT prophylaxis. SCDs RE thrombocytopenia Full code Text document was generated using LOAG voice recognition software. It may contain grammatical or spelling errors. Kindly contact undersigned for clarification of any documentation item in question. History of Present Illness Chief Complaint: Fever at home Primary Care Provider: Rhina Ibrahim MD History obtained from patient and records. 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 Recent confinement 09/13-09/18 for small bowel obstruction secondary to incarcerated right inguinal hernia status post surgery. Patient found to be COVID-19 positive during confinement. known to be afflicted with virus. No respiratory symptoms from COVID-19. Loose stools during confinement. Stool C. difficile negative. Patient discharged yesterday on doxycycline course for postop fever. Temperature noted by to be 102 degrees at home. Patient denies cough, chest pain, S OB symptoms. Some seepage from right inguinal wound as per patient. No abdominal pain. Same diarrhea symptoms. IV Zosyn administered at the ER. 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 Allergies Allergy/AdvReac Type Severity Reaction Status Date / Time No Known Allergies Allergy Verified 09/18/20 21:21 Home Medications Medication Instructions Recorded Confirmed Type carvedilol 6.25 mg PO BID 07/24/18 09/18/20 History omeprazole 20 mg PO QAM 07/24/18 09/18/20 History furosemide [Lasix] 40 mg PO QAM 11/12/19 09/18/20 History acetaminophen [Tylenol Extra 1,000 mg PO Q4H PRN 09/13/20 09/18/20 History Strength] acyclovir 400 mg PO BID 09/13/20 09/18/20 History betamethasone dipropionate 1 applic TOPICAL BID PRN 09/13/20 09/18/20 History metformin 1,000 mg PO QAM 09/13/20 09/18/20 History ondansetron HCl [Zofran] 4 mg PO Q8H PRN #15 tab 09/13/20 09/18/20 Rx oxycodone 5 mg PO Q4H PRN #20 tab 09/13/20 09/18/20 Rx spironolactone 150 mg PO QAM 09/13/20 09/18/20 History doxycycline hyclate 100 mg PO BID #11 cap 09/18/20 09/18/20 Rx loperamide 2 mg PO UD PRN 09/18/20 09/18/20 History potassium chloride [Klor-Con M20] 20 meq PO DAILY #3 tab 09/18/20 09/18/20 Rx Past Med/Surg History Medical History Basal cell carcinoma removal from left , left side of face Cirrhosis Esophageal varices Hemolytic anemia Inguinal hernia right side Pancreatitis Portal hypertension Pulmonary embolism bilateral lungs Thrombocytopenia Umbilical hernia Surgical History History of cataract surgery bilateral eyes History of cholecystectomy History of colonoscopy History of esophagogastroduodenoscopy (EGD) with banding of esophagous due to portal hypertension History of tonsillectomy and adenoidectomy Social History Smoking Status: Never smoker Hx Alcohol Use: No Hx Substance Use: No Preferred Language: Georgian Communication Ability: Effective School Administrator Required: No Beliefs That Will Affect Care: None marital status: Current Living Situation: Spouse Feels Safe at Home: Yes Safety Concerns: Feels Safe At This Time Assistive Devices: Glasses Review of Systems Review of Systems: As per HPI, all 10 systems reviewed, all other ROS negative Physical Exam Physical Exam: GENERAL: Comfortable, pleasant, no respiratory distress SKIN: Pallor, warm HEENT: Bespectacled, pale palpebral conjunctivae, no ptosis, dry buccal mucosa NECK : Supple, no tenderness CHEST : CTA, no tenderness HEART : RRR, no obvious murmurs ABDOMEN: Some distention, dressing over right groin EXTREMITIES : Minimal LE swelling, no LE tenderness, no other conspicuous deformities noted NEUROLOGIC : Coherent, no facial asymmetry, no other gross focality Results & Data Results & Data ([facility]) Vital Signs (Past 12 Hours) Vital Signs Temp Pulse Resp BP Pulse Ox 09/18/20 23:00 63 19 101/53 L 93 09/18/20 22:30 71 17 100/49 L 95 09/18/20 22:00 65 22 113/55 L 92 09/18/20 21:40 73 25 H 93 09/18/20 21:30 69 23 114/56 L 95 09/18/20 21:20 69 22 95 09/18/20 21:10 74 21 94 09/18/20 21:09 72 22 108/53 L 93 09/18/20 21:00 76 19 95 09/18/20 20:53 94 09/18/20 20:50 73 23 09/18/20 20:40 81 21 09/18/20 20:30 92 H 14 116/52 L 94 09/18/20 20:28 83 23 93 09/18/20 20:24 80 24 129/65 94 09/18/20 20:21 37.7 C H 82 20 129/65 94 Laboratory Results Laboratory Results WBC 2.60 K/uL (4.8-10.8) L 09/18/20 20:40 RBC 4.04 M/uL (4.7-6.1) L 09/18/20 20:40 Hgb 12.5 g/dL (14.0-18.0) L 09/18/20 20:40 Hct 34.9 % (42-52) L 09/18/20 20:40 MCV 86.4 fL (80-100) 09/18/20 20:40 MCH 30.9 pg (25-34) 09/18/20 20:40 MCHC 35.8 g/dL (32-36) 09/18/20 20:40 RDW Std Deviation 43.9 fL (36.4-46.3) 09/18/20 20:40 RDW Coeff of [place] 13.8 % (11.5-14.5) 09/18/20 20:40 Plt Count 61 K/uL (130-400) L 09/18/20 20:40 MPV 10.7 fL (7.4-10.4) H 09/18/20 20:40 Immature Gran % (Auto) 0.0 % 09/18/20 20:40 Neut % (Auto) 87.6 % 09/18/20 20:40 Lymph % (Auto) 10.8 % 09/18/20 20:40 [place] % (Auto) 1.2 % 09/18/20 20:40 Eos % (Auto) 0.4 % 09/18/20 20:40 Baso % (Auto) 0.0 % 09/18/20 20:40 Neut # (Auto) 2.28 K/uL (1.4-6.5) 09/18/20 20:40 Lymph # (Auto) 0.28 K/uL (1.2-3.4) L 09/18/20 20:40 [place] # (Auto) 0.03 K/uL (0.11-0.59) L 09/18/20 20:40 Eos # (Auto) 0.01 K/uL (0-0.5) 09/18/20 20:40 Baso # (Auto) 0.00 K/uL (0-0.2) 09/18/20 20:40 Immature Gran # (Auto) 0.00 K/uL (0.00-0.02) 09/18/20 20:40 Giant Platelets 1+ 09/18/20 20:40 Ovalocytes 1+ 09/18/20 20:40 Acanthocytes (Spur) 1+ 09/18/20 20:40 ESR 11 mm/hr (0-14) 09/18/20 20:40 PT 13.0 Seconds (9.0-12.0) H 09/18/20 20:40 INR 1.2 (0.9-1.1) H 09/18/20 20:40 APTT 30.4 Seconds (21.0-31.0) 09/18/20 20:40 PTT Ratio 1.1 09/18/20 20:40 Sodium 140 mmol/L (136-145) 09/18/20 20:40 Potassium 3.3 mmol/L (3.5-5.1) L 09/18/20 20:40 Chloride 109 mmol/L (98-107) H 09/18/20 20:40 Carbon Dioxide 22 mmol/L (21-32) 09/18/20 20:40 Anion Gap 9.0 (3-11) 09/18/20 20:40 BUN 12 mg/dl (7-18) 09/18/20 20:40 Creatinine 0.97 mg/dl (0.6-1.4) 09/18/20 20:40 Est Cr Clr Drug Dosing 87.8 ml/min 09/18/20 20:40 Est GFR ( Amer) 90.0 09/18/20 20:40 Est GFR (Non-Af Amer) 77.7 09/18/20 20:40 BUN/Creatinine Ratio 12.3 (10-20) 09/18/20 20:40 Glucose 155 mg/dl (70-99) H 09/18/20 20:40 Lactate 1.4 mmol/L (0.4-2.0) 09/18/20 20:40 Calcium 7.4 mg/dl (8.5-10.1) L 09/18/20 20:40 Magnesium 1.6 mg/dl (1.8-2.4) L 09/18/20 20:40 Total Bilirubin 1.0 mg/dl (0.2-1) 09/18/20 20:40 AST 19 U/L (15-37) 09/18/20 20:40 ALT 18 U/L (12-78) 09/18/20 20:40 Alkaline Phosphatase 44 U/L (45-117) L 09/18/20 20:40 Troponin I < 0.015 ng/ml (0-0.045) 09/18/20 20:40 C-Reactive Protein 5.91 mg/dl (0-0.29) H 09/18/20 20:40 NT-Pro-B Natriuret Pep 497 pg/ml (0-900) 09/18/20 20:40 Total Protein 5.2 gm/dl (6.4-8.2) L 09/18/20 20:40 Albumin 2.8 gm/dl (3.4-5.0) L 09/18/20 20:40 Globulin 2.4 gm/dl (2.5-4.0) L 09/18/20 20:40 Albumin/Globulin Ratio 1.2 (0.9-2) 09/18/20 20:40 Procalcitonin < 0.05 ng/ml (0-0.5) 09/18/20 20:40 Urine Color Dark Yellow 09/18/20 22:22 Urine Appearance Clear (Clear) 09/18/20 22:22 Urine pH 5.5 (4.5-7.5) 09/18/20 22:22 Ur Specific [place] 1.025 (1.000-1.030) 09/18/20 22:22 Urine Protein 1+ (Negative) H 09/18/20 22:22 Urine Glucose (UA) Negative (Negative) 09/18/20 22:22 Urine Ketones Trace (Negative) H 09/18/20 22:22 Urine Blood Negative (Negative) 09/18/20 22:22 Urine Nitrite Negative (Negative) 09/18/20 22:22 Urine Bilirubin 1+ (Negative) H 09/18/20 22:22 Urine Urobilinogen Negative (Negative) 09/18/20 22:22 Ur Leukocyte Esterase Negative (Negative) 09/18/20 22:22 Urine WBC (Auto) 1-5 /hpf (0-5) 09/18/20 22:22 Urine RBC (Auto) 0-4 /hpf (0-4) 09/18/20 22:22 U Hyaline Cast (Auto) 1-5 /lpf (0-5) 09/18/20 22:22 U Epithel Cells (Auto) 10-20 /lpf (0-5) H 09/18/20 22:22 Urine Bacteria (Auto) Negative (Negative) 09/18/20 22:22 Diagnostic Findings Chest x-ray as per my interpretation interstitial infiltrates KUB x-ray read pending EKG as per my interpretation : Rate 85, NSR, normal axis, incomplete RBBB, T wave flattening inferior leads
[2020-09-19] MEDS ORDERED: DEXTROSE 50% 50 ML SYRINGE IV PRN (01:55)
[2020-09-19] MEDS ORDERED: GLUCOSE 10 TABS/TUBE PO PRN (01:55)
[2020-09-19] MEDS ORDERED: GLUCOSE 40% GEL 15 GM TUBE PO PRN (01:55)
[2020-09-19] MEDS ORDERED: oxyCODONE HCL IR 5 MG TAB (IMMEDIATE RELEASE) PO PRN (01:55)
[2020-09-19] MEDS ORDERED: GLUCAGON FOR INJ 1 MG VIAL SQ PRN (01:55)
[2020-09-19] MEDS ORDERED: MAGNESIUM SULFATE / D5W 1 GM/100 ML BAG IV ONE (01:55)
[2020-09-19] MEDS ORDERED: LOPERAMIDE HCL 2 MG CAP PO PRN (01:55)
[2020-09-19] MEDS ORDERED: CARBOHYDRATES FOR HYPOGLYCEMIA PO PRN (01:55)
[2020-09-19] MEDS ORDERED: LACTATED RINGER'S 1,000 ML IV ONE (01:55)
[2020-09-19] MEDS: INSULIN ASPART 100 UNITS/ML 3 ML PEN SC SCH ×5 (02:40→20:58)
[2020-09-19] MEDS ORDERED: CALCIUM GLUCONATE 10% 1,000 MG in SODIUM CHLORIDE 0.9% 50 ML IV STA (05:49)
[2020-09-19 08:04] LABS: Hematocrit (blood only) 35.9 % (42-52); Hemoglobin 12.2 g/dL (14.0-18.0); Mean Corpuscular Volume 88.2 fL (80-100); RDW Coefficient of Variation 13.9 % (11.5-14.5); RDW Standard Deviation 45.1 fL (36.4-46.3); Red Blood Count 4.07 M/uL (4.7-6.1); White Blood Count 1.54 K/uL (4.8-10.8)
[2020-09-19 08:12] LABS: Mean Platelet Volume 11.4 fL (7.4-10.4); Platelet Count 49 K/uL (130-400)
--- NOTE | 2020-09-19 08:16 | XRay Report ---
XR chest 1V portable CLINICAL HISTORY: SEPSIS COMPARISON STUDY: 09/17/2020 FINDINGS: The cardiac and mediastinal contours remain stable. There is mild interstitial thickening u nchanged from the prior study. There is no lobar consolidation. There are no pleural effusions.[ IMPRESSION: Stable mild nonspecific interstitial thickening. ACT 112: Negative or not required by law. Electronically signed by: Sonu Luther M.D. 09/19/2020 8:15 AM
--- NOTE | 2020-09-19 08:31 | XRay Report ---
KUB HISTORY: Acute postoperative fever. post op fever COMPARISON: CT abdomen pelvis 09/15/2020 FINDINGS: Cholecystectomy. Surgical clips project over the abdominal right lower quadrant. Mildly pro minent air-filled loops of small and large bowel are noted. Resolution of the previously described sm all bowel obstruction pattern. No definite pneumatosis or pneumoperitoneum. No urolith. No acute frac ture. IMPRESSION: 1. Air-filled loops of small and large bowel are suggestive of ileus. 2. No pneumoperitoneum identified. ACT 112: Negative or not required by law. The above report was generated using voice recognition software. It may contain grammatical, syntax o r spelling errors. Electronically signed by: Holger Leon M.D. 09/19/2020 8:30 AM
[2020-09-19 08:40] LABS: BUN Creatinine Ratio 12.2 (10-20); Calcium 8.2 mg/dl (8.5-10.1); Creatinine Clr Calc Pharmacy 102.9 ml/min; Est GFR (African American) 102.9; Est GFR (Non-African American) 88.8; Potassium 3.5 mmol/L (3.5-5.1)
[2020-09-19] MEDS: carvediloL 6.25 MG TAB PO SCH ×2 (08:40→20:54)
[2020-09-19] MEDS: PANTOprazole 40 MG TAB PO SCH (08:41)
[2020-09-19] MEDS: ACYCLOVIR 400 MG TAB PO SCH ×2 (08:42→20:54)
[2020-09-19] MEDS: DOXYCYCLINE HYCLATE 100 MG CAP PO SCH ×2 (08:42→20:54)
[2020-09-19 08:53] LABS: Acanthocytes 1+; Eosinophils # (auto) 0.01 K/uL (0-0.5); Eosinophils % (auto) 0.6 %; Lymphocytes # (auto) 0.11 K/uL (1.2-3.4); Lymphocytes % (auto) 7.1 %; Monocytes # (auto) 0.14 K/uL (0.11-0.59); Monocytes % (auto) 9.1 %; Neutrophils # (auto) 1.28 K/uL (1.4-6.5); Neutrophils % (auto) 83.2 %; Ovalocytes 1+
[2020-09-19] MEDS: INSULIN GLARGINE SOLOSTAR 100 UNITS/ML 3 ML PEN SC SCH (08:56)
--- NOTE | 2020-09-19 13:47 | Surgery Consultation ---
Date of Consultation September 19, 2020 Assessment & Plan (1) Incarcerated right inguinal hernia: POD 4 no evidence of infection at operative site WBC 1.5, repeat blood cultures pending, otherwise repeat w/u for post-op fever negative may shower skin haris can be removed 7-10 days postop History of Present Illness Attending Physician: Pierre Pathak MD History of Present Illness 70 y/o male POD 4 repair of incarcerated right inguinal hernia discharged yesterday afternoon and had fever again last evening and returned to ED due to concern for COVID. Otherwise was feeling fine. Has not had fever or chills today. Work-up for post op fever was negative over the weekend, and repeated again last night. Allergies Allergy/AdvReac Type Severity Reaction Status Date / Time No Known Allergies Allergy Verified 09/18/20 21:21 Home Medications Medication Instructions Recorded Confirmed Type carvedilol 6.25 mg PO BID 07/24/18 09/18/20 History omeprazole 20 mg PO QAM 07/24/18 09/18/20 History furosemide [Lasix] 40 mg PO QAM 11/12/19 09/18/20 History acetaminophen [Tylenol Extra 1,000 mg PO Q4H PRN 09/13/20 09/18/20 History Strength] acyclovir 400 mg PO BID 09/13/20 09/18/20 History betamethasone dipropionate 1 applic TOPICAL BID PRN 09/13/20 09/18/20 History metformin 1,000 mg PO QAM 09/13/20 09/18/20 History ondansetron HCl [Zofran] 4 mg PO Q8H PRN #15 tab 09/13/20 09/18/20 Rx oxycodone 5 mg PO Q4H PRN #20 tab 09/13/20 09/18/20 Rx spironolactone 150 mg PO QAM 09/13/20 09/18/20 History doxycycline hyclate 100 mg PO BID #11 cap 09/18/20 09/18/20 Rx loperamide 2 mg PO UD PRN 09/18/20 09/18/20 History potassium chloride [Klor-Con M20] 20 meq PO DAILY #3 tab 09/18/20 09/18/20 Rx Patient History Medical History Basal cell carcinoma removal from left , left side of face Cirrhosis Esophageal varices Hemolytic anemia Inguinal hernia right side Pancreatitis Portal hypertension Pulmonary embolism bilateral lungs Thrombocytopenia Umbilical hernia Surgical History History of cataract surgery bilateral eyes History of cholecystectomy History of colonoscopy History of esophagogastroduodenoscopy (EGD) with banding of esophagous due to portal hypertension History of tonsillectomy and adenoidectomy Social History Smoking Status: Never smoker Hx Alcohol Use: No Hx Substance Use: No Preferred Language: Kinyarwanda Communication Ability: Effective Customer Service Analyst Required: No Beliefs That Will Affect Care: None marital status: Current Living Situation: Spouse Feels Safe at Home: Yes Assistive Devices: None and Glasses Review of Systems Constitutional: + fever; no chills Gastrointestinal: no abdominal pain, no nausea and no vomiting Physical Exam Constitutional: WD/WN, vitals as above Respiratory: normal respiratory effort Gastrointestinal (Abdomen): Inspection/Auscultation: + abdominal surgical incision (clean, dry, no erythema); abdomen not distended Percussion/Palpation: abdomen soft Results & Data ([facility]) Vital Signs (Past 12 Hours) Vital Signs Temp Pulse Resp BP Pulse Ox 09/19/20 07:49 37.1 C 61 18 111/67 96 PG Care Time/CCT Total # of Minutes Spent Total Time Spent with Patient: Total time spent is greater than 50% in coordination of care (as documented) at patient's floor/unit and/or counseling patient: Coding Level of Care Code None Diagnoses Incarcerated right inguinal hernia K40.30
[2020-09-19] MEDS ORDERED: ACETAMINOPHEN 325 MG TAB PO PRN (16:13)
--- NOTE | 2020-09-19 17:05 | Hospitalist Progress Note ---
Date of Service September 19, 2020 Assessment & Plan (1) Fever postop: Postoperative Fever DD Secondary to COVID-19 illness No obvious source of infection Surgical site doesn't look infected Blood Cx; Negative CXR:Stable mild nonspecific interstitial thickening UA not suggestive of UTI Normal Lactate, Procalcitonin Empirically on Doxycycline Will obtain CT ABD COVID 19 Pneumonia COVID screen positive on 09/13/20 CXR as above Saturating 96-97% on room air No treatment indicated currently DM II Last Hb A1C: 6.09 September 2020 Hold PO meds Continue insulin therapy while hospitalized Monitor blood glucose levels Diarrhea Stool Negative for C diff Gentle IV fluids Hypokalemia Replace electrolytes as needed H/O cirrhosis History of GI bleed, esophageal varices Chronic thrombocytopenia Portal hypertension H/O autoimmune hemolytic anemia Resume home spironolactone, Lasix as able H/O Herpes On Acyclovir GERD Continue PPI Chronic thrombocytopenia Likely secondary to cirrhosis No active bleeding Monitor DVT Px: SCDs Re: High risk for bleeding, Thrombocytopenia Code Status Full code Admission and Anticipated Discharge Date Admission Date: September 19, 2020 Subjective Patient is seen and examined at bedside Offers no complaints Febrile this afternoon Denies pain at surgical site Also denies chest pain, dyspnea, dizziness, nausea, abdominal pain, cough Will obtain CT abd Review of Systems Review of Systems: All systems reviewed & are unremarkable except as noted in HPI & below Physical Exam Physical Exam: Physical Exam: Vitals signs as noted above General Appearance:Moderately built and nourished, no apparent distress Head: normocephalic, Atraumatic Eyes: normal inspection, EOMI Neck: supple, Trachea midline Respiratory/Chest: Normal breath sounds, CTA Cardiovascular: S1, S2, No murmur Abdomen/GI:Soft, Non tender, Bowel sounds present :+ Right Inguinal surgical site with haris Extremities/Musculoskelatal:normal inspection, No pedal edema Neurologic/Psych:AAOX3, grossly no focal neurological deficits Skin: normal color, warm Results & Data Results & Data ([facility]) Vital Signs (Past 12 Hours) Vital Signs Temp Pulse Resp BP Pulse Ox 09/19/20 16:01 38.2 C H 76 16 137/68 97 09/19/20 07:49 37.1 C 61 18 111/67 96 Laboratory Results Short CBC 09/18/20 09/19/20 Range/Units 20:40 07:43 WBC 2.60 L 1.54 L (4.8-10.8) K/uL Hgb 12.5 L 12.2 L (14.0-18.0) g/dL Hct 34.9 L 35.9 L (42-52) % Plt Count 61 L 49 L (130-400) K/uL BMP 09/18/20 09/19/20 20:40 07:43 Sodium 140 143 Potassium 3.3 L 3.5 Chloride 109 H 113 H Carbon Dioxide 22 23 BUN 12 10 Creatinine 0.97 0.81 Glucose 155 H 110 H Calcium 7.4 L 8.2 L Cardiac Enzymes 09/18/20 Range/Units 20:40 Troponin I < 0.015 (0-0.045) ng/ml Liver Function 09/18/20 Range/Units 20:40 Total Bilirubin 1.0 (0.2-1) mg/dl AST 19 (15-37) U/L ALT 18 (12-78) U/L Alkaline Phosphatase 44 L (45-117) U/L Albumin 2.8 L (3.4-5.0) gm/dl Urine 09/18/20 Range/Units 22:22 Urine Color Dark Yellow Urine Appearance Clear (Clear) Urine pH 5.5 (4.5-7.5) Ur Specific [place] 1.025 (1.000-1.030) Urine Protein 1+ H (Negative) Urine Glucose (UA) Negative (Negative)
--- NOTE | 2020-09-19 17:52 | CT Scan Report ---
CT SCAN OF THE ABDOMEN AND PELVIS WITHOUT IV CONTRAST CLINICAL HISTORY: Postoperative fever. COMPARISON STUDY: Abdominal CT dated 09/15/2020. TECHNIQUE: CT scan of the abdomen and pelvis is performed from the lung bases to the proximal femora. Images are reviewed in the axial, sagittal, and coronal planes. IV contrast was not administered for this examination. Note that the examination was performed in significantly suboptimal fashion withou t oral and IV contrast. A dose lowering technique was utilized adhering to the principles of ALARA. CT DOSE: 1263.44 mGy.cm FINDINGS: Lung bases: The heart is top normal in size and without pericardial effusion. Intralobular septal thi ckening is noted at both lung bases and there are bibasilar airspace opacities. A nodular opacity at the left lung base on image #17 measures 2.4 cm. There are trace pleural effusions with bibasilar ate lectasis. There is a moderate hiatal hernia. Esophageal varices are noted. Liver: The unenhanced liver is cirrhotic in morphology and heterogeneous in attenuation. There is hyp ertrophy of the left lobe and nodularity of the hepatic surface contour. There is no intrahepatic noemi iary ductal dilatation. Gallbladder: Surgically absent noting clips in the gallbladder fossa. Spleen: The spleen is markedly enlarged measuring 20.5 cm in length. Pancreas: The unenhanced pancreas is grossly unremarkable. Adrenal glands: Unremarkable. Kidneys: The unenhanced kidneys are atrophic and without hydronephrosis. There are no renal calculi i dentified. There is no evidence of contour deforming renal mass lesion. Abdominal vasculature: The abdominal aorta is normal in course and caliber noting mild atheroscleroti c calcification. Bowel: There is no bowel obstruction. There is moderate to advanced colonic diverticulosis without CT evidence of acute diverticulitis. The appendix is well-visualized and normal. Peritoneum: There is nonspecific mesenteric edema and a small volume of abdominopelvic ascites. No in traperitoneal free air is seen. Lymphadenopathy: None. Pelvic viscera: There is median lobe hypertrophy of the prostate gland. The bladder wall is thickened and trabeculated indicating chronic outlet obstruction. Intraluminal gas is nonspecific and may be r elated to instrumentation. Postoperative change and edema is seen along the right inguinal canal. The re is a complex fluid identified extending from the right inguinal region towards the right hemiscrot um. This measures approximately 11 x 5 x 5 cm as seen on image #40 of 57. There is layering hyperdens e debris within this collection (axial image #14 and 71) which may represent blood products. Scrotal edema is noted. A small fat-containing inguinal hernia seen on the left. Skeletal structures: The skeletal structures are osteopenic. There is moderate lumbosacral spondylosi s. Degenerative change is noted in the hips and sacroiliac joints. No lytic or blastic lesions are se en. Soft tissues: Postoperative change is noted in the right groin with small foci of subcutaneous gas an d overlying skin clips. IMPRESSION: 1. Suboptimal examination without oral and IV contrast. 2. Postoperative change is noted in the right groin. 3. A complex fluid collection is seen extending from the right inguinal canal towards the right hemis crotum as above. This contains layering hyperdense internal debris and likely represents a postoperat peyman hematoma. Clinical correlation will be required. 4. Small bowel obstruction seen previously has resolved. 5. Cirrhotic liver morphology. 6. Marked splenomegaly, a small volume of abdominopelvic ascites, and esophageal varices indicate por bridgett hypertension. 7. Intralobular septal thickening is noted at the lung bases with bibasilar airspace opacities and tr cherise pleural effusions. This could represent a component of congestive change. Correlate clinically fo r evidence of a superimposed infectious/inflammatory pneumonitis. 8. A 2.4 cm irregular airspace opacity is again seen at the left lung base. Follow-up chest CT in 3 m onths time is again recommended to document resolution. 9. Moderate to advanced colonic diverticulosis without CT evidence of acute diverticulitis. 10. Gas within the bladder lumen is nonspecific and may be related to instrumentation. Correlation [facility] clinical findings and urinalysis will be required. 11. Additional findings as above. ACT 112: Negative or not required by law. Electronically signed by: Brenden Martínez M.D. 09/19/2020 5:51 PM
--- NOTE | 2020-09-19 18:18 | Electrocardiogram Report ---
Test Reason : Blood Pressure : / mmHG Vent. Rate : 086 BPM Atrial Rate : 086 BPM P-R Int : 130 ms QRS Dur : 100 ms QT Int : 384 ms P-R-T Axes : 048 -06 049 degrees QTc Int : 459 ms Normal sinus rhythm Incomplete right bundle branch block Borderline ECG When compared with ECG of 15-SEP-2020 12:22, No significant change was found Confirmed by Nitesh South ([id number]) on 09/19/2020 6:17:46 PM Referred By: REFERRED SELF Confirmed By:Nitesh South
[2020-09-20] MEDS ORDERED: Nursing to Pharmacy Communication SCH (00:15)
[2020-09-20] MEDS: INSULIN ASPART 100 UNITS/ML 3 ML PEN SC SCH ×4 (05:48→21:20)
[2020-09-20 07:33] LABS: Hematocrit (blood only) 33.5 % (42-52); Hemoglobin 11.6 g/dL (14.0-18.0); Mean Corpuscular Hemoglobin 30.4 pg (25-34); Mean Corpuscular Hgb Conc 34.6 g/dL (32-36); Mean Corpuscular Volume 87.7 fL (80-100); RDW Coefficient of Variation 13.9 % (11.5-14.5); RDW Standard Deviation 44.3 fL (36.4-46.3); Red Blood Count 3.82 M/uL (4.7-6.1); White Blood Count 1.37 K/uL (4.8-10.8)
[2020-09-20 07:50] LABS: Mean Platelet Volume 10.5 fL (7.4-10.4); Platelet Count 55 K/uL (130-400)
[2020-09-20 07:52] LABS: BUN Creatinine Ratio 15.2 (10-20); Creatinine Clr Calc Pharmacy 106.8 ml/min; Est GFR (African American) 104.5; Est GFR (Non-African American) 90.2; Magnesium 1.8 mg/dl (1.8-2.4); Potassium 3.8 mmol/L (3.5-5.1)
[2020-09-20 08:23] LABS: Acanthocytes 1+; Eosinophils # (auto) 0.01 K/uL (0-0.5); Eosinophils % (auto) 0.7 %; Lymphocytes # (auto) 0.14 K/uL (1.2-3.4); Lymphocytes % (auto) 10.2 %; Monocytes # (auto) 0.08 K/uL (0.11-0.59); Monocytes % (auto) 5.8 %; Neutrophils # (auto) 1.14 K/uL (1.4-6.5); Neutrophils % (auto) 83.3 %; Ovalocytes 1+
[2020-09-20] MEDS: carvediloL 6.25 MG TAB PO SCH ×2 (09:40→21:19)
[2020-09-20] MEDS: DOXYCYCLINE HYCLATE 100 MG CAP PO SCH ×2 (09:40→21:18)
[2020-09-20] MEDS: ACYCLOVIR 400 MG TAB PO SCH ×2 (09:41→21:19)
[2020-09-20] MEDS: PANTOprazole 40 MG TAB PO SCH (09:41)
--- NOTE | 2020-09-20 10:42 | Surgery Progress Note ---
Date of Service September 20, 2020 Assessment & Plan (1) Incarcerated right inguinal hernia: POD 5 RIH repair seen with Dr. Mcclellan CT scan reviewed, scrotal fluid expected given size of hernia + ascites skin haris can be removed in clinic next week dispo per primary service Admission and Anticipated Discharge Date Admission Date: September 19, 2020 Subjective no new c/o, tolerating diet, bowels moving Physical Exam Gastrointestinal (Abdomen): Inspection/Auscultation: + abdominal edema (mild scrotal swelling, unchanged) and + abdominal surgical incision (clean, dry, no erythema) Results & Data ([facility]) Vital Signs (Past 12 Hours) Vital Signs Temp Pulse Resp BP Pulse Ox 09/20/20 07:37 37.8 C H 67 18 113/62 93 09/19/20 23:02 37.1 C 72 16 133/68 95 PG Care Time/CCT Total # of Minutes Spent Total Time Spent with Patient: Total time spent is greater than 50% in coordination of care (as documented) at patient's floor/unit and/or counseling patient: Coding Level of Care Code None Diagnoses Incarcerated right inguinal hernia K40.30
--- NOTE | 2020-09-20 12:05 | Hospitalist Progress Note ---
Date of Service September 20, 2020 Assessment & Plan (1) Fever postop: Postoperative Fever DD Secondary to COVID-19 illness Had Incarcerated right inguinal hernia repair on 09/15/20 No other obvious source of infection Surgical site doesn't look infected Blood Cx; Negative Repeat Blood Cx:pending CXR:Stable mild nonspecific interstitial thickening UA not suggestive of UTI Normal Lactate, Procalcitonin CT ABD: A complex fluid collection is seen extending from the right inguinal canal towards the right hemiscrotum as above. This contains layering hyperdense internal debris and likely represents a postoperative hematoma Empirically on Doxycycline No surgical intervention needed for hematoma as per surgery Will consult ID for input COVID 19 Pneumonia COVID screen positive on 09/13/20 CXR as above No treatment initiated initially has oxygen saturations above 94% Intermittently saturations dropped to 93% We will start on remdesivir, dexamethasone for now and wait for ID input Monitor CBC DM II Last Hb A1C: 6.09 September 2020 Hold PO meds Continue insulin therapy while hospitalized Monitor blood glucose levels Diarrhea Stool Negative for C diff Received gentle IV fluids Diarrhea improved Hypokalemia Normal magnesium levels Replace electrolytes as needed H/O cirrhosis History of GI bleed, esophageal varices Chronic thrombocytopenia Portal hypertension H/O autoimmune hemolytic anemia Resume home spironolactone, Lasix as able H/O Herpes On Acyclovir GERD Continue PPI Chronic thrombocytopenia Likely secondary to cirrhosis No active bleeding Monitor DVT Px: SCDs Re: High risk for bleeding, Thrombocytopenia Code Status Full code Admission and Anticipated Discharge Date Admission Date: September 19, 2020 Subjective Patient is seen and examined at bedside Diarrhea resolved Low-grade fever this morning Offers no complaints Discussed with surgery regarding CT abdomen findings Also discussed with patient's over the phone Denies chest pain, dyspnea, dizziness, nausea, abdominal pain, cough Review of Systems Review of Systems: All systems reviewed & are unremarkable except as noted in HPI & below Physical Exam Physical Exam: Physical Exam: Vitals signs as noted above General Appearance:Moderately built and nourished, no apparent distress Head: normocephalic, Atraumatic Eyes: normal inspection, EOMI Neck: supple, Trachea midline Respiratory/Chest: Normal breath sounds, CTA Cardiovascular: S1, S2, No murmur Abdomen/GI:Soft, Non tender, Bowel sounds present :+ Right Inguinal surgical site with haris Extremities/Musculoskelatal:normal inspection, No pedal edema Neurologic/Psych:AAOX3, grossly no focal neurological deficits Skin: normal color, warm Results & Data Results & Data ([facility]) Vital Signs (Past 12 Hours) Vital Signs Temp Pulse Resp BP Pulse Ox 09/20/20 07:37 37.8 C H 67 18 113/62 93 Laboratory Results Short CBC 09/20/20 Range/Units 06:17 WBC 1.37 L (4.8-10.8) K/uL Hgb 11.6 L (14.0-18.0) g/dL Hct 33.5 L (42-52) % Plt Count 55 L (130-400) K/uL BMP 09/20/20 06:17 Sodium 141 Potassium 3.8 Chloride 111 H Carbon Dioxide 23 BUN 12 Creatinine 0.78 Glucose 97 Calcium 8.0 L
[2020-09-20] MEDS ORDERED: REMDESIVIR 200 MG in SODIUM CHLORIDE 0.9% 210 ML IV ONE (14:45)
[2020-09-20] MEDS: dexAMETHasone 6 MG in SYRINGE 0 ML IV SCH (15:52)
[2020-09-20] MEDS: SODIUM CHLORIDE 0.9% 10ML FLUSH IV SCH (16:30)
[2020-09-21 06:56] LABS: Hematocrit (blood only) 35.5 % (42-52); Hemoglobin 12.3 g/dL (14.0-18.0); Mean Corpuscular Hgb Conc 34.6 g/dL (32-36); Mean Corpuscular Volume 86.6 fL (80-100); RDW Coefficient of Variation 13.5 % (11.5-14.5); White Blood Count 1.15 K/uL (4.8-10.8)
[2020-09-21 07:17] LABS: Mean Platelet Volume 11.2 fL (7.4-10.4); Platelet Count 54 K/uL (130-400)
[2020-09-21 07:23] LABS: Immature Granulocytes # (auto) 0.01 K/uL (0.00-0.02); Immature Granulocytes % (auto) 0.9 %; Lymphocytes # (auto) 0.07 K/uL (1.2-3.4); Lymphocytes % (auto) 6.1 %; Monocytes # (auto) 0.08 K/uL (0.11-0.59); Neutrophils # (auto) 0.99 K/uL (1.4-6.5); Ovalocytes 1+
[2020-09-21 07:24] LABS: Calcium 8.6 mg/dl (8.5-10.1); Creatinine Clr Calc Pharmacy 94.7 ml/min; Est GFR (African American) 99.5; Est GFR (Non-African American) 85.8
[2020-09-21] MEDS: carvediloL 6.25 MG TAB PO SCH ×2 (09:28→21:15)
[2020-09-21] MEDS: dexAMETHasone 6 MG in SYRINGE 0 ML IV SCH (09:28)
[2020-09-21] MEDS: INSULIN GLARGINE SOLOSTAR 100 UNITS/ML 3 ML PEN SC SCH (09:29)
[2020-09-21] MEDS: INSULIN ASPART 100 UNITS/ML 3 ML PEN SC SCH ×4 (09:30→21:17)
[2020-09-21] MEDS: DOXYCYCLINE HYCLATE 100 MG CAP PO SCH ×2 (09:35→21:17)
[2020-09-21] MEDS: ACYCLOVIR 400 MG TAB PO SCH ×2 (09:36→21:17)
[2020-09-21] MEDS: PANTOprazole 40 MG TAB PO SCH (09:36)
[2020-09-21] MEDS: REMDESIVIR 100 MG in SODIUM CHLORIDE 0.9% 230 ML IV SCH (12:27)
[2020-09-21] MEDS: SODIUM CHLORIDE 0.9% 10ML FLUSH IV SCH (14:11)
--- NOTE | 2020-09-21 17:25 | Hospitalist Progress Note ---
Date of Service September 21, 2020 Assessment & Plan (1) Fever postop: Postoperative Fever DD Secondary to COVID-19 illness Had Incarcerated right inguinal hernia repair on 09/15/20 No other obvious source of infection Surgical site doesn't look infected Blood Cx; Negative Repeat Blood Cx:pending CXR:Stable mild nonspecific interstitial thickening UA not suggestive of UTI Normal Lactate, Procalcitonin CT ABD: A complex fluid collection is seen extending from the right inguinal canal towards the right hemiscrotum as above. This contains layering hyperdense internal debris and likely represents a postoperative hematoma Empirically on Doxycycline No surgical intervention needed for hematoma as per surgery Will consult ID for input Afebrile last 24 hours COVID 19 Pneumonia COVID screen positive on 09/13/20 CXR as above No treatment initiated initially has oxygen saturations above 94% Intermittently saturations dropped to 92% and family noted to have Sats 89% Continue Remdesivir, dexamethasone as per Protocol Day #2 ID consulted Monitor CBC Neutropenia Likely due to viral infection Neutropenic precautions Management as above DM II Last Hb A1C: 6.09 September 2020 Hold PO meds Continue insulin therapy while hospitalized Monitor blood glucose levels Diarrhea Stool Negative for C diff Received gentle IV fluids Diarrhea resolved Hypokalemia Normal magnesium levels Replace electrolytes as needed H/O cirrhosis History of GI bleed, esophageal varices Chronic thrombocytopenia Portal hypertension H/O autoimmune hemolytic anemia Resume home spironolactone, Lasix as able H/O Herpes On Acyclovir GERD Continue PPI Chronic thrombocytopenia Likely secondary to cirrhosis No active bleeding Monitor DVT Px: SCDs Re: High risk for bleeding, Thrombocytopenia Code Status Full code Admission and Anticipated Discharge Date Admission Date: September 20, 2020 Subjective Patient is seen and examined at bedside States feeling well Minimal intermittent cough Afebrile in last 24 hours Neutropenia noted on labs Denies chest pain, dyspnea, dizziness, nausea, abdominal pain Review of Systems Review of Systems: As per HPI, all 10 systems reviewed, all other ROS negative Physical Exam Physical Exam: Physical Exam: Vitals signs as noted above General Appearance:Moderately built and nourished, no apparent distress Head: normocephalic, Atraumatic Eyes: normal inspection, EOMI Neck: supple, Trachea midline Respiratory/Chest: Normal breath sounds, CTA Cardiovascular: S1, S2, No murmur Abdomen/GI:Soft, Non tender, Bowel sounds present :+ Right Inguinal surgical site with haris Extremities/Musculoskelatal:normal inspection, No pedal edema Neurologic/Psych:AAOX3, grossly no focal neurological deficits Skin: normal color, warm Results & Data Results & Data ([facility]) Vital Signs (Past 12 Hours) Vital Signs Temp Pulse Resp BP BP Pulse Ox 09/21/20 14:53 36.6 C 65 16 117/72 93 09/21/20 07:45 36.5 C 62 18 112/63 92
[2020-09-22 07:21] LABS: Hematocrit (blood only) 34.2 % (42-52); Hemoglobin 11.8 g/dL (14.0-18.0); Mean Corpuscular Hemoglobin 29.8 pg (25-34); Mean Corpuscular Hgb Conc 34.5 g/dL (32-36); Mean Corpuscular Volume 86.4 fL (80-100); RDW Coefficient of Variation 13.5 % (11.5-14.5); RDW Standard Deviation 42.8 fL (36.4-46.3); Red Blood Count 3.96 M/uL (4.7-6.1); White Blood Count 2.19 K/uL (4.8-10.8)
[2020-09-22 07:31] LABS: Immature Granulocytes # (auto) 0.01 K/uL (0.00-0.02); Immature Granulocytes % (auto) 0.5 %; Lymphocytes # (auto) 0.12 K/uL (1.2-3.4); Lymphocytes % (auto) 5.5 %; Mean Platelet Volume 10.3 fL (7.4-10.4); Monocytes # (auto) 0.09 K/uL (0.11-0.59); Monocytes % (auto) 4.1 %; Neutrophils # (auto) 1.97 K/uL (1.4-6.5); Neutrophils % (auto) 89.9 %; Platelet Count 55 K/uL (130-400)
[2020-09-22 07:49] LABS: Calcium 8.2 mg/dl (8.5-10.1); Creatinine Clr Calc Pharmacy 102.9 ml/min; Est GFR (African American) 102.9; Est GFR (Non-African American) 88.8; Magnesium 2.2 mg/dl (1.8-2.4); Potassium 3.9 mmol/L (3.5-5.1)
[2020-09-22 08:24] LABS: Echinocytes 1+; Ovalocytes 1+
[2020-09-22] MEDS: carvediloL 6.25 MG TAB PO SCH ×2 (08:30→20:50)
[2020-09-22] MEDS: dexAMETHasone 6 MG in SYRINGE 0 ML IV SCH (08:31)
[2020-09-22] MEDS: PANTOprazole 40 MG TAB PO SCH (08:31)
[2020-09-22] MEDS: ACYCLOVIR 400 MG TAB PO SCH ×2 (08:31→20:50)
[2020-09-22] MEDS: DOXYCYCLINE HYCLATE 100 MG CAP PO SCH ×2 (08:31→20:50)
[2020-09-22] MEDS: INSULIN GLARGINE SOLOSTAR 100 UNITS/ML 3 ML PEN SC SCH (08:43)
[2020-09-22] MEDS: INSULIN ASPART 100 UNITS/ML 3 ML PEN SC SCH ×5 (08:43→20:44)
[2020-09-22] MEDS: REMDESIVIR 100 MG in SODIUM CHLORIDE 0.9% 230 ML IV SCH (12:39)
[2020-09-22] MEDS: SODIUM CHLORIDE 0.9% 10ML FLUSH IV SCH (13:49)
--- NOTE | 2020-09-22 14:14 | Hospitalist Progress Note ---
Date of Service September 22, 2020 Assessment & Plan (1) Fever postop: Postoperative Fever DD Secondary to COVID-19 illness Had Incarcerated right inguinal hernia repair on 09/15/20 No other obvious source of infection Surgical site doesn't look infected Blood Cx; Negative Repeat Blood Cx:No growth CXR:Stable mild nonspecific interstitial thickening UA not suggestive of UTI Normal Lactate, Procalcitonin CT ABD: A complex fluid collection is seen extending from the right inguinal c anal towards the right hemiscrotum as above. This contains layering hyperdense internal debris and likely represents a postoperative hematoma Empirically on Doxycycline No surgical intervention needed for hematoma as per surgery ID consulted Neutropenia improving Continue current management COVID 19 Pneumonia COVID screen positive on 09/13/20 CXR as above No treatment initiated initially has oxygen saturations above 94% Intermittently saturations dropped to 92% and family noted to have Sats 89% at home Continue Remdesivir, dexamethasone as per Protocol Day #3 ID consulted Monitor CBC Neutropenia Likely due to viral infection Neutropenic precautions Management as above Neutropenia improving DM II Last Hb A1C: 6.09 September 2020 Hold PO meds Continue insulin therapy while hospitalized Monitor blood glucose levels Diarrhea Stool Negative for C diff Received IV fluids Diarrhea resolved Hypokalemia Normal magnesium levels Replace electrolytes as needed H/O cirrhosis History of GI bleed, esophageal varices Chronic thrombocytopenia Portal hypertension H/O autoimmune hemolytic anemia Resume home diuretics spironolactone, Lasix H/O Herpes On Acyclovir GERD Continue PPI Chronic thrombocytopenia Likely secondary to cirrhosis No active bleeding Monitor DVT Px: SCDs Re: High risk for bleeding, Thrombocytopenia Code Status Full code Admission and Anticipated Discharge Date Admission Date: September 20, 2020 Subjective Patient is seen and examined at bedside Remains afebrile Neutropenia improving No new complaints Had normal BM today Cough continues to improve Denies chest pain, dyspnea, dizziness, nausea, abdominal pain Review of Systems Review of Systems: All systems reviewed & are unremarkable except as noted in HPI & below Physical Exam Physical Exam: Physical Exam: Vitals signs as noted above General Appearance:Moderately built and nourished, no apparent distress Head: normocephalic, Atraumatic Eyes: normal inspection, EOMI Neck: supple, Trachea midline Respiratory/Chest: Normal breath sounds, CTA Cardiovascular: S1, S2, No murmur Abdomen/GI:Soft, Non tender, Bowel sounds present :+ Right Inguinal surgical site with haris Extremities/Musculoskelatal:normal inspection, No pedal edema Neurologic/Psych:AAOX3, grossly no focal neurological deficits Skin: normal color, warm Results & Data Results & Data ([facility]) Vital Signs (Past 12 Hours) Vital Signs Temp Pulse Resp BP Pulse Ox 09/22/20 07:18 36.4 C L 63 18 104/56 L 95 Laboratory Results Short CBC 09/22/20 Range/Units 06:17 WBC 2.19 L (4.8-10.8) K/uL Hgb 11.8 L (14.0-18.0) g/dL Hct 34.2 L (42-52) % Plt Count 55 L (130-400) K/uL BMP 09/22/20 06:17 Sodium 144 Potassium 3.9 Chloride 115 H Carbon Dioxide 23 BUN 18 Creatinine 0.81 Glucose 170 H Calcium 8.2 L
[2020-09-22] MEDS: SPIRONOLACTONE 25 MG TAB PO SCH (15:32)
[2020-09-23 07:26] LABS: Hematocrit (blood only) 33.4 % (42-52); Hemoglobin 11.6 g/dL (14.0-18.0); Mean Corpuscular Hemoglobin 29.9 pg (25-34); Mean Corpuscular Hgb Conc 34.7 g/dL (32-36); Mean Corpuscular Volume 86.1 fL (80-100); RDW Coefficient of Variation 13.7 % (11.5-14.5); RDW Standard Deviation 43.3 fL (36.4-46.3); Red Blood Count 3.88 M/uL (4.7-6.1); White Blood Count 2.51 K/uL (4.8-10.8)
[2020-09-23 07:45] LABS: BUN Creatinine Ratio 21.5 (10-20); Calcium 8.7 mg/dl (8.5-10.1); Creatinine Clr Calc Pharmacy 93.6 ml/min; Est GFR (Non-African American) 85.4; Potassium 3.6 mmol/L (3.5-5.1)
[2020-09-23 07:51] LABS: Echinocytes 1+; Immature Granulocytes # (auto) 0.01 K/uL (0.00-0.02); Immature Granulocytes % (auto) 0.4 %; Lymphocytes # (auto) 0.13 K/uL (1.2-3.4); Lymphocytes % (auto) 5.2 %; Mean Platelet Volume 11.8 fL (7.4-10.4); Monocytes # (auto) 0.14 K/uL (0.11-0.59); Monocytes % (auto) 5.6 %; Neutrophils # (auto) 2.23 K/uL (1.4-6.5); Neutrophils % (auto) 88.8 %; Ovalocytes 1+; Platelet Count 68 K/uL (130-400)
[2020-09-23] MEDS: PANTOprazole 40 MG TAB PO SCH (08:24)
[2020-09-23] MEDS: ACYCLOVIR 400 MG TAB PO SCH (08:24)
[2020-09-23] MEDS: carvediloL 6.25 MG TAB PO SCH (08:24)
[2020-09-23] MEDS: SPIRONOLACTONE 25 MG TAB PO SCH (08:24)
[2020-09-23] MEDS: dexAMETHasone 6 MG in SYRINGE 0 ML IV SCH (08:24)
[2020-09-23] MEDS: DOXYCYCLINE HYCLATE 100 MG CAP PO SCH (08:25)
[2020-09-23] MEDS: INSULIN GLARGINE SOLOSTAR 100 UNITS/ML 3 ML PEN SC SCH (08:25)
[2020-09-23] MEDS: INSULIN ASPART 100 UNITS/ML 3 ML PEN SC SCH ×2 (08:26→12:23)
[2020-09-23] MEDS ORDERED: FUROSEMIDE 40 MG TAB PO SCH (09:00)
[2020-09-23] MEDS ORDERED: POTASSIUM CHLORIDE CRTAB 20 MEQ TABCR PO SCH (09:00)
--- NOTE | 2020-09-23 10:47 | Hospitalist Progress Note ---
Date of Service September 23, 2020 Assessment & Plan (1) Fever postop: Postoperative Fever DD Secondary to COVID-19 illness Had Incarcerated right inguinal hernia repair on 09/15/20 No other obvious source of infection Surgical site doesn't look infected Blood Cx; Negative Repeat Blood Cx:No growth to date CXR:Stable mild nonspecific interstitial thickening UA not suggestive of UTI Normal Lactate, Procalcitonin CT ABD: A complex fluid collection is seen extending from the right inguinal canal towards the right hemiscrotum as above. This contains layering hyperdense internal debris and likely represents a postoperative hematoma Received Doxycycline course while hospitalized No surgical intervention needed for hematoma as per surgery ID consulted Neutropenia improving COVID 19 Pneumonia COVID screen positive on 09/13/20 CXR as above No treatment initiated initially has oxygen saturations above 94% Intermittently saturations dropped to 92% and family noted to have Sats 89% at home Continue Remdesivir, dexamethasone as per Protocol Day #4 ID consulted Monitor CBC 2 step:Did not qualify for home supplemental oxygen Neutropenia Pancytopenia Likely due to viral infection Neutropenic precautions Management as above Neutropenia improving Follows with Hematology as outpatient DM II Last Hb A1C: 6.09 September 2020 Hold PO meds Continue insulin therapy while hospitalized Monitor blood glucose levels Diarrhea Stool Negative for C diff Received IV fluids Diarrhea resolved Hypokalemia Normal magnesium levels Replace electrolytes as needed H/O cirrhosis History of GI bleed, esophageal varices Chronic thrombocytopenia Portal hypertension H/O autoimmune hemolytic anemia Resume home diuretics spironolactone, Lasix H/O Herpes On Acyclovir GERD Continue PPI Chronic thrombocytopenia Likely secondary to cirrhosis No active bleeding Monitor DVT Px: SCDs Re: High risk for bleeding, Thrombocytopenia Code Status Full code Admission and Anticipated Discharge Date Admission Date: September 20, 2020 Subjective Patient is seen and examined at bedside Minimal cough Afebrile No other complaints 2 Step: Did nt qualify for Oxygen Denies chest pain, dyspnea, dizziness, nausea, abdominal pain Review of Systems Review of Systems: All systems reviewed & are unremarkable except as noted in HPI & below Physical Exam Physical Exam: Physical Exam: Vitals signs as noted above General Appearance:Moderately built and nourished, no apparent distress Head: normocephalic, Atraumatic Eyes: normal inspection, EOMI Neck: supple, Trachea midline Respiratory/Chest: Normal breath sounds, CTA Cardiovascular: S1, S2, No murmur Abdomen/GI:Soft, Non tender, Bowel sounds present :+ Right Inguinal surgical site with haris Extremities/Musculoskelatal:normal inspection, No pedal edema Neurologic/Psych:AAOX3, grossly no focal neurological deficits Skin: normal color, warm Results & Data Results & Data ([facility]) Vital Signs (Past 12 Hours) Vital Signs Temp Pulse Resp BP BP Pulse Ox 09/23/20 06:27 36.5 C 62 16 104/59 L 94 09/22/20 23:14 36.4 C L 63 16 110/61 93 Laboratory Results Short CBC 09/23/20 Range/Units 06:13 WBC 2.51 L (4.8-10.8) K/uL Hgb 11.6 L (14.0-18.0) g/dL Hct 33.4 L (42-52) % Plt Count 68 L (130-400) K/uL BMP 09/23/20 06:13 Sodium 142 Potassium 3.6 Chloride 113 H Carbon Dioxide 22 BUN 19 H Creatinine 0.89 Glucose 185 H Calcium 8.7 Liver Function 09/23/20 Range/Units 06:13 AST 20 (15-37) U/L ALT 24 (12-78) U/L
[2020-09-23] MEDS: REMDESIVIR 100 MG in SODIUM CHLORIDE 0.9% 230 ML IV SCH (11:08)
[2020-09-23] MEDS: SODIUM CHLORIDE 0.9% 10ML FLUSH IV SCH (12:22)
--- NOTE | 2020-09-23 13:14 | Discharge Summary ---
Date of Service September 23, 2020 Admission HPI Per Admitting Provider History obtained from patient and records. 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 Recent confinement 09/13-09/18 for small bowel obstruction secondary to incarcerated right inguinal hernia status post surgery. Patient found to be COVID-19 positive during confinement. known to be afflicted with virus. No respiratory symptoms from COVID-19. Loose stools during confinement. Stool C. difficile negative. Patient discharged yesterday on doxycycline course for postop fever. Temperature noted by to be 102 degrees at home. Patient denies cough, chest pain, S OB symptoms. Some seepage from right inguinal wound as per patient. No abdominal pain. Same diarrhea symptoms. IV Zosyn administered at the ER. 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 Admission Exam Per Admitting Provider GENERAL: Comfortable, pleasant, no respiratory distress SKIN: Pallor, warm HEENT: Bespectacled, pale palpebral conjunctivae, no ptosis, dry buccal mucosa NECK : Supple, no tenderness CHEST : CTA, no tenderness HEART : RRR, no obvious murmurs ABDOMEN: Some distention, dressing over right groin EXTREMITIES : Minimal LE swelling, no LE tenderness, no other conspicuous defor mities noted NEUROLOGIC : Coherent, no facial asymmetry, no other gross focality Principal Diagnosis Postoperative Fever COVID 19 Pancytopenia Discharge Data Allergies Allergy/AdvReac Type Severity Reaction Status Date / Time No Known Allergies Allergy Verified 09/18/20 21:21 Consultations 09/18/20 23:38 ED Decision to Admit Stat 09/19/20 01:55 Consult General Surgery Routine 09/20/20 14:22 Consult Infectious Diseases Routine Procedures Performed CT ABD: A complex fluid collection is seen extending from the right inguinal canal towards the right hemiscrotum as above. This contains layering hyperdense internal debris and likely represents a postoperative hematoma Ordered Studies 09/19/20 17:04 CT abd pelvis wo con Routine Hospital Course (1) Fever postop: Postoperative Fever DD Secondary to COVID-19 illness Had Incarcerated right inguinal hernia repair on 09/15/20 No other obvious source of infection Surgical site doesn't look infected Blood Cx; Negative Repeat Blood Cx:No growth to date CXR:Stable mild nonspecific interstitial thickening UA not suggestive of UTI Normal Lactate, Procalcitonin CT ABD: A complex fluid collection is seen extending from the right inguinal canal towards the right hemiscrotum as above. This contains layering hyperdense internal debris and likely represents a postoperative hematoma Received Doxycycline course while hospitalized No surgical intervention needed for hematoma as per surgery ID consulted Neutropenia improving COVID 19 Pneumonia COVID screen positive on 09/13/20 CXR as above No treatment initiated initially has oxygen saturations above 94% Intermittently saturations dropped to 92% and family noted to have Sats 89% at home Continue Remdesivir, dexamethasone as per Protocol Day #4 ID consulted Monitor CBC 2 step:Did not qualify for home supplemental oxygen Neutropenia Pancytopenia Likely due to viral infection Neutropenic precautions Management as above Neutropenia improving Follows with Hematology as outpatient DM II Last Hb A1C: 6.09 September 2020 Hold PO meds Continue insulin therapy while hospitalized Monitor blood glucose levels Diarrhea Stool Negative for C diff Received IV fluids Diarrhea resolved Hypokalemia Normal magnesium levels Replace electrolytes as needed H/O cirrhosis History of GI bleed, esophageal varices Chronic thrombocytopenia Portal hypertension H/O autoimmune hemolytic anemia Resume home diuretics spironolactone, Lasix H/O Herpes On Acyclovir GERD Continue PPI Chronic thrombocytopenia Likely secondary to cirrhosis No active bleeding Monitor DVT Px: SCDs Re: High risk for bleeding, Thrombocytopenia Code Status Full code Total Time Total Time Spent Total Time Spent (In Minutes): 44 minutes Total Time Includes: Examination of the Patient, Discharge Planning, Medication Reconciliation, Communication With Other Providers and Other Discharge Plan Discharge Items Patient Disposition: Home - Self-Care Reason For Visit: FEVER Discharge Diagnosis: Postoperative Fever COVID 19 Pancytopenia Condition on Discharge: Good Activity: Per Instructions section Exercise/Sports: Gradually increase as tolerated Non-emergency contact: Primary Care Provider and Surgeon Call non-emergency contact if: you have any medication questions, your symptoms worsen, your pain is not controlled, your pain is unusual for you, your pain is concerning for you and you have a fever Follow-up/Referrals: Linwood Mcclellan MD [Surgeon] - 09/27/20 9:00 am (Please call to schedule follow up in clinic next week) Rhina Ibrahim MD [Primary Care Provider] - (Date & Time 09/29/2020 11:20 AM Provider Rhina Ibrahim MD Department General Internal Medicine [facility] PLEASE NOTE THAT THIS IS A TELEMEDICINE APPOINTMENT. PLEASE FOLLOW THE INSTRUCTIONS PROVIDED IN YOUR EMAIL. IF YOU HAVE ANY QUESTIONS OR WISH TO CHANGE THE APPOINTMENT TO A TELEPHONE CALL, PLEASE CALL ) Diet: Carb Consistent or DM2, Heart Healthy and Lactose Intolerant Addtl Attending Provider Instructions: Follow-up with your primary care physician Dr.Manisha Ibrahim on 09/29/2020 11:20 AM Follow-up with his surgeon Dr. Mcclellan in 1 week as advised. Please call for appointment. Your haris will be removed at this appointment Follow up with your Oncologist Dr.Nilesh Ibrahim in 2 weeks with repeat blood work as advised. Your final blood cultures are pending at the time of discharge. Follow-up with your physician for results. Seek immediate medical attention if your symptoms reoccur or worsen Home Isolation COVID-19 Instructions The following information about Home Isolation is from the CDC Website: https://www.cdc.gov/coronavirus/2019-ncov/hcp/ovrvochb-ynlelmf-prdlpk.html Stay home except to get medical care People who are mildly ill with COVID-19 are able to isolate at home during their illness. You should restrict activities outside your home, except for getting medical care. Do not go to work, school, or public areas. Avoid using public transportation, ride-sharing, or taxis. Separate yourself from other people and animals in your home People: As much as possible, you should stay in a specific room and away from other people in your home. Also, you should use a separate bathroom, if available. Animals: You should restrict contact with pets and other animals while you are sick with COVID-19, just like you would around other people. Although there have not been reports of pets or other animals becoming sick with COVID-19, it is still recommended that people sick with COVID-19 limit contact with animals until more information is known about the virus. When possible, have another member of your household care for your animals while you are sick. If you are sick with COVID-19, avoid contact with your pet, including petting, snuggling, being kissed or licked, and sharing food. If you must care for your pet or be around animals while you are sick, wash your hands before and after you interact with pets and wear a face mask. Call ahead before visiting your doctor If you have a medical appointment, call the healthcare provider and tell them that you have or may have COVID-19. This will help the healthcare providers office take steps to keep other people from getting infected or exposed. Wear a face mask You should wear a face mask when you are around other people (e.g., sharing a room or vehicle) or pets and before you enter a healthcare providers office. If you are not able to wear a face mask (for example, because it causes trouble breathing), then people who live with you should not stay in the same room with you, or they should wear a face mask if they enter your room. Cover your coughs and sneezes Cover your mouth and nose with a tissue when you cough or sneeze. Throw used tissues in a lined trash can. Immediately wash your hands with soap and water for at least 20 seconds or, if soap and water are not available, clean your hands with an alcohol-based hand septic tank servicer that contains at least 60% alcohol. Clean your hands often Wash your hands often with soap and water for at least 20 seconds, especially after blowing your nose, coughing, or sneezing; going to the bathroom; and before eating or preparing food. If soap and water are not readily available, use an alcohol-based hand septic tank servicer with at least 60% alcohol, covering all surfaces of your hands and rubbing them together until they feel dry. Soap and water are the best option if hands are visibly dirty. Avoid touching your eyes, nose, and mouth with unwashed hands. Avoid sharing personal household items You should not share dishes, drinking glasses, cups, eating utensils, towels, or bedding with other people or pets in your home. After using these items, they s hould be washed thoroughly with soap and water. Clean all high-touch surfaces everyday High touch surfaces include counters, tabletops, doorknobs, bathroom fixtures, toilets, phones, keyboards, tablets, and bedside tables. Also, clean any surfaces that may have blood, stool, or body fluids on them. Use a household cleaning spray or wipe, according to the label instructions. Labels contain instructions for safe and effective use of the cleaning product including precautions you should take when applying the product, such as wearing gloves and making sure you have good ventilation during use of the product. Monitor your symptoms Seek prompt medical attention if your illness is worsening (e.g., difficulty breathing).Beforeseeking care, call your healthcare provider and tell them that you have, or are being evaluated for, COVID-19. Put on a face mask before you enter the facility. These steps will help the healthcare providers office to keep other people in the office or waiting room from getting infected or exposed. Ask your healthcare provider to call the local or state health department. Persons who are placed under active monitoring or facilitated self- monitoring should follow instructions provided by their local health department or occupational health professionals, as appropriate. When working with your local health department check their available hours. If you have a medical emergency and need to call 911, notify the dispatch personnel that you have, or are being evaluated for COVID-19. If possible, put on a face mask before emergency medical services arrive. Discontinuing home isolation Patients with confirmed COVID-19 should remain under home isolation precautions until the risk of secondary transmission to others is thought to be low. The decision to discontinue home isolation precautions should be made on a [id number] basis, in consultation with healthcare providers and state and [facility] health departments. Coronavirus disease 2019 (COVID-19) is a virus that causes a respiratory illness. It is caused by a coronavirus called 2019 novel coronavirus (2019- nCoV). There are many types of coronavirus. Coronaviruses are a very common cause of bronchitis. They may sometimes cause lung infection(pneumonia). Symptoms can range from mild to severe respiratory illness. These viruses are also foundin some animals. COVID-19 was first found in people in [facility], in late 2019. In 2020, several cases of COVID-19 have been confirmed in the [place] Public health officials are working to find the source. How the virus spreads is not yet fully known. It may be spread through droplets of fluid that a person coughs or sneezes into the air. It may be spread if you touch a surface with virus on it, such as a handle or object, and then touch your mouth. What are the symptoms of COVID-19? Some people have no symptoms or mild symptoms. Symptoms may appear 2 to 14 days after contact with the virus. Symptoms can include: Fever Coughing Trouble breathing What are possible complications from COVID-19? In many cases, this virus can cause infection (pneumonia) in both lungs. In some cases, this can cause . How is COVID-19 diagnosed? Your healthcare provider will ask about your symptoms. He or she will also ask about your recent travel and contact with sick people. Testing for the virus is only done through the [facility]. If yourhealthcare provider thinks you may have COVID- 19, he or she will work with your local health department and the CDC on testing. Follow all instructions from your healthcare provider. COVID-19 is diagnosed by: Nasal and throat swab. A cotton-tipped swab is wiped inside your nose or throat. This is done to check for viruses in your nasal mucus. Sputum culture. A small sample of mucus coughed from your lungs (sputum) is collected if you have a cough. It is checked for the virus. How is COVID-19 treated? There is currently no medicine to treat the virus. Treatment is done to help your body while it fights the virus. This is known as supportive care. Supportive care may include: Pain medicine. These include acetaminophen and ibuprofen. They are used to help ease pain and reduce fever. Bed rest. This helps your body fight the illness. For severe illness, you may need to stay in the hospital. Care during severe illness may include: IV (intravenous) fluids.These are given through a vein to help keep your body hydrated. Oxygen. Supplemental oxygen or ventilation with a breathing machine (ventilator) may be given. This is done to keep enough oxygen in your body. Are you at risk for COVID-19? If youve been to a place where people have been sick with this virus, you are at risk for infection. You are at risk if you: Recently traveled to an affected area Had contact with a sick person who recently traveled to this area Had contact with a person who was diagnosed with COVID-19 How can COVID-19 be prevented? There is no vaccine yet. The best prevention is to not have contact with the virus. The CDC advises that people should not travel to areas where there are COVID-19 outbreaks right now for any reason that is not urgent. To help prevent spreading the infection, wash your hands often, or use an alcohol-basedhand septic tank servicer. If you are in an area with COVID-19: Wash your hands often. Or use an alcohol-based hand septic tank servicer often. Only touch your eyes, nose, or mouth with clean hands. Dont have contact with people who are sick. Follow local instructions about being in public. For example, you may be told to not use public transport for a period of time. Stay away from markets that have live or animals. Wash your hands after touching any animals. Don't touch animals that may be sick. Dont share eating or drinking tools with sick people. Dont kiss someone who is sick. Clean surfaces often with disinfectant. If you were in an area with COVID-19 in the last 14 days: Call your healthcare provider. He or she can talk with local health staff to see what action may be needed. Follow all instructions from your provider. Take your temperature every morning and evening for at least 14 days. This is to check for fever. Keep a record of the readings. Keep watch for symptoms of the virus. Tell your provider right away if you have symptoms. If you were in an area with COVID-19 and have a fever or other symptoms: Dont panic. Keep in mind that other illnesses can cause similar symptoms. Stay away from work, school, and public places. Limit physical contact with family members. Don't kiss anyone or share eating or drinking utensils. Clean surfaces you touch with disinfectant. This is to help prevent the virus from spreading. Call your healthcare provider. Explain that you have been exposed to COVID-19 and have symptoms. Do this before going to any hospital. Wait for instructions. Keep in mind that healthcare staff may wear protective equipment such as masks, gowns, gloves, and eye protection. You may be put in a separate room. This is to prevent the possible virus from spreading. Tell the healthcare staff about recent travel. This includes local travel on public transport. Staff may need to find other people you have been in contact with. Follow all instructions the healthcare staff give you. If you have been diagnosed with COVID-19 Follow all instructions from your healthcare provider. Dont leave your home, except to get medical care. Call your healthcare providers office before going. They can prepare and give you instructions. This will help prevent the virus from spreading. Dont go to work, school, or public areas. Dont use public transport or taxis. Stay away from other people in your home. Have them wear face masks around you. Dont share household items or food. Wear a face mask if you can. This includes at home or in a medical facility. Cover your face with a tissue when you cough or sneeze. Throw the tissue away. Wash your hands. Wash your hands often. Caregivers should: Follow all instructions from healthcare staff. Wear a face mask and protective clothing as advised. Wash hands often. Keep track of the sick persons symptoms. Clean surfaces, fabrics, and laundry thoroughly. Keep other people away from the sick person. When to call your healthcare provider Call your healthcare provider: If youve recently traveled and have symptoms If you have been diagnosed with COVID-19 and your symptoms are worse To learn more To find out more about COVID-19, visit the CDC website at www.cdc.gov/coronavirus/2019-ncov/index.html. [employer]. [address] [place] [address]. All rights reserved. This information is not intended as a substitute for professional medical care. Always follow your healthcare professional's instructions. This information has been adapted from [employer] Pending Studies at Discharge: Yes Studies:: Blood Culture Stand-Alone Forms: My [facility], Smoking Cessation Medications and DC Order Prescriptions: Continued furosemide [Lasix] 40 mg Tablet 40 mg PO QAM RF: 0 acyclovir 400 mg tablet 400 mg PO BID RF: 0 acetaminophen [Tylenol Extra Strength] 500 mg Tablet 1,000 mg PO Q4H PRN (Reason: Pain) RF: 0 betamethasone dipropionate 0.05 % Cream 1 applic TOPICAL BID PRN (Reason: Rash) RF: 0 metformin 500 mg tablet extended release 24 hr 1,000 mg PO QAM RF: 0 spironolactone 50 mg tablet 150 mg PO QAM RF: 0 oxycodone 5 mg tablet 5 mg PO Q4H PRN (Reason: pain) Qty: 20 RF: 0 ondansetron HCl [Zofran] 4 mg tablet 4 mg PO Q8H PRN (Reason: nausea and vomiting) Qty: 15 RF: 0 carvedilol 6.25 mg tablet 6.25 mg PO BID RF: 0 omeprazole 20 mg capsule,delayed release(DR/EC) 20 mg PO QAM RF: 0 potassium chloride [Klor-Con M20] 20 mEq Tablet,Er Particles/Crystals 20 meq PO DAILY Qty: 3 RF: 0 loperamide 2 mg capsule 2 mg PO UD PRN (Reason: Diarrhea) RF: 0 Discontinued doxycycline hyclate 100 mg Capsule 100 mg PO BID Qty: 11 RF: 0 Discharge Orders: Discharge Order (Routine); Ordered 09/23/20 Ordered By: Pierre Vega/Other Patient Handouts: COVID-19 Home Care Admission Data Admit Date/Time: 09/20/20 17:39 Attending Provider: Pierre Pathak Admit Provider: Braxton Escobar Primary Care Provider: Rhina Ibrahim Other Providers: Braxton Escobar ; Linwood Mcclellan ; Alonzo Nicole ; Kalpana Marsh ; Aaron Singh I. ; Albert Egnlish II ; Arti Thurston ; Kristofer Pagan Other Interventions: Discharge Summary Assessment (RN) Last Done: 09/23/20 13:53
== END 2020-09-23 14:31 | disposition home or self-care (01) | DRG 177 ==
LOC: 3E 20:13 → ED 20:13 → 3E 09-19 01:18

== ENCOUNTER 2021-08-11 09:23 | Inpatient (IN) ==
--- NOTE | 2021-08-11 09:37 | Emergency Department Note ---
Impression & Plan SBP (spontaneous bacterial peritonitis), Abdominal pain, Thrombocytopenia, Abdominal ascites, Fever ED Provider Note NAME: JAYCOB URIARTE AGE: 71 SEX: M : 1950 ARRIVES VIA: Walk-In INFORMANT: Patient, ED PROVIDER(S): Cornelio Mars DO CHIEF COMPLAINT: Fever HPI: The patient is a 71-year-old male who is a history of autoimmune cirrhosis who presented to the emergency department for an evaluation of fever. The patie nt's had ongoing symptoms for the last few days. He was vaccinated against COVID-19. He denies having any cough. He has noted some abdominal distention and pain. He states the pain is moderate. He called his sales representative door to door because of the symptoms and had outpatient laboratory studies. He was scheduled for an appointment this morning but was called and told to go to the emergency department for an emergency paracentesis. The patient has noticed no black or bloody bowel movements. He said no vomiting. He denies having any recent trauma. He states he has abdominal swelling as well as leg swelling but this is not new for him. His last paracentesis was in April of this year. ROS: See above HPI for pertinent positives & negatives. A total of 10 systems reviewed and were otherwise negative. PAST MEDICAL HISTORY: See Below PAST SURGICAL HISTORY: See Below FAMILY HISTORY: See Below SOCIAL HISTORY: See Below HOME MEDICATIONS: See Below ALLERGIES: See Below VITALS: See Below PHYSICAL EXAMINATION: GENERAL: Patient is awake alert in no acute distress patient is resting comfortably and showing no signs of anxiety EYES: The conjunctivae are clear. The pupils are round and reactive. EARS, NOSE, MOUTH AND THROAT: The nose is without any evidence of any deformity. Mucous membranes are moist. Tongue is midline. NECK: The neck is nontender and supple. RESPIRATORY: Normal respiratory effort is noted there is no evidence of wheezing rhonchi or rales CARDIOVASCULAR: Regular rate and rhythm noted there no murmurs rubs or gallops normal S1 normal S2. GASTROINTESTINAL: Abdomen was distended. His ascites was noted on palpation. There is no guarding or rigidity. MUSCULOSKELETAL/EXTREMITIES: There is no evidence of gross deformity full range of motion is noted in the hips and shoulders. SKIN: Skin is warm and dry. Pedal edema was noted bilaterally. NEUROLOGIC: Patient is awake alert and oriented x3. MEDICAL DECISION MAKING: The patient is a 71-year-old male who presented to emergency department for fever and abdominal pain. He was sent to the emergency department by his primary sales representative door to door for further evaluation. The patient did not have a positive Covid. No definite source for his fever could be found. Given his abdominal pain this was felt to be secondary to bacterial peritonitis. He was sent to the emergency department by his gastroenterology group and was evaluated in the emergency department by them. They recommended an ultrasound. They also ordered a CAT scan and laboratory studies to evaluate for SBP. They also ordered IV antibiotics to cover the patient for SBP. The patient was feeling somewhat improved on reevaluation. I discussed his case with the on-call [facility] hospitalist group. They have agreed to evaluate the patient in the emergency department for further management and disposition. Triage Nursing notes reviewed. Prior medical records reviewed Vital Signs: reviewed and remarkable for no significant abnormalities Differential diagnosis: Viral syndrome, otitis, pharyngitis, pneumonia, influenza, meningitis, urinary tract infection, sepsis, bacteremia, as well as other pathologies. ER treatment provided: See below Diagnostics interpreted by me: ECG: EKG was obtained in the emergency department. My interpretation is normal sinus rhythm at 86 bpm. There is no ectopy. There is no acute ST segment abnormalities noted. This was compared to a tracing from September 18, 2020. No changes were noted. Cardiac Monitoring: An order was placed for continuous cardiac monitoring. The monitor shows a rate of 90 bpm with sinus rhythm. Laboratory studies: As stated above and show below. Imaging studies: See below Consultation(s): I discussed this case with Kaiden Matos who is covering for [facility] gastroenterology. I discussed this case with Lisa esquivel who was covering for the [facility] Hospitalist group. Past Med/Surg History Medical History Basal cell carcinoma removal from left , left side of face Chest pain (02/11/12) Cirrhosis Esophageal varices Hemolytic anemia History of pulmonary embolus (PE) (02/11/12) Inguinal hernia right side Pancreatitis Portal hypertension Pulmonary embolism bilateral lungs Thrombocytopenia Umbilical hernia Surgical History H/O right inguinal hernia repair Right Open Incarcerated Indirect Hernia Repair, [place] Repair Dr. 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 Required: No Beliefs That Will Affect Care: None marital status: Current Living Situation: Spouse Current Living Situation Comment: - Aaliyah Feels Safe at Home: Yes Assistive Devices: None Allergies Allergies Allergy/AdvReac Type Severity Reaction Status Date / Time No Known Allergies Allergy Verified 08/11/21 10:36 Home Meds Home Medications Medication Instructions Recorded Confirmed carvedilol 6.25 mg tablet 6.25 mg PO BID 07/24/18 08/11/21 omeprazole 20 mg capsule,delayed 20 mg PO QAM 07/24/18 08/11/21 release furosemide 40 mg tablet (Lasix) 40 mg PO QAM 11/12/19 08/11/21 acetaminophen 500 mg tablet 1,000 mg PO Q4H PRN 09/13/20 08/11/21 (Tylenol Extra Strength) acyclovir 400 mg tablet 400 mg PO BID 09/13/20 08/11/21 betamethasone dipropionate 0.05 % 1 applic TOPICAL BID PRN 09/13/20 08/11/21 topical cream metformin 500 mg tablet,extended 1,000 mg PO QAM 09/13/20 08/11/21 release 24 hr spironolactone 50 mg tablet 150 mg PO QAM 09/13/20 08/11/21 Results & Data (ED) Vital Signs Vital Signs - 24 hr 08/11/21 09:26 08/11/21 10:26 08/11/21 13:14 Temperature 37.8 C H 37.4 C Temperature Source Temporal Artery Scan Oral Pulse Rate 93 H Pulse Rate [Finger] 81 90 Pulse Rhythm [Finger] Regular Regular Pulse Strength [Finger] Normal Normal Respiratory Rate 19 20 22 Respiratory Effort / Characteristics Non-Labored Spontaneous Non-Labored Non-Labored Respiratory Depth Normal Normal Normal Respiratory Pattern Regular Regular Blood Pressure 127/72 Blood Pressure [Right Arm] 122/65 115/66 Blood Pressure Mean 90 Blood Pressure Mean [Right Arm] 84 82 Blood Pressure Position Sitting Blood Pressure Position [Right Arm] Sitting Pulse Oximetry 94 95 94 Oxygen Delivery Method Room Air Room Air Room Air Sepsis Recent Fever Within 48 Hours Yes Sepsis New/Unexplained Change in Mental Status No Sepsis Action Taken by Nursing No Action Required 08/11/21 16:01 08/11/21 16:56 Temperature 37.7 C H Temperature Source Oral Pulse Rate Pulse Rate [Finger] 89 86 Pulse Rhythm [Finger] Regular Pulse Strength [Finger] Normal Respiratory Rate 23 21 Respiratory Effort / Characteristics Non-Labored Respiratory Depth Normal Respiratory Pattern Regular Blood Pressure Blood Pressure [Right Arm] 116/51 L 117/50 L Blood Pressure Mean Blood Pressure Mean [Right Arm] 72 72 Blood Pressure Position Blood Pressure Position [Right Arm] Lying Pulse Oximetry 95 93 Oxygen Delivery Method Room Air Room Air Sepsis Recent Fever Within 48 Hours Sepsis New/Unexplained Change in Mental Status Sepsis Action Taken by M[facility] Medications Current Medication List: was personally reviewed by me Laboratory Data Attestation: I reviewed the patient's lab results. Result diagrams: 08/11/21 09:50 08/11/21 09:50 Lab Results 08/11/21 08/11/21 08/11/21 Range/Units 09:50 09:50 09:50 WBC 8.39 (4.8-10.8) K/uL RBC 4.32 L (4.7-6.1) M/uL Hgb 13.1 L (14.0-18.0) g/dL Hct 38.0 L (42-52) % MCV 88.0 (80-100) fL MCH 30.3 (25-34) pg MCHC 34.5 (32-36) g/dL RDW Std Deviation 47.1 H (36.4-46.3) fL RDW Coeff of Bella 14.5 (11.5-14.5) % Plt Count 73 L (130-400) K/uL MPV 9.2 (7.4-10.4) fL Immature Gran % (Auto) 0.4 % Neut % (Auto) 92.2 % Lymph % (Auto) 5.6 % Nicholas % (Auto) 1.3 % Eos % (Auto) 0.5 % Baso % (Auto) 0.0 % Neut # (Auto) 7.74 H (1.4-6.5) K/uL Lymph # (Auto) 0.47 L (1.2-3.4) K/uL Nicholas # (Auto) 0.11 (0.11-0.59) K/uL Eos # (Auto) 0.04 (0-0.5) K/uL Baso # (Auto) 0.00 (0-0.2) K/uL Immature Gran # (Auto) 0.03 H (0.00-0.02) K/uL Ovalocytes 1+ PT (9.0-12.0) Seconds INR (0.9-1.1) APTT (21.0-31.0) Seconds PTT Ratio Sodium 135 L (136-145) mmol/L Potassium 3.6 (3.5-5.1) mmol/L Chloride 102 (98-107) mmol/L Carbon Dioxide 25 (21-32) mmol/L Anion Gap 9.0 (3-11) BUN 13 (7-18) mg/dl Creatinine 1.10 (0.6-1.4) mg/dl Est Cr Clr Drug Dosing 74.5 ml/min Est GFR ( Amer) 76.8 ml/min Est GFR (Non-Af Amer) 66.2 ml/min BUN/Creatinine Ratio 11.8 (10-20) Glucose 170 H (70-99) mg/dl Lactate (0.4-2.0) mmol/L Calcium 8.8 (8.5-10.1) mg/dl Magnesium 1.8 (1.8-2.4) mg/dl Total Bilirubin 3.7 H (0.2-1) mg/dl Direct Bilirubin 1.3 H (0-0.2) mg/dl AST 15 (15-37) U/L ALT 21 (12-78) Alkaline Phosphatase 118 H D (45-117) U/L Troponin I < 0.015 (0-0.045) ng/ml Total Protein 5.8 L (6.4-8.2) gm/dl Albumin 3.1 L (3.4-5.0) gm/dl Globulin 2.7 (2.5-4.0) gm/dl Albumin/Globulin Ratio 1.2 (0.9-2) Lipase 101 (73-393) U/L Procalcitonin 1.24 H (0-0.5) ng/ml Urine Color Urine Appearance (Clear) Urine pH (4.5-7.5) Ur Specific [place] (1.000-1.030) Urine Protein (Negative) Urine Glucose (UA) (Negative) Urine Ketones (Negative) Urine Blood (Negative) Urine Nitrite (Negative) Urine Bilirubin (Negative) Urine Urobilinogen (Negative) Ur Leukocyte Esterase (Negative) Urine WBC (Auto) (0-5) /hpf Urine RBC (Auto) (0-4) /hpf U Hyaline Cast (Auto) (0-5) /lpf U Epithel Cells (Auto) (0-5) /lpf Urine Bacteria (Auto) (Negative) Fluid Neutrophils % % Fluid Lymphocytes % % Fluid Eosinophils % % Fluid Basophils % % Fluid Meso/Macro/Nicholas % % Fluid Comment Peritoneal Color Peritoneal Appearance Peritoneal WBC (0-300) /ul Peritoneal RBC /uL Peritoneal Other Cells % Peritoneal Tot Protein g/dl Peritoneal Albumin g/dl Peritoneal LDH U/L SARS-CoV-2 (PCR) (Negative) Influenza Type A (PCR) (Neg) Influenza Type B (PCR) (Neg) RSV (RT-PCR) (Neg) 08/11/21 08/11/21 08/11/21 Range/Units 09:50 09:50 09:55 WBC (4.8-10.8) K/uL RBC (4.7-6.1) M/uL Hgb (14.0-18.0) g/dL Hct (42-52) % MCV (80-100) fL MCH (25-34) pg MCHC (32-36) g/dL RDW Std Deviation (36.4-46.3) fL RDW Coeff of Bella (11.5-14.5) % Plt Count (130-400) K/uL MPV (7.4-10.4) fL Immature Gran % (Auto) % Neut % (Auto) % Lymph % (Auto) % Nicholas % (Auto) % Eos % (Auto) % Baso % (Auto) % Neut # (Auto) (1.4-6.5) K/uL Lymph # (Auto) (1.2-3.4) K/uL Nicholas # (Auto) (0.11-0.59) K/uL Eos # (Auto) (0-0.5) K/uL Baso # (Auto) (0-0.2) K/uL Immature Gran # (Auto) (0.00-0.02) K/uL Ovalocytes PT 11.6 (9.0-12.0) Seconds INR 1.2 H (0.9-1.1) APTT 26.6 (21.0-31.0) Seconds PTT Ratio 1.0 Sodium (136-145) mmol/L Potassium (3.5-5.1) mmol/L Chloride (98-107) mmol/L Carbon Dioxide (21-32) mmol/L Anion Gap (3-11) BUN (7-18) mg/dl Creatinine (0.6-1.4) mg/dl Est Cr Clr Drug Dosing ml/min Est GFR ( Amer) ml/min Est GFR (Non-Af Amer) ml/min BUN/Creatinine Ratio (10-20) Glucose (70-99) mg/dl Lactate 1.6 (0.4-2.0) mmol/L Calcium (8.5-10.1) mg/dl Magnesium (1.8-2.4) mg/dl Total Bilirubin (0.2-1) mg/dl Direct Bilirubin (0-0.2) mg/dl AST (15-37) U/L ALT (12-78) Alkaline Phosphatase (45-117) U/L Troponin I (0-0.045) ng/ml Total Protein (6.4-8.2) gm/dl Albumin (3.4-5.0) gm/dl Globulin (2.5-4.0) gm/dl Albumin/Globulin Ratio (0.9-2) Lipase (73-393) U/L Procalcitonin (0-0.5) ng/ml Urine Color Urine Appearance (Clear) Urine pH (4.5-7.5) Ur Specific [place] (1.000-1.030) Urine Protein (Negative) Urine Glucose (UA) (Negative) Urine Ketones (Negative) Urine Blood (Negative) Urine Nitrite (Negative) Urine Bilirubin (Negative) Urine Urobilinogen (Negative) Ur Leukocyte Esterase (Negative) Urine WBC (Auto) (0-5) /hpf Urine RBC (Auto) (0-4) /hpf U Hyaline Cast (Auto) (0-5) /lpf U Epithel Cells (Auto) (0-5) /lpf Urine Bacteria (Auto) (Negative) Fluid Neutrophils % % Fluid Lymphocytes % % Fluid Eosinophils % % Fluid Basophils % % Fluid Meso/Macro/Nicholas % % Fluid Comment Peritoneal Color Peritoneal Appearance Peritoneal WBC (0-300) /ul Peritoneal RBC /uL Peritoneal Other Cells % Peritoneal Tot Protein g/dl Peritoneal Albumin g/dl Peritoneal LDH U/L SARS-CoV-2 (PCR) NEGATIVE (Negative) Influenza Type A (PCR) Negative (Neg) Influenza Type B (PCR) Negative (Neg) RSV (RT-PCR) Negative (Neg) 08/11/21 08/11/21 08/11/21 Range/Units 14:00 14:45 14:45 WBC (4.8-10.8) K/uL RBC (4.7-6.1) M/uL Hgb (14.0-18.0) g/dL Hct (42-52) % MCV (80-100) fL MCH (25-34) pg MCHC (32-36) g/dL RDW Std Deviation (36.4-46.3) fL RDW Coeff of Bella (11.5-14.5) % Plt Count (130-400) K/uL MPV (7.4-10.4) fL Immature Gran % (Auto) % Neut % (Auto) % Lymph % (Auto) % Nicholas % (Auto) % Eos % (Auto) % Baso % (Auto) % Neut # (Auto) (1.4-6.5) K/uL Lymph # (Auto) (1.2-3.4) K/uL Nicholas # (Auto) (0.11-0.59) K/uL Eos # (Auto) (0-0.5) K/uL Baso # (Auto) (0-0.2) K/uL Immature Gran # (Auto) (0.00-0.02) K/uL Ovalocytes PT (9.0-12.0) Seconds INR (0.9-1.1) APTT (21.0-31.0) Seconds PTT Ratio Sodium (136-145) mmol/L Potassium (3.5-5.1) mmol/L Chloride (98-107) mmol/L Carbon Dioxide (21-32) mmol/L Anion Gap (3-11) BUN (7-18) mg/dl Creatinine (0.6-1.4) mg/dl Est Cr Clr Drug Dosing ml/min Est GFR ( Amer) ml/min Est GFR (Non-Af Amer) ml/min BUN/Creatinine Ratio (10-20) Glucose (70-99) mg/dl Lactate (0.4-2.0) mmol/L Calcium (8.5-10.1) mg/dl Magnesium (1.8-2.4) mg/dl Total Bilirubin (0.2-1) mg/dl Direct Bilirubin (0-0.2) mg/dl AST (15-37) U/L ALT (12-78) Alkaline Phosphatase (45-117) U/L Troponin I (0-0.045) ng/ml Total Protein (6.4-8.2) gm/dl Albumin (3.4-5.0) gm/dl Globulin (2.5-4.0) gm/dl Albumin/Globulin Ratio (0.9-2) Lipase (73-393) U/L Procalcitonin (0-0.5) ng/ml Urine Color [place] Urine Appearance Clear (Clear) Urine pH 5.0 (4.5-7.5) Ur Specific [place] 1.024 (1.000-1.030) Urine Protein Negative (Negative) Urine Glucose (UA) Negative (Negative) Urine Ketones Trace H (Negative) Urine Blood Negative (Negative) Urine Nitrite Positive A (Negative) Urine Bilirubin 1+ H (Negative) Urine Urobilinogen Negative (Negative) Ur Leukocyte Esterase Trace H (Negative) Urine WBC (Auto) 1-5 (0-5) /hpf Urine RBC (Auto) 0-4 (0-4) /hpf U Hyaline Cast (Auto) 1-5 (0-5) /lpf U Epithel Cells (Auto) 5-10 H (0-5) /lpf Urine Bacteria (Auto) Negative (Negative) Fluid Neutrophils % % Fluid Lymphocytes % % Fluid Eosinophils % % Fluid Basophils % % Fluid Meso/Macro/Nicholas % % Fluid Comment Peritoneal Color Peritoneal Appearance Peritoneal WBC (0-300) /ul Peritoneal RBC /uL Peritoneal Other Cells % Peritoneal Tot Protein g/dl Peritoneal Albumin 1.3 g/dl Peritoneal LDH 53 U/L SARS-CoV-2 (PCR) (Negative) Influenza Type A (PCR) (Neg) Influenza Type B (PCR) (Neg) RSV (RT-PCR) (Neg) 08/11/21 08/11/21 Range/Units 14:45 14:45 WBC (4.8-10.8) K/uL RBC (4.7-6.1) M/uL Hgb (14.0-18.0) g/dL Hct (42-52) % MCV (80-100) fL MCH (25-34) pg MCHC (32-36) g/dL RDW Std Deviation (36.4-46.3) fL RDW Coeff of Bella (11.5-14.5) % Plt Count (130-400) K/uL MPV (7.4-10.4) fL Immature Gran % (Auto) % Neut % (Auto) % Lymph % (Auto) % Nicholas % (Auto) % Eos % (Auto) % Baso % (Auto) % Neut # (Auto) (1.4-6.5) K/uL Lymph # (Auto) (1.2-3.4) K/uL Nicholas # (Auto) (0.11-0.59) K/uL Eos # (Auto) (0-0.5) K/uL Baso # (Auto) (0-0.2) K/uL Immature Gran # (Auto) (0.00-0.02) K/uL Ovalocytes PT (9.0-12.0) Seconds INR (0.9-1.1) APTT (21.0-31.0) Seconds PTT Ratio Sodium (136-145) mmol/L Potassium (3.5-5.1) mmol/L Chloride (98-107) mmol/L Carbon Dioxide (21-32) mmol/L Anion Gap (3-11) BUN (7-18) mg/dl Creatinine (0.6-1.4) mg/dl Est Cr Clr Drug Dosing ml/min Est GFR ( Amer) ml/min Est GFR (Non-Af Amer) ml/min BUN/Creatinine Ratio (10-20) Glucose (70-99) mg/dl Lactate (0.4-2.0) mmol/L Calcium (8.5-10.1) mg/dl Magnesium (1.8-2.4) mg/dl Total Bilirubin (0.2-1) mg/dl Direct Bilirubin (0-0.2) mg/dl AST (15-37) U/L ALT (12-78) Alkaline Phosphatase (45-117) U/L Troponin I (0-0.045) ng/ml Total Protein (6.4-8.2) gm/dl Albumin (3.4-5.0) gm/dl Globulin (2.5-4.0) gm/dl Albumin/Globulin Ratio (0.9-2) Lipase (73-393) U/L Procalcitonin (0-0.5) ng/ml Urine Color Urine Appearance (Clear) Urine pH (4.5-7.5) Ur Specific [place] (1.000-1.030) Urine Protein (Negative) Urine Glucose (UA) (Negative) Urine Ketones (Negative) Urine Blood (Negative) Urine Nitrite (Negative) Urine Bilirubin (Negative) Urine Urobilinogen (Negative) Ur Leukocyte Esterase (Negative) Urine WBC (Auto) (0-5) /hpf Urine RBC (Auto) (0-4) /hpf U Hyaline Cast (Auto) (0-5) /lpf U Epithel Cells (Auto) (0-5) /lpf Urine Bacteria (Auto) (Negative) Fluid Neutrophils % 93 % Fluid Lymphocytes % 0 % Fluid Eosinophils % 0 % Fluid Basophils % 0 % Fluid Meso/Macro/Nicholas % 7 % Fluid Comment Peritoneal Color RED Peritoneal Appearance BLOODY Peritoneal WBC 3270 H (0-300) /ul Peritoneal RBC 62481 /uL Peritoneal Other Cells 0.0 % Peritoneal Tot Protein 2.0 g/dl Peritoneal Albumin g/dl Peritoneal LDH U/L SARS-CoV-2 (PCR) (Negative) Influenza Type A (PCR) (Neg) Influenza Type B (PCR) (Neg) RSV (RT-PCR) (Neg) Administered Medications Albumin Human (Albumin 25% 100 Ml) 25 gm in 100 mls @ 50 mls/hr IV Q2H YEHUDA Stop: 08/11/21 19:24 Last Admin: 08/11/21 16:49 Dose: 50 mls/hr Documented by: [id number] Ceftriaxone Sodium 2,000 mg/ (Dextrose) 70 mls @ 140 mls/hr IV Q24H [facility]; Protocol Stop: 08/21/21 15:29 Last Admin: 08/11/21 16:05 Dose: Not Given Documented by: [id number] Discontinued Medications Ceftriaxone Sodium (Ceftriaxone Sodium 2000mg/70ml D5w) Confirm Administered Dose 2,000 mg IV .Socrative ONE Stop: 08/11/21 15:58 Last Admin: 08/11/21 16:04 Dose: 2,000 mg Documented by: [id number] Imaging Data Radiologist's Impression: KUB X-Ray 08/11/21 09:34 KUB HISTORY: Abdominal distention. fever COMPARISON: KUB 09/18/2020. FINDINGS: A few nondilated gas-filled loops of small and large bowel are seen within the abdomen. No evidence of bowel obstruction. There is hazy appearance to the abdomen with centralization of the small bowel likely representing ascites prior cholecystectomy. No renal calculi. No ureteral calculi. No pneumoperitoneum or pneumatosis. IMPRESSION: 1. No evidence for bowel obstruction. 2. Hazy appearance to the abdomen with centralization of the small bowel likely representing ascites. ACT 112: Negative or not required by law. Electronically signed by: Ted Kincaid M.D. 08/11/2021 10:16 AM Chest X-Ray 08/11/21 09:35 XR chest 1V portable CLINICAL HISTORY: SEPSIS. Fever and abdominal distention COMPARISON STUDY: 09/18/2020 TECHNIQUE: 1 view of the chest FINDINGS: Single frontal view of the chest demonstrates the cardiomediastinal silhouette to be within normal limits. There is a decreased inspiratory effort with elevation of the hemidiaphragms and crowding of the bronchovascular markings at the lung bases and centrally. There has been interval development of a basilar atelectasis, left greater than right. The lungs are clear of alveolar opacities. There is no evidence for pleural effusion. There is no evidence for vascular congestion. There is no acute osseous pathology. IMPRESSION: Decreased inspiration with bibasilar atelectasis, left greater than right. ACT 112: Negative or not required by law. Electronically signed by: Jasbir Ospina M.D. 08/11/2021 10:21 AM Abdomen Ultrasound 08/11/21 10:02 US abdomen limited CLINICAL HISTORY: Upper abdominal pain. Assess for common bile duct obstruction and portal vein thrombosis COMPARISON STUDY: Abdominal ultrasound 04/10/2021. FINDINGS: Nonocclusive thrombus again noted at the portosplenic confluence. This is similar to the prior study. The liver is cirrhotic and demonstrates a heterogeneous echotexture. There is a nodular contour to the surface. No hepatic masses identified. The intrahepatic portal veins are patent. Prior cholecystectomy. The visualized pancreas is unremarkable. Small amount of perihepatic ascites is noted. The common bile measures 7 mm. Survey view of the right kidney shows no hydronephrosis. IMPRESSION: 1. Nonocclusive thrombus again noted at the portosplenic confluence. This is similar to the prior study. 2. Cirrhotic liver with a small amount of perihepatic ascites. 3. Prior cholecystectomy. ACT 112: Negative or not required by law. Electronically signed by: Ted Kincaid M.D. 08/11/2021 4:03 PM Paracentesis Ultrasound 08/11/21 10:02 PROCEDURE: Ultrasound-Guided Diagnostic/Therapeutic Paracentesis CLINICAL HISTORY: ascites and fever MEDICATIONS: Subcutaneous Lidocaine 2%. PROCEDURE: The procedure itself was explained to the patient carefully. The patient was brought into the IR suite and a time-out was performed. The patient was positioned supine on the table. Preliminary ultrasound of the abdomen was performed to determine a safe needle entry site. The most appropriate approach for safe needle entry site was planned and the site for puncture was marked. The right lower quadrant was prepped and draped in the usual sterile fashion. Subcutaneous 2% lidocaine was used for local anesthesia along the expected needle tract. Under ultrasound-guidance, an 5 [place] Yueh needle-sheath was inserted carefully into the peritoneal space towards the abdominal ascites fluid collection. The needle was removed and the sheath was connected to tubing and a vacuum suction device. A total of 4000 cc of serous ascites was aspirated. The sheath was removed and a sterile dressing applied. The patient tolerated the procedure well without immediate complications. Sample of ascites was sent for analysis. IMPRESSION: Ultrasound-guided diagnostic/therapeutic paracentesis. Electronically signed by: Alex Plascencia M.D. 08/11/2021 3:52 PM Portal Vein US 08/11/21 10:57 US duplex portal hepatic veins CLINICAL HISTORY: Follow up portal vein thrombosis. COMPARISON STUDY: Duplex portal venous study 04/10/2021. FINDINGS: Partial thrombus again noted at the portosplenic confluence. This is s imilar to the prior study. The remaining portal veins are patent. Hepatic artery is also patent. IMPRESSION: No significant change in the partial thrombus at the portosplenic confluence. ACT 112: Negative or not required by law. Electronically signed by: Ted Kincaid M.D. 08/11/2021 4:01 PM Discharge Plan Visit Data Chief Complaint: GI Assessment Stated Complaint: MIDDLE ABD PAIN,FEVER,REF BY DOC ED Provider: Cornelio Mars Discharge Problem: SBP (spontaneous bacterial peritonitis), Abdominal pain, Thrombocytopenia, A bdominal ascites, Fever Patient Disposition: Being Evaluated by Hospitalist Forms Stand Alone Forms: [facility] Prescriptions Prescriptions: No Action furosemide [Lasix] 40 mg Tablet 40 mg PO QAM RF: 0 acyclovir 400 mg tablet 400 mg PO BID RF: 0 acetaminophen [Tylenol Extra Strength] 500 mg Tablet 1,000 mg PO Q4H PRN (Reason: Pain) RF: 0 betamethasone dipropionate 0.05 % Cream 1 applic TOPICAL BID PRN (Reason: Rash) RF: 0 metformin 500 mg tablet extended release 24 hr 1,000 mg PO QAM RF: 0 spironolactone 50 mg tablet 150 mg PO QAM RF: 0 carvedilol 6.25 mg tablet 6.25 mg PO BID RF: 0 omeprazole 20 mg capsule,delayed release(DR/EC) 20 mg PO QAM RF: 0 Referrals Referrals: Rhina Ibrahim MD [Primary Care Provider] - Discharge Problem: Abdominal pain Qualifiers: Abdominal location: generalized Qualified Code(s): R10.84 - Generalized abdominal pain Abdominal ascites Qualifiers: Ascites type: other type Qualified Code(s): R18.8 - Other ascites Fever Qualifiers: Fever type: unspecified Qualified Code(s): R50.9 - Fever, unspecified
[2021-08-11 10:13] LABS: Hemoglobin 13.1 g/dL (14.0-18.0); Mean Corpuscular Hemoglobin 30.3 pg (25-34); Mean Corpuscular Hgb Conc 34.5 g/dL (32-36); Mean Platelet Volume 9.2 fL (7.4-10.4); Platelet Count 73 K/uL (130-400); RDW Coefficient of Variation 14.5 % (11.5-14.5); RDW Standard Deviation 47.1 fL (36.4-46.3); Red Blood Count 4.32 M/uL (4.7-6.1); White Blood Count 8.39 K/uL (4.8-10.8)
[2021-08-11 10:16] LABS: INR 1.2 (0.9-1.1); Partial Thromboplastin Time 26.6 Seconds (21.0-31.0); Prothrombin Time 11.6 Seconds (9.0-12.0)
--- NOTE | 2021-08-11 10:17 | XRay Report ---
KUB HISTORY: Abdominal distention. fever COMPARISON: KUB 09/18/2020. FINDINGS: A few nondilated gas-filled loops of small and large bowel are seen within the abdomen. No evidence of bowel obstruction. There is hazy appearance to the abdomen with centralization of the sma ll bowel likely representing ascites prior cholecystectomy. No renal calculi. No ureteral calculi. N o pneumoperitoneum or pneumatosis. IMPRESSION: 1. No evidence for bowel obstruction. 2. Hazy appearance to the abdomen with centralization of the small bowel likely representing ascites. ACT 112: Negative or not required by law. Electronically signed by: Ted Kincaid M.D. 08/11/2021 10:16 AM
--- NOTE | 2021-08-11 10:23 | XRay Report ---
XR chest 1V portable CLINICAL HISTORY: SEPSIS. Fever and abdominal distention COMPARISON STUDY: 09/18/2020 TECHNIQUE: 1 view of the chest FINDINGS: Single frontal view of the chest demonstrates the cardiomediastinal silhouette to be within normal li mits. There is a decreased inspiratory effort with elevation of the hemidiaphragms and crowding of th e bronchovascular markings at the lung bases and centrally. There has been interval development of a basilar atelectasis, left greater than right. The lungs are clear of alveolar opacities. There is no evidence for pleural effusion. There is no evidence for vascular congestion. There is no acute osseou s pathology. IMPRESSION: Decreased inspiration with bibasilar atelectasis, left greater than right. ACT 112: Negative or not required by law. Electronically signed by: Jasbir Ospina M.D. 08/11/2021 10:21 AM
--- NOTE | 2021-08-11 10:26 | Gastrointestinal Consultation ---
Date of Consultation August 11, 2021 Assessment & Plan (1) Cirrhosis: US to check for CBD obstruction and PVT thrombosis. US guided paracentesis, with removal of up to 4L of fluid. Fluid -> lab for cell count and culture. (2) Ascites: (3) Abdominal pain: (4) Fever: CXR, urinalysis with reflex -> micro/culture Blood cx pending (5) Diarrhea: Stool for C-diff, GI pathogens Supervising Physician Co-Signing Physician Notes I performed a history and physical examination of the patient today, including specifically on physical exam - soft abdomen. I have discussed the patient's management with the advanced practitioner. Please refer to the nurse practitioner's note for the documented findings and plan of care. Developed abdominal pain, fever and diarrhea 4 days ago. Today had one solid and one liquid BM. Urine is getting dark. Had Hx of SBO last year with similar presentation. His INR remains normal but his bilirubin is rising. DDx includes SBP, UTI, less likely SBO or cholangitis. Recommend: Urgent paracentesis. CT scan abdomen with PO contrast only. Ultrasound abdomen to check CBD size. Give 50 gm of Albumin due to mild ANASTASIA. Hold diuretics for now. Start IV Ceftriaxone + Flagyl. Stool work up including C.diff. History of Present Illness Reason for Consultation: Abdominal pain and fever in the setting of cirrhosis with ascites. Requesting Physician: Dr. Mars, ED Attending Physician: Dr. Mars (not yet admitted). History of Present Illness Dick Ramirez is a 70 yr old male pt of Dr. Rhina Ibrahim with a hx of autoimmune hemolytic anemia, PE (2011), Bowel obstruction and resection in Sep 2020, GANT cirrhosis w ascites (on furosemide 40 and Spironolactone 150/day), Grade I EV (on Carvidolol 6.25mg BID), portal hypertensive gastropathy, who noticed dark urine last week and held his diuretics for about 3 days, then on Wednesday 08/08 experienced the onset of lower abdomen bloating/fullness pain and had a temp to 101.6. He has continued with the pain and has had an enlarging abdominal girth since that time. He has also had 2-3 loose to liquid BMs/day since Saturday. No blood in BMs. No CP, no dizziness or weakness, no pain on urination. He was directed to the ED for eval. He is awake, alert,oriented, hemodynamically stable. Labs thus far w/o leukocytosis or anemia, INR is 12, No electrolyte derangements, glucose 170. T Bili 3.7, K 1.3, AST 15, ALT 21, Alk Phos 118. COVID is (-). Most recent EGD was 05/29/21 with grade I EV, PHG. Allergies Allergy/AdvReac Type Severity Reaction Status Date / Time No Known Allergies Allergy Verified 08/11/21 10:36 Home Medications Medication Instructions Recorded Confirmed Type carvedilol 6.25 mg tablet 6.25 mg PO BID 07/24/18 08/11/21 History omeprazole 20 mg capsule,delayed 20 mg PO QAM 07/24/18 08/11/21 History release furosemide 40 mg tablet (Lasix) 40 mg PO QAM 11/12/19 08/11/21 History acetaminophen 500 mg tablet 1,000 mg PO Q4H PRN 09/13/20 08/11/21 History (Tylenol Extra Strength) acyclovir 400 mg tablet 400 mg PO BID 09/13/20 08/11/21 History betamethasone dipropionate 0.05 % 1 applic TOPICAL BID PRN 09/13/20 08/11/21 History topical cream metformin 500 mg tablet,extended 1,000 mg PO QAM 09/13/20 08/11/21 History release 24 hr spironolactone 50 mg tablet 150 mg PO QAM 09/13/20 08/11/21 History Patient History Medical History Basal cell carcinoma removal from left , left side of face Chest pain (02/11/12) Cirrhosis Esophageal varices Hemolytic anemia History of pulmonary embolus (PE) (02/11/12) Inguinal hernia right side Pancreatitis Portal hypertension Pulmonary embolism bilateral lungs Thrombocytopenia Umbilical hernia Surgical History H/O right inguinal hernia repair Right Open Incarcerated Indirect Hernia Repair, Bassini Repair Dr. 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 Beliefs That Will Affect Care: None marital status: Current Living Situation: Spouse Current Living Situation Comment: - Aaliyah Feels Safe at Home: Yes Assistive Devices: None Review of Systems Review of Systems: ROS: Gen: Denies weakness, weight loss + fevers Eyes: No eye redness, or pain, no recent vision changes Resp: No SOB, no cough Cardio: No palpitations/irregular beats, no chest pain GI: + enlarging abd girth, diarrhea, lower abdomen pain/fullness/bloating : + dark urine, Denies pain on urination Skin: No jaundice, itching or new rashes Physical Exam Constitutional: well developed, + thin and cooperative; no acute distress Eyes: PERRL, conjunctivae normal, anicteric sclerae ENMT: external ear and nose normal, oropharynx normal Neck: trachea midline, no thyromegaly Respiratory: normal respiratory effort, lungs clear to auscultation Cardiovascular: RRR, no murmur, no edema Gastrointestinal (Abdomen): Percussion/Palpation: + abdomen tender (Mild diffuse adbdominal msk tenderness. No signs of acute abdomen.) and + abdomen rigid; no guarding tense ascites vs. bowel distention; no fluid wave; large mid line ventral hernia Skin: no rashes, warm and dry normal turgor Neurologic: PERRL, EOMI, accommodation nl, no face palsy, no dysarthria awake; not confused Psychiatric: A+Ox3, euthymic affect Orientation: alert, oriented x 3 and cooperative Lymphatic: no cervical or axillary lymphadenopathy Results & Data ([facility]) Vital Signs (Past 12 Hours) Vital Signs Temp Pulse Resp BP Pulse Ox 08/11/21 09:26 37.8 C H 93 H 19 127/72 94 Laboratory Results WBC 8, Hb 13.1, Hct 38 , plts 73, INR 1.2, Na 135, K 3.6, BUN 13, Cr 1.0, glucose 170, COVID (-). Diagnostic Findings KUB: 1. No evidence for bowel obstruction. 2. Hazy appearance to the abdomen with centralization of the small bowel likely representing ascites. CXR: Decreased inspiration with bibasilar atelectasis, left greater than right.
[2021-08-11 10:33] LABS: Eosinophils # (auto) 0.04 K/uL (0-0.5); Eosinophils % (auto) 0.5 %; Immature Granulocytes # (auto) 0.03 K/uL (0.00-0.02); Immature Granulocytes % (auto) 0.4 %; Lymphocytes # (auto) 0.47 K/uL (1.2-3.4); Lymphocytes % (auto) 5.6 %; Monocytes # (auto) 0.11 K/uL (0.11-0.59); Monocytes % (auto) 1.3 %; Neutrophils # (auto) 7.74 K/uL (1.4-6.5); Neutrophils % (auto) 92.2 %; Ovalocytes 1+
[2021-08-11 10:35] LABS: Alanine Aminotransferase 21 (12-78); Albumin Level 3.1 gm/dl (3.4-5.0); Aspartate Aminotransferase 15 U/L (15-37); BUN Creatinine Ratio 11.8 (10-20); Bilirubin Direct 1.3 mg/dl (0-0.2); Blood Urea Nitrogen 13 mg/dl (7-18); Calcium 8.8 mg/dl (8.5-10.1); Carbon Dioxide 25 mmol/L (21-32); Chloride 102 mmol/L (98-107); Creatinine Clr Calc Pharmacy 74.5 ml/min; Est GFR (African American) 76.8 ml/min; Est GFR (Non-African American) 66.2 ml/min; Glucose 170 mg/dl (70-99); Lipase 101 U/L (73-393); Magnesium 1.8 mg/dl (1.8-2.4); Potassium 3.6 mmol/L (3.5-5.1); Sodium 135 mmol/L (136-145)
[2021-08-11 10:40] LABS: Albumin Globulin Ratio 1.2 (0.9-2); Alkaline Phosphatase 118 U/L (45-117); Bilirubin,Total 3.7 mg/dl (0.2-1); Globulin 2.7 gm/dl (2.5-4.0); Total Protein 5.8 gm/dl (6.4-8.2); Troponin I < 0.015 ng/ml (0-0.045)
[2021-08-11 10:53] LABS: Influenza A virus by PCR Negative (Neg); Influenza B virus by PCR Negative (Neg); RSV by PCR Negative (Neg); SARS CoV2 RNA(COVID-19) InHosp NEGATIVE (Negative)
[2021-08-11 15:00] LABS: Appearance Urine Clear (Clear); Bacteria Urine Automated Negative (Negative); Blood Urine Negative (Negative); Color Urine Orange; Glucose Urine UA Negative (Negative); Ketones Urine Trace (Negative); Leukocyte Esterase Urine Trace (Negative); Nitrite Urine Positive (Negative); Protein Urine Negative (Negative); RBC Urine Automated 0-4 /hpf (0-4); Specific Gravity Urine 1.024 (1.000-1.030); Urobilinogen Urine Negative (Negative)
--- NOTE | 2021-08-11 15:10 | Electrocardiogram Report ---
Test Reason : Blood Pressure : / mmHG Vent. Rate : 086 BPM Atrial Rate : 086 BPM P-R Int : 136 ms QRS Dur : 108 ms QT Int : 392 ms P-R-T Axes : 048 -04 037 degrees QTc Int : 469 ms Normal sinus rhythm Poor R wave progression, consider anterior NM vs. lead placement vs. LVH Abnormal ECG When compared with ECG of 18-SEP-2020 20:30, Incomplete right bundle branch block is no longer Present Confirmed by Cornelio Quinonez ([id number]) on 08/11/2021 3:10:37 PM Referred By: Rhina Ibrahim Confirmed By:Cornelio Quinonez
[2021-08-11 15:14] LABS: Bilirubin Urine 1+ (Negative)
[2021-08-11] MEDS ORDERED: cefTRIAXone SODIUM 1,000 MG in DEXTROSE 5% 50 ML IV SCH (15:30)
--- NOTE | 2021-08-11 15:53 | Ultrasound Report ---
PROCEDURE: Ultrasound-Guided Diagnostic/Therapeutic Paracentesis CLINICAL HISTORY: ascites and fever MEDICATIONS: Subcutaneous Lidocaine 2%. PROCEDURE: The procedure itself was explained to the patient carefully. The patient was brought into the IR suite and a time-out was performed. The patient was positioned supine on the table. Preliminar y ultrasound of the abdomen was performed to determine a safe needle entry site. The most appropriat e approach for safe needle entry site was planned and the site for puncture was marked. The right low er quadrant was prepped and draped in the usual sterile fashion. Subcutaneous 2% lidocaine was used f or local anesthesia along the expected needle tract. Under ultrasound-guidance, an 5 Tajik Yueh needle-sheath was inserted carefully into the peritoneal space towards the abdominal ascites fluid collection. The needle was removed and the sheath was conn ected to tubing and a vacuum suction device. A total of 4000 cc of serous ascites was aspirated. The sheath was removed and a sterile dressing applied. The patient tolerated the procedure well without i mmediate complications. Sample of ascites was sent for analysis. IMPRESSION: Ultrasound-guided diagnostic/therapeutic paracentesis. Electronically signed by: Alex Plascencia M.D. 08/11/2021 3:52 PM
[2021-08-11] MEDS ORDERED: cefTRIAXone SODIUM 2000MG/70ML D5W IV ONE (15:57)
--- NOTE | 2021-08-11 16:02 | Ultrasound Report ---
US duplex portal hepatic veins CLINICAL HISTORY: Follow up portal vein thrombosis. COMPARISON STUDY: Duplex portal venous study 04/10/2021. FINDINGS: Partial thrombus again noted at the portosplenic confluence. This is similar to the prior s tudy. The remaining portal veins are patent. Hepatic artery is also patent. IMPRESSION: No significant change in the partial thrombus at the portosplenic confluence. ACT 112: Negative or not required by law. Electronically signed by: Ted Kincaid M.D. 08/11/2021 4:01 PM
--- NOTE | 2021-08-11 16:04 | Ultrasound Report ---
US abdomen limited CLINICAL HISTORY: Upper abdominal pain. Assess for common bile duct obstruction and portal vein throm bosis COMPARISON STUDY: Abdominal ultrasound 04/10/2021. FINDINGS: Nonocclusive thrombus again noted at the portosplenic confluence. This is similar to the pr ior study. The liver is cirrhotic and demonstrates a heterogeneous echotexture. There is a nodular co ntour to the surface. No hepatic masses identified. The intrahepatic portal veins are patent. Prior c holecystectomy. The visualized pancreas is unremarkable. Small amount of perihepatic ascites is noted . The common bile measures 7 mm. Survey view of the right kidney shows no hydronephrosis. IMPRESSION: 1. Nonocclusive thrombus again noted at the portosplenic confluence. This is similar to the prior [place]. 2. Cirrhotic liver with a small amount of perihepatic ascites. 3. Prior cholecystectomy. ACT 112: Negative or not required by law. Electronically signed by: Ted Kincaid M.D. 08/11/2021 4:03 PM
[2021-08-11] MEDS: cefTRIAXone SODIUM 2,000 MG in DEXTROSE 5% 50 ML IV SCH (16:05)
[2021-08-11] MEDS: ALBUMIN 25% 100 mL 25 GM/100 ML VIAL IV SCH ×2 (16:49→18:40)
[2021-08-11 16:54] LABS: Basophils, Fluid 0 %; Eosinophils, Fluid 0 %; Lymphocytes, Fluid 0 %; Mono,Macrophage,Mesothelial 7 %; Neutrophils, Fluid 93 %
[2021-08-11 17:03] LABS: Appearance Peritoneal Fluid BLOODY; Color Peritoneal Fluid RED; RBC Peritoneal Fluid (A) 29000 /uL; WBC Peritoneal Fluid (A) 3270 /ul (0-300)
--- NOTE | 2021-08-11 17:56 | History & Physical Report ---
Date of Service August 11, 2021 Assessment & Plan (1) Ascites: (2) GANT (nonalcoholic steatohepatitis): (3) Cirrhosis: (4) Fever: Plan: -Admit to [facility] -Patient presenting by referral of outpatient GI provider for evaluation of worsening abdominal distention and fever -History of GANT cirrhosis with ascites, esophageal varices, portal hypertension. EGD 05/2021 showed grade 1 esophageal varices and portal hypertensive gastropathy. -Given fever in the setting of worsening ascites, concern for SBP. -Bilirubin 3.7 (worsening for patient), other LFTs WNL. RUQ US shows nonocclusive thrombus again noted at the portosplenic confluence. This is similar to the prior study. - No CBD dilation -Trend LFTs -GI has already evaluated the patient and recommend an urgent paracentesis for which patient underwent for 4 L. -In the ED, patient is running a low-grade fever but otherwise hemodynamically stable and does not appear septic. -IV ceftriaxone, p.o. Flagyl as per GI -Follow cultures -CT ABD/pelvis pending (5) Abnormal urinalysis: Plan: -UA suggest possible UTI -On IV ceftriaxone as above (6) Thrombocytopenia: Plan: -Chronic due to underlying cirrhosis and history of acute hemolytic anemia -Platelet count 73K, at baseline (7) DM type 2 (diabetes mellitus, type 2): Plan: -Hgb A1c 6.8 09/2020 -Hold metformin and utilize NovoLog per protocol while hospitalized (8) DVT prophylaxis: Plan: -SCDs due to thrombocytopenia History of Present Illness Chief Complaint: Abdominal distention, fever Primary Care Provider: Rhina Ibrahim MD 71-year-old male with PMH GANT cirrhosis with portal hypertension, esophageal varices, ascites; history of autoimmune hemolytic anemia, and other problems listed below who presents to the ED by referral of outpatient GI provider for evaluation of worsening abdominal distention and fever. Patient reports that about 4 days ago, he noted increasing abdominal distention. He also describes early satiety. He has been running intermittent fevers of as high as 101.6. He reports generalized abdominal pain at times. He reports diarrhea which seems to be a chronic issue. Noted over the past few days that his urine has been darker in color. He denies dysuria. No chest pain or shortness of breath. Reports some worsening lower extremity edema. Denies lightheadedness, dizziness, diaphoresis, syncopal events. In the ED, labs show bilirubin 3.7 (patient typically is between 1.0-1.5). UA suggestive of possible UTI. GI has already evaluated the patient and recommended urgent paracentesis which patient has had completed for 4 L. RUQ US shows Nonocclusive thrombus again noted at the portosplenic confluence. This is similar to the prior study. Patient received albumin post paracentesis. He also received IV ceftriaxone and p.o. metronidazole. Allergies Allergy/AdvReac Type Severity Reaction Status Date / Time No Known Allergies Allergy Verified 08/11/21 10:36 Home Medications Medication Instructions Recorded Confirmed Type carvedilol 6.25 mg tablet 6.25 mg PO BID 07/24/18 08/11/21 History omeprazole 20 mg capsule,delayed 20 mg PO QAM 07/24/18 08/11/21 History release furosemide 40 mg tablet (Lasix) 40 mg PO QAM 11/12/19 08/11/21 History acetaminophen 500 mg tablet 1,000 mg PO Q4H PRN 09/13/20 08/11/21 History (Tylenol Extra Strength) acyclovir 400 mg tablet 400 mg PO BID 09/13/20 08/11/21 History betamethasone dipropionate 0.05 % 1 applic TOPICAL BID PRN 09/13/20 08/11/21 History topical cream metformin 500 mg tablet,extended 1,000 mg PO QAM 09/13/20 08/11/21 History release 24 hr spironolactone 50 mg tablet 150 mg PO QAM 09/13/20 08/11/21 History Past Med/Surg History Medical History (Updated 08/11/21 @ 18:03 by TREVIN Waters) Autoimmune hemolytic anemia (02/11/12) Basal cell carcinoma removal from left , left side of face Cirrhosis COVID-19 virus infection DM type 2 (diabetes mellitus, type 2) Esophageal varices History of pulmonary embolus (PE) (02/11/12) Inguinal hernia right side GANT (nonalcoholic steatohepatitis) Portal hypertension Pulmonary embolism bilateral lungs Thrombocytopenia Umbilical hernia Surgical History H/O right inguinal hernia repair Right Open Incarcerated Indirect Hernia Repair, Bassini Repair Dr. 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 Beliefs That Will Affect Care: None marital status: Current Living Situation: Spouse Current Living Situation Comment: - Aaliyah Other Information That Helps Us Care for You: No Feels Safe at Home: Yes Safety Concerns: Feels Safe At This Time Assistive Devices: Glasses Review of Systems Review of Systems: ROS per HPI, all other systems reviewed and negative Physical Exam Constitutional: WD/WN, vitals as above Eyes: PERRL, conjunctivae normal, anicteric sclerae ENMT: external ear and nose normal, oropharynx normal Respiratory: normal respiratory effort, lungs clear to auscultation Cardiovascular: Rate/Rhythm: regular rate and regular rhythm Vessels: normal peripheral pulses Extremities: + edema (Trace edema BLE) Gastrointestinal (Abdomen): Inspection/Auscultation: + abdomen distended (Semifirm) and normal bowel sounds Percussion/Palpation: + ascites; abdomen nontender and no hepatosplenomegaly Musculoskeletal: no cyanosis or clubbing, extremities motor strength 5/5 Skin: no rashes, warm and dry Neurologic: PERRL, EOMI, accommodation nl, no face palsy, no dysarthria Psychiatric: A+Ox3, euthymic affect Results & Data Results & Data ([facility]) Vital Signs (Past 12 Hours) Vital Signs Temp Pulse Pulse Resp BP BP Pulse Ox 08/11/21 16:56 37.7 C H 86 21 117/50 L 93 08/11/21 16:01 89 23 116/51 L 95 08/11/21 13:14 90 22 115/66 94 08/11/21 10:26 37.4 C 81 20 122/65 95 08/11/21 09:26 37.8 C H 93 H 19 127/72 94 Laboratory Results Short CBC 08/11/21 Range/Units 09:50 WBC 8.39 (4.8-10.8) K/uL Hgb 13.1 L (14.0-18.0) g/dL Hct 38.0 L (42-52) % Plt Count 73 L (130-400) K/uL BMP 08/11/21 09:50 Sodium 135 L Potassium 3.6 Chloride 102 Carbon Dioxide 25 BUN 13 Creatinine 1.10 Glucose 170 H Calcium 8.8 Cardiac Enzymes 08/11/21 Range/Units 09:50 Troponin I < 0.015 (0-0.045) ng/ml Liver Function 08/11/21 Range/Units 09:50 Total Bilirubin 3.7 H (0.2-1) mg/dl Direct Bilirubin 1.3 H (0-0.2) mg/dl AST 15 (15-37) U/L ALT 21 (12-78) Alkaline Phosphatase 118 H D (45-117) U/L Albumin 3.1 L (3.4-5.0) gm/dl Urine 08/11/21 Range/Units 14:00 Urine Color [place] Urine Appearance Clear (Clear) Urine pH 5.0 (4.5-7.5) Ur Specific Early 1.024 (1.000-1.030) Urine Protein Negative (Negative) Urine Glucose (UA) Negative (Negative) Diagnostic Findings KUB X-Ray 08/11/21 09:34 KUB HISTORY: Abdominal distention. fever COMPARISON: KUB 09/18/2020. FINDINGS: A few nondilated gas-filled loops of small and large bowel are seen within the abdomen. No evidence of bowel obstruction. There is hazy appearance to the abdomen with centralization of the small bowel likely representing ascites prior cholecystectomy. No renal calculi. No ureteral calculi. No pneumoperitoneum or pneumatosis. IMPRESSION: 1. No evidence for bowel obstruction. 2. Hazy appearance to the abdomen with centralization of the small bowel likely representing ascites. ACT 112: Negative or not required by law. Electronically signed by: Ted Kincaid M.D. 08/11/2021 10:16 AM Chest X-Ray 08/11/21 09:35 XR chest 1V portable CLINICAL HISTORY: SEPSIS. Fever and abdominal distention COMPARISON STUDY: 09/18/2020 TECHNIQUE: 1 view of the chest FINDINGS: Single frontal view of the chest demonstrates the cardiomediastinal silhouette to be within normal limits. There is a decreased inspiratory effort with elevation of the hemidiaphragms and crowding of the bronchovascular markings at the lung bases and centrally. There has been interval development of a basilar atelectasis, left greater than right. The lungs are clear of alveolar opacities. There is no evidence for pleural effusion. There is no evidence for vascular congestion. There is no acute osseous pathology. IMPRESSION: Decreased inspiration with bibasilar atelectasis, left greater than right. ACT 112: Negative or not required by law. Electronically signed by: Jasbir Ospina M.D. 08/11/2021 10:21 AM Abdomen Ultrasound 08/11/21 10:02 US abdomen limited CLINICAL HISTORY: Upper abdominal pain. Assess for common bile duct obstruction and portal vein thrombosis COMPARISON STUDY: Abdominal ultrasound 04/10/2021. FINDINGS: Nonocclusive thrombus again noted at the portosplenic confluence. This is similar to the prior study. The liver is cirrhotic and demonstrates a heterogeneous echotexture. There is a nodular contour to the surface. No hepatic masses identified. The intrahepatic portal veins are patent. Prior cholecystectomy. The visualized pancreas is unremarkable. Small amount of perihepatic ascites is noted. The common bile measures 7 mm. Survey view of the right kidney shows no hydronephrosis. IMPRESSION: 1. Nonocclusive thrombus again noted at the portosplenic confluence. This is si milar to the prior study. 2. Cirrhotic liver with a small amount of perihepatic ascites. 3. Prior cholecystectomy. ACT 112: Negative or not required by law. Electronically signed by: Ted Kincaid M.D. 08/11/2021 4:03 PM Paracentesis Ultrasound 08/11/21 10:02 PROCEDURE: Ultrasound-Guided Diagnostic/Therapeutic Paracentesis CLINICAL HISTORY: ascites and fever MEDICATIONS: Subcutaneous Lidocaine 2%. PROCEDURE: The procedure itself was explained to the patient carefully. The patient was brought into the IR suite and a time-out was performed. The patient was positioned supine on the table. Preliminary ultrasound of the abdomen was performed to determine a safe needle entry site. The most appropriate approach for safe needle entry site was planned and the site for puncture was marked. The right lower quadrant was prepped and draped in the usual sterile fashion. Subcutaneous 2% lidocaine was used for local anesthesia along the expected needle tract. Under ultrasound-guidance, an 5 Sinhala Yueh needle-sheath was inserted carefully into the peritoneal space towards the abdominal ascites fluid collection. The needle was removed and the sheath was connected to tubing and a vacuum suction device. A total of 4000 cc of serous ascites was aspirated. The sheath was removed and a sterile dressing applied. The patient tolerated the procedure well without immediate complications. Sample of ascites was sent for analysis. IMPRESSION: Ultrasound-guided diagnostic/therapeutic paracentesis. Electronically signed by: Alex Plascencia M.D. 08/11/2021 3:52 PM Portal Vein US 08/11/21 10:57 US duplex portal hepatic veins CLINICAL HISTORY: Follow up portal vein thrombosis. COMPARISON STUDY: Duplex portal venous study 04/10/2021. FINDINGS: Partial thrombus again noted at the portosplenic confluence. This is similar to the prior study. The remaining portal veins are patent. Hepatic artery is also patent. IMPRESSION: No significant change in the partial thrombus at the portosplenic confluence. ACT 112: Negative or not required by law. Electronically signed by: Ted Kincaid M.D. 08/11/2021 4:01 PM Code Status & VTE Plan Code Status Patient is a full code as per my discussion with him. VTE Prophylaxis Plan VTE Prophylaxis will be ordered: Yes Supervising Physician Co-Signing Physician Notes Attending addendum The patient was seen and examined in medical floor He has been complaining of increasing abdominal pain for the last day or 2 associated with some pain and diarrhea Is a status post paracentesis and has been on intravenous antibiotic with ceftriaxone and Flagyl Has been feeling much better since admission On examination Noted to have tachycardia and also febrile during my examination Chest-clear Abdomen-distended, soft and mildly tender Extremities-negative for any edema His admission labs, imaging studies reviewed Has cirrhosis with ascites and possible SBP Status post paracentesis and has been on intravenous ceftriaxone and Flagyl GI on board Agree with assessment plan as outlined above by Lisa suarez
[2021-08-11] MEDS ORDERED: ACETAMINOPHEN 325 MG TAB PO PRN (18:12)
--- NOTE | 2021-08-11 18:33 | CT Scan Report ---
ABDOMEN AND PELVIS CT WITH ORAL CONTRAST CT DOSE: 906.88 mGy.cm HISTORY: Acute generalized abdominal pain with possible bowel obstruction abdominal distention, r/o bowel obstruction. TECHNIQUE: Multiaxial CT images of the abdomen and pelvis were performed following the use of oral co ntrast. A dose lowering technique was utilized adhering to the principles of ALARA. COMPARISON STUDY: CT abdomen and pelvis 09/19/2020 FINDINGS: The imaged inferior cardiac chambers are upper limits of normal in size. Intralobular septa l thickening with bibasilar groundglass densities suggestive of pulmonary edema. The previously descr ibed triangular 2.4 cm left basilar airspace opacity has resolved in the interval. There is linear sc arring/atelectasis of the left lung base. 5 mm solid nodule left lower lobe is present on image 21 of series 3 which appears stable from prior. No pneumatosis or pneumoperitoneum. The spleen is enlarged measuring up to 20 cm in length. Unremarkable pancreas and adrenal glands. Cho lecystectomy. Cirrhotic liver. No hepatic mass identified. Unremarkable kidneys. No hydronephrosis. P rostamegaly with mild urinary bladder wall thickening. Atherosclerosis of the aorta without aneurysm. Retroperitoneal adenopathy is noted measuring up to 1.5 cm has progressed from prior. Enlarged perip ortal lymph nodes are also present. Periesophageal and upper abdominal varices redemonstrated. No bowel obstruction identified. There is circumferential wall thickening noted within the colon, most pronounced in the sigmoid and rectum. Pe rirectal varices and stranding is redemonstrated. Moderate abdominal pelvic ascites. Normal appendix. Colonic diverticulosis. Degenerative changes of the spine, pelvis and hips. No acute fracture or deloris picious bone lesion identified. Transitional lumbosacral anatomy. IMPRESSION: 1. Cirrhotic liver disease with stigmata of portal venous hypertension including splenomegaly, modera te abdominopelvic ascites and varices. 2. Nonspecific retroperitoneal and periportal adenopathy. 3. Trace pleural effusions with suggested pulmonary edema. 4. No bowel obstruction. 5. Wall thickening of the colon, most pronounced within the sigmoid and rectum may be secondary to po rtal colopathy versus a nonspecific proctocolitis. 6. Colonic diverticulosis. 7. Additional findings as above. ACT 112: Negative or not required by law. The above report was generated using voice recognition software. It may contain grammatical, syntax o r spelling errors. Electronically signed by: Abiel Leon M.D. 08/11/2021 6:32 PM
[2021-08-11] MEDS: metroNIDAZOLE 500 MG TAB PO SCH (22:21)
[2021-08-11] MEDS: carvediloL 6.25 MG TAB PO SCH (22:22)
[2021-08-11] MEDS: ACYCLOVIR 400 MG TAB PO SCH (22:22)
[2021-08-11] MEDS ORDERED: VANCOMYCIN CONSULT ACTIVE PRN (23:14)
[2021-08-11 23:16] LABS: Adenovirus F 40/41 PCR Not Detected (NotDetected); Astrovirus PCR Not Detected (NotDetected); Campylobacter PCR Not Detected (NotDetected); Clostridium diff Toxin A/B PCR Not Detected (NotDetected); Cryptosporidium PCR Not Detected (NotDetected); Cyclospora cayetanensis PCR Not Detected (NotDetected); Entamoeba histolytica PCR Not Detected (NotDetected); Enteroaggregative E.coli(EAEC) Not Detected (NotDetected); Enteropathogenic E.coli (EPEC) Not Detected (NotDetected); Enterotoxigenic E.coli (ETEC) Not Detected (NotDetected); Giardia lamblia PCR Not Detected (NotDetected); Norovirus GI/GII PCR Not Detected (NotDetected); Plesiomonas shigelloides PCR Not Detected (NotDetected); Rotavirus A PCR Not Detected (NotDetected); Salmonella PCR Not Detected (NotDetected); Sapovirus PCR Not Detected (NotDetected); Shiga-like Toxin E.coli (STEC) Not Detected (NotDetected); Shigella/Enteroinvasive E.coli Not Detected (NotDetected); Vibrio cholerae PCR Not Detected (NotDetected); Vibrio species PCR Not Detected (NotDetected); Yersinia enterocolitica PCR Not Detected (NotDetected)
[2021-08-12] MEDS ORDERED: VANCOMYCIN HCL 2,000 MG in SODIUM CHLORIDE 0.9% 500 ML IV SCH (01:30)
--- NOTE | 2021-08-12 04:52 | Pharmacy Report ---
Pharmacy Abx Initial Consult - Date of Service August 12, 2021 - Pharmacy Dosing Scope Date of Consult: 08/12/21 Consultation requested by: Dr. Urias Pharmacy is consulted to initiate Vancomycin IV dosing therapy, order appropriate labs and adjust drug dose/frequency. - Subjective The patient is a 71 year old M admitted on 08/11/21 15:34. - Objective Height: 6 ft Weight: 94.8 kg Vital Signs (Past 12hrs): Vital Signs Temp Pulse Pulse Resp BP BP Pulse Ox 08/11/21 21:58 37.6 C H 08/11/21 21:55 38.2 C H 86 16 121/56 L 93 08/11/21 18:19 39.5 C H 100 H 20 137/63 95 08/11/21 16:56 37.7 C H 86 21 117/50 L 93 Lab Results (24hrs): Laboratory Tests (24 Hours) 08/11/21 08/11/21 08/11/21 09:50 09:50 09:50 WBC 8.39 Neut # (Auto) 7.74 H Creatinine 1.10 Est Cr Clr Drug Dosing 74.5 Procalcitonin 1.24 H Micro Results: 08/11/21 14:45 Gram Stain - Pending Peritoneal Fluid Aerobic and Anaerobic Culture - Pending - Assessment & Plan Assessment 71 year old M receiving Vancomycin/Rocephin/Flagyl for bacteremia. Plan Vancomycin IV * Estimated PK Parameters: Vd 0.7 L/kg, August 0.065 hr-1, t1/2 ~10 hr * Loading dose: 2000mg (20 mg/kg) * Maintenance dose: 1000mg IV (~10 mg/kg) every 12 hours * Goal trough level for bacteremia : 15 to 20 mcg/mL Pharmacy will continue to follow and will adjust dose/frequency as necessary. He bains
[2021-08-12 06:37] LABS: Albumin Level 2.8 gm/dl (3.4-5.0); BUN Creatinine Ratio 12.7 (10-20); Calcium 8.6 mg/dl (8.5-10.1); Creatinine Clr Calc Pharmacy 78.6 ml/min; Est GFR (African American) 86.2 ml/min; Est GFR (Non-African American) 74.3 ml/min; Potassium 3.2 mmol/L (3.5-5.1)
[2021-08-12 06:45] LABS: Albumin Globulin Ratio 1.3 (0.9-2); Bilirubin,Total 2.6 mg/dl (0.2-1); Globulin 2.1 gm/dl (2.5-4.0); Total Protein 4.9 gm/dl (6.4-8.2)
[2021-08-12] MEDS: ACYCLOVIR 400 MG TAB PO SCH ×2 (08:34→20:11)
[2021-08-12] MEDS: carvediloL 6.25 MG TAB PO SCH ×2 (08:34→20:10)
[2021-08-12] MEDS: metroNIDAZOLE 500 MG TAB PO SCH ×3 (08:34→20:10)
[2021-08-12] MEDS: PANTOprazole 40 MG TAB PO SCH (08:34)
[2021-08-12] MEDS ORDERED: POTASSIUM CHLORIDE CRTAB 20 MEQ TABCR PO STA (09:31)
[2021-08-12] MEDS: VANCOMYCIN HCL 1,000 MG in SODIUM CHLORIDE 0.9% 250 ML IV SCH (13:38)
--- NOTE | 2021-08-12 14:58 | Gastroenterology Progress Note ---
Date of Service August 12, 2021 Assessment & Plan (1) Cirrhosis: (2) Portal hypertension: (3) Esophageal varices: (4) Ascites: (5) SBP (spontaneous bacterial peritonitis): Plan: Receiving Ceftriaxone 2g IV q24 hours Receiving Flagyl 500 mg PO TID Receiving Vancomycin 1g IV q12 hours Discussed with TREVIN Waters with hospitalist team, and would recommend albumin 1.5 g/kg IV on day 1 (yesterday) and 1 g/kg IV on day 3 to avoid HRS Will need repeat paracentesis on Day 3 to reevaluate progress of SBP Continue supportive care and other medical management as per the primary team. Admission and Anticipated Discharge Date Admission Date: August 11, 2021 Subjective Feeling slightly improved today. He denies any fevers, chills, nausea, vomiting, or abdominal pain at present. He had a BM last night, non-bloody. He admits that he started to become ill on Saturday, but did not present to the ER until yesterday. He denies any further complaints. Review of Systems Constitutional: as per Subjective / HPI Eyes: as per Subjective / HPI Ear, Nose, Mouth, Throat: as per Subjective / HPI Respiratory: as per Subjective / HPI Cardiovascular: as per Subjective / HPI Gastrointestinal: as per Subjective / HPI Musculoskeletal: as per Subjective / HPI Integumentary: as per Subjective / HPI Neurologic: as per Subjective / HPI Psychiatric: as per Subjective / HPI Endocrine: as per Subjective / HPI Hematologic / Lymphatic: as per Subjective / HPI Allergy / Immunological: as per Subjective / HPI Physical Exam Constitutional: + ill appearing (Chronic ); no acute distress Eyes: + anicteric sclerae Respiratory: normal respiratory effort, lungs clear to auscultation Cardiovascular: RRR, no murmur, no edema Gastrointestinal (Abdomen): Inspection/Auscultation: + abdomen distended and normal bowel sounds Percussion/Palpation: abdomen soft and + fluid wave; abdomen nontender, no guarding and abdomen not rigid Psychiatric: A+Ox3, euthymic affect Results & Data Results & Data ([facility]) Vital Signs (Past 12 Hours) Vital Signs Temp Pulse Resp BP Pulse Ox 08/12/21 07:45 36.8 C 74 16 114/55 L 94 08/12/21 05:02 36.7 C PG Care Time/CCT Total # of Minutes Spent Total Time Spent with Patient: Total time spent is greater than 50% in coordination of care (as documented) at patient's floor/unit and/or counseling patient: Coding Level of Care Code 04938 Subseq Hosp Care Lvl 3 Diagnoses Cirrhosis K74.60 Portal hypertension K76.6 Esophageal varices I85.00 Ascites R18.8 SBP (spontaneous bacterial peritonitis) K65.2
--- NOTE | 2021-08-12 16:27 | Hospitalist Progress Note ---
Date of Service August 12, 2021 Assessment & Plan (1) Ascites: (2) GANT (nonalcoholic steatohepatitis): (3) Cirrhosis: (4) Fever: Plan: -Patient presenting by referral of outpatient GI provider for evaluation of worsening abdominal distention and fever -History of GANT cirrhosis with ascites, esophageal varices, portal hypertension. EGD 05/2021 showed grade 1 esophageal varices and portal hypertensive gastropathy. -Given fever in the setting of worsening ascites, concern for SBP. -Bilirubin 3.7 (worsening for patient), other LFTs WNL. RUQ US shows nonocclusive thrombus again noted at the portosplenic confluence. This is similar to the prior study. - No CBD dilation -Trend LFTs -GI has already evaluated the patient and recommend an urgent paracentesis for which patient underwent for 4 L. -In the ED, patient is running a low-grade fever but otherwise hemodynamically stable and does not appear septic. -IV ceftriaxone, p.o. Flagyl as per GI -Noted to have positive blood culture with alpha streptococci and further sensitivity pending -IV vancomycin has been added Spontaneous bacterial peritonitis Gram stain of the aspirate was negative but white cell count was elevated to 3270 He has been on intravenous ceftriaxone and Flagyl Appreciate GI input and recommendation Missed the recommended dose of albumin on 08/11/2021 but will receive 1 mg/kg of albumin 25% tomorrow to avoid hepatorenal syndrome as per GI recommendation Bacteremia Due to alpha streptococci-further sensitivities pending Has been started on intravenous vancomycin (5) Abnormal urinalysis: Plan: -UA suggest possible UTI-doubt any UTI -On IV ceftriaxone as above (6) Thrombocytopenia: Plan: -Chronic due to underlying cirrhosis and history of acute hemolytic anemia -Platelet count 73K, at baseline (7) DM type 2 (diabetes mellitus, type 2): Plan: -Hgb A1c 6.8 09/2020 -Hold metformin and utilize NovoLog per protocol while hospitalized (8) DVT prophylaxis: Plan: -SCDs due to thrombocytopenia Admission and Anticipated Discharge Date Admission Date: August 11, 2021 Subjective 08/12/2021 The patient was seen and examined in medical floor He has been feeling much better and denies any increasing abdominal distention or discomfort and no more fever He has been feeling better since admission Review of Systems Review of Systems: All systems reviewed and are unremarkable except as noted below Gastrointestinal: Abdominal distention without discomfort and/or pain Physical Exam Physical Exam: Lying in bed comfortably Constitutional: well developed, well nourished and + obese; not ill appearing Eyes: PERRL, conjunctivae normal, anicteric sclerae ENMT: external ear and nose normal, oropharynx normal Neck: trachea midline, no thyromegaly Respiratory: no respiratory distress Auscultation: lungs clear to auscultation bilaterally Cardiovascular: Rate/Rhythm: regular rate and regular rhythm; not tachycardic Heart Sounds: normal S1 and normal S2; no murmur Extremities: no edema Gastrointestinal (Abdomen): Inspection/Auscultation: + abdomen distended (Soft) and normal bowel sounds Percussion/Palpation: + abdomen tender (Minimally tender) and abdomen soft Musculoskeletal: No acute arthritis in any joint Neurologic: Alert, awake and oriented x3. No focal sensory and motor deficit appreciated Lymphatic: no cervical or axillary lymphadenopathy Results & Data Results & Data ([facility]) Vital Signs (Past 12 Hours) Vital Signs Temp Pulse Resp BP Pulse Ox 08/12/21 15:00 36.8 C 65 16 109/57 L 95 08/12/21 07:45 36.8 C 74 16 114/55 L 94 08/12/21 05:02 36.7 C Laboratory Results BMP 08/12/21 05:40 Sodium 134 L Potassium 3.2 L Chloride 103 Carbon Dioxide 26 BUN 13 Creatinine 1.00 Glucose 131 H Calcium 8.6 Liver Function 08/12/21 Range/Units 05:40 Total Bilirubin 2.6 H (0.2-1) mg/dl AST 7 L (15-37) U/L ALT 14 (12-78) Alkaline Phosphatase 81 (45-117) U/L Albumin 2.8 L (3.4-5.0) gm/dl Medications Administered Current Inpatient Medications Acetaminophen (Acetaminophen 325 Mg Tab) 650 mg PO Q4H PRN PRN Reason: pain/fever Stop: 09/10/21 18:11 Acyclovir (Acyclovir 400 Mg Tab) 400 mg PO BID [facility] Stop: 09/10/21 20:59 Last Admin: 08/12/21 08:34 Dose: 400 mg Documented by: Carvedilol (Carvedilol 6.25 Mg Tab) 6.25 mg PO BID [facility] Stop: 09/10/21 20:59 Last Admin: 08/12/21 08:34 Dose: 6.25 mg Documented by: Ceftriaxone Sodium 2,000 mg/ (Dextrose) 70 mls @ 140 mls/hr IV Q24H [facility]; Protocol Stop: 08/21/21 15:29 Last Admin: 08/11/21 16:05 Dose: Not Given Documented by: Vancomycin HCl 1,000 mg/ (Sodium Chloride) 270 mls @ 200 mls/hr IV Q12H [facility]; Protocol Stop: 08/26/21 13:59 Last Infusion: 08/12/21 14:59 Dose: Infused Documented by: Metronidazole (Metronidazole 500 Mg Tab) 500 mg PO TID [facility]; Protocol Stop: 08/21/21 20:59 Last Admin: 08/12/21 13:38 Dose: 500 mg Documented by: Miscellaneous Information (Vancomycin Consult Active) 1 ea N/A UD PRN PRN Reason: Consult Stop: 09/10/21 23:13 Pantoprazole Sodium (Pantoprazole 40 Mg Tab) 40 mg PO QAM [facility] Stop: 09/11/21 08:59 Last Admin: 08/12/21 08:34 Dose: 40 mg Documented by:
[2021-08-12] MEDS: cefTRIAXone SODIUM 2,000 MG in DEXTROSE 5% 50 ML IV SCH (16:29)
[2021-08-13] MEDS: VANCOMYCIN HCL 1,000 MG in SODIUM CHLORIDE 0.9% 250 ML IV SCH (02:48)
[2021-08-13 05:44] LABS: Hematocrit (blood only) 32.9 % (42-52); Hemoglobin 11.2 g/dL (14.0-18.0); Mean Corpuscular Hemoglobin 29.7 pg (25-34); Mean Corpuscular Volume 87.3 fL (80-100); RDW Coefficient of Variation 14.6 % (11.5-14.5); RDW Standard Deviation 46.4 fL (36.4-46.3); Red Blood Count 3.77 M/uL (4.7-6.1); White Blood Count 3.45 K/uL (4.8-10.8)
[2021-08-13 06:13] LABS: Albumin Globulin Ratio 1.2 (0.9-2); Albumin Level 2.7 gm/dl (3.4-5.0); BUN Creatinine Ratio 14.5 (10-20); Bilirubin,Total 1.2 mg/dl (0.2-1); Calcium 8.5 mg/dl (8.5-10.1); Creatinine Clr Calc Pharmacy 93.6 ml/min; Est GFR (African American) 100.7 ml/min; Est GFR (Non-African American) 86.9 ml/min; Globulin 2.2 gm/dl (2.5-4.0); Phosphorus 2.4 mg/dl (2.5-4.9); Potassium 3.7 mmol/L (3.5-5.1); Total Protein 4.9 gm/dl (6.4-8.2)
[2021-08-13 06:56] LABS: Mean Platelet Volume 9.3 fL (7.4-10.4); Platelet Count 79 K/uL (130-400)
[2021-08-13 07:15] LABS: Eosinophils # (auto) 0.11 K/uL (0-0.5); Eosinophils % (auto) 3.2 %; Immature Granulocytes # (auto) 0.01 K/uL (0.00-0.02); Immature Granulocytes % (auto) 0.3 %; Lymphocytes # (auto) 0.29 K/uL (1.2-3.4); Lymphocytes % (auto) 8.4 %; Monocytes # (auto) 0.22 K/uL (0.11-0.59); Monocytes % (auto) 6.4 %; Neutrophils # (auto) 2.82 K/uL (1.4-6.5); Neutrophils % (auto) 81.7 %
[2021-08-13] MEDS: ACYCLOVIR 400 MG TAB PO SCH ×2 (08:26→20:12)
[2021-08-13] MEDS: carvediloL 6.25 MG TAB PO SCH ×2 (08:26→20:11)
[2021-08-13] MEDS: PANTOprazole 40 MG TAB PO SCH (08:27)
[2021-08-13] MEDS: metroNIDAZOLE 500 MG TAB PO SCH ×3 (08:27→20:11)
[2021-08-13] MEDS ORDERED: POTASSIUM CHLORIDE CRTAB 20 MEQ TABCR PO STA (09:43)
[2021-08-13] MEDS ORDERED: FUROSEMIDE 40 MG/4 ML VIAL IV ONE (09:45)
[2021-08-13] MEDS: ALBUMIN 25% 100 mL 25 GM/100 ML VIAL IV SCH ×4 (10:06→18:01)
[2021-08-13] MEDS ORDERED: VANCOMYCIN TROUGH ONE (13:30)
--- NOTE | 2021-08-13 13:39 | Hospitalist Progress Note ---
Date of Service August 13, 2021 Assessment & Plan (1) Ascites: (2) GANT (nonalcoholic steatohepatitis): (3) Cirrhosis: (4) Fever: Plan: -Patient presenting by referral of outpatient GI provider for evaluation of worsening abdominal distention and fever -History of GANT cirrhosis with ascites, esophageal varices, portal hypertension. EGD 05/2021 showed grade 1 esophageal varices and portal hypertensive gastropathy. -Given fever in the setting of worsening ascites, concern for SBP. -Bilirubin 3.7 (worsening for patient), other LFTs WNL. RUQ US shows nonocclusive thrombus again noted at the portosplenic confluence. This is similar to the prior study. - No CBD dilation -Trend LFTs -GI has already evaluated the patient and recommend an urgent paracentesis for which patient underwent for 4 L. -In the ED, patient is running a low-grade fever but otherwise hemodynamically stable and does not appear septic. -IV ceftriaxone, p.o. Flagyl as per GI -Noted to have positive blood culture with alpha streptococci and further sensitivity pending -IV vancomycin has been added-vancomycin has been discontinued from 08/13/21 -No more fever and no chills Spontaneous bacterial peritonitis Gram stain of the aspirate was negative but white cell count was elevated to 3270 He has been on intravenous ceftriaxone and Flagyl Appreciate GI input and recommendation Missed the recommended dose of albumin on 08/11/2021 but will receive 1 mg/kg of albumin 25% tomorrow to prevent hepatorenal syndrome as per GI recommendation Will give 100 g of albumin today with Lasix x1 dose Will ask for follow-up paracentesis tomorrow as per GI recommendation Bacteremia Due to alpha streptococci-further sensitivities pending Has been started on intravenous vancomycin Blood culture grew strep viridans and is sensitive to current antibiotic We'll discontinue vancomycin Oral antibiotics on discharge (5) Abnormal urinalysis: Plan: -UA suggest possible UTI-doubt any UTI -On IV ceftriaxone as above (6) Thrombocytopenia: Plan: -Chronic due to underlying cirrhosis and history of acute hemolytic anemia -Platelet count 73K, at baseline (7) DM type 2 (diabetes mellitus, type 2): Plan: -Hgb A1c 6.8 09/2020 -Hold metformin and utilize NovoLog per protocol while hospitalized (8) DVT prophylaxis: Plan: -SCDs due to thrombocytopenia Admission and Anticipated Discharge Date Admission Date: August 11, 2021 Subjective 08/12/2021 The patient was seen and examined in medical floor He has been feeling much better and denies any increasing abdominal distention or discomfort and no more fever He has been feeling better since admission 08/13/21 The patient was seen and examined in medical floor He has been stable and denies any increasing abdominal pain, distention, nausea and or vomiting No more fever and/or chills Review of Systems Review of Systems: All systems reviewed and are unremarkable except as noted below Gastrointestinal: Abdominal distention without discomfort and/or pain Physical Exam Physical Exam: Lying in bed comfortably Constitutional: well developed, well nourished and + obese; not ill appearing Eyes: PERRL, conjunctivae normal, anicteric sclerae ENMT: external ear and nose normal, oropharynx normal Neck: trachea midline, no thyromegaly Respiratory: no respiratory distress Auscultation: lungs clear to auscultation bilaterally Cardiovascular: Rate/Rhythm: regular rate and regular rhythm; not tachycardic Heart Sounds: normal S1 and normal S2; no murmur Extremities: no edema Gastrointestinal (Abdomen): Inspection/Auscultation: + abdomen distended (Soft) and normal bowel sounds Percussion/Palpation: + abdomen tender (Minimally tender), abdomen soft and + ascites (Moderate ascites) Musculoskeletal: No acute arthritis involving any joint Neurologic: Alert, awake and oriented x3. No focal sensory or motor deficit appreciated Lymphatic: no cervical or axillary lymphadenopathy Results & Data Results & Data ([facility]) Vital Signs (Past 12 Hours) Vital Signs Temp Pulse Pulse Resp BP Pulse Ox 08/13/21 11:58 36.6 C 65 18 107/65 95 08/13/21 10:03 36.6 C 63 16 107/63 95 08/13/21 07:24 36.7 C 69 16 120/66 97 Laboratory Results Short CBC 08/13/21 Range/Units 05:23 WBC 3.45 L (4.8-10.8) K/uL Hgb 11.2 L (14.0-18.0) g/dL Hct 32.9 L (42-52) % Plt Count 79 L (130-400) K/uL [facility] 08/13/21 05:23 Sodium 137 Potassium 3.7 D Chloride 106 Carbon Dioxide 25 BUN 12 Creatinine 0.84 Glucose 139 H Calcium 8.5 Liver Function 08/13/21 Range/Units 05:23 Total Bilirubin 1.2 H D (0.2-1) mg/dl AST 7 L (15-37) U/L ALT 15 (12-78) Alkaline Phosphatase 75 (45-117) U/L Albumin 2.7 L (3.4-5.0) gm/dl Medications Administered Current Inpatient Medications Acetaminophen (Acetaminophen 325 Mg Tab) 650 mg PO Q4H PRN PRN Reason: pain/fever Stop: 09/10/21 18:11 Acyclovir (Acyclovir 400 Mg Tab) 400 mg PO BID [facility] Stop: 09/10/21 20:59 Last Admin: 08/13/21 08:26 Dose: 400 mg Documented by: Carvedilol (Carvedilol 6.25 Mg Tab) 6.25 mg PO BID [facility] Stop: 09/10/21 20:59 Last Admin: 08/13/21 08:26 Dose: 6.25 mg Documented by: Ceftriaxone Sodium 2,000 mg/ (Dextrose) 70 mls @ 140 mls/hr IV Q24H [facility]; Protocol Stop: 08/21/21 15:29 Last Infusion: 08/12/21 16:59 Dose: Infused Documented by: Albumin Human (Albumin 25% 100 Ml) 25 gm in 100 mls @ 50 mls/hr IV Q2H [facility] Stop: 08/13/21 17:44 Last Admin: 08/13/21 12:10 Dose: 50 mls/hr Documented by: Metronidazole (Metronidazole 500 Mg Tab) 500 mg PO TID [facility]; Protocol Stop: 08/21/21 20:59 Last Admin: 08/13/21 08:27 Dose: 500 mg Documented by: Pantoprazole Sodium (Pantoprazole 40 Mg Tab) 40 mg PO QAM [facility] Stop: 09/11/21 08:59 Last Admin: 08/13/21 08:27 Dose: 40 mg Documented by:
[2021-08-13] MEDS: cefTRIAXone SODIUM 2,000 MG in DEXTROSE 5% 50 ML IV SCH (15:04)
--- NOTE | 2021-08-13 16:47 | Gastroenterology Progress Note ---
Date of Service August 13, 2021 Assessment & Plan (1) Cirrhosis: (2) Portal hypertension: (3) Esophageal varices: (4) Ascites: (5) SBP (spontaneous bacterial peritonitis): Plan: Continue current abx as per the primary team Received 1 g/kg of Albumin today secondary to SBP Diagnostic paracentesis tomorrow Will need SBP prophylaxis in the future Continue current therapy and supportive care [facility] to resume care tomorrow. Admission and Anticipated Discharge Date Admission Date: August 11, 2021 Subjective Feeling better today. He denies any abdominal pain, fevers, chills, nausea, vomiting, diarrhea, hematemesis, melena or hematochezia. He is tolerating PO intake, without difficulty. Review of Systems Constitutional: as per Subjective / HPI Eyes: as per Subjective / HPI Ear, Nose, Mouth, Throat: as per Subjective / HPI Respiratory: as per Subjective / HPI Cardiovascular: as per Subjective / HPI Gastrointestinal: as per Subjective / HPI Musculoskeletal: as per Subjective / HPI Integumentary: as per Subjective / HPI Neurologic: as per Subjective / HPI Psychiatric: as per Subjective / HPI Endocrine: as per Subjective / HPI Hematologic / Lymphatic: as per Subjective / HPI Allergy / Immunological: as per Subjective / HPI Physical Exam Constitutional: + ill appearing (chronic); no acute distress Eyes: + anicteric sclerae ENMT: external ear and nose normal, oropharynx normal Neck: normal visual inspection Respiratory: normal respiratory effort, lungs clear to auscultation Gastrointestinal (Abdomen): Inspection/Auscultation: + abdomen distended Percussion/Palpation: abdomen soft and + ascites; abdomen nontender Psychiatric: A+Ox3, euthymic affect Results & Data Results & Data ([facility]) Vital Signs (Past 12 Hours) Vital Signs Temp Pulse Pulse Resp BP Pulse Ox 08/13/21 14:41 36.5 C 65 16 106/60 98 08/13/21 11:58 36.6 C 65 18 107/65 95 08/13/21 10:03 36.6 C 63 16 107/63 95 08/13/21 07:24 36.7 C 69 16 120/66 97 PG Care Time/CCT Total # of Minutes Spent Total Time Spent with Patient: Total time spent is greater than 50% in coordination of care (as documented) at patient's floor/unit and/or counseling patient: Coding Level of Care Code 73600 Subseq Hosp Care Lv 3 Diagnoses Cirrhosis K74.60 Portal hypertension K76.6 Esophageal varices I85.00 Ascites R18.8 SBP (spontaneous bacterial peritonitis) K65.2
[2021-08-14 06:37] LABS: Hematocrit (blood only) 33.5 % (42-52); Hemoglobin 11.3 g/dL (14.0-18.0); Mean Corpuscular Hemoglobin 29.5 pg (25-34); Mean Corpuscular Hgb Conc 33.7 g/dL (32-36); Mean Corpuscular Volume 87.5 fL (80-100); RDW Coefficient of Variation 14.3 % (11.5-14.5); Red Blood Count 3.83 M/uL (4.7-6.1); White Blood Count 3.16 K/uL (4.8-10.8)
[2021-08-14 06:51] LABS: Platelet Count 93 K/uL (130-400)
[2021-08-14 07:01] LABS: Basophils # (auto) 0.01 K/uL (0-0.2); Basophils % (auto) 0.3 %; Eosinophils # (auto) 0.12 K/uL (0-0.5); Eosinophils % (auto) 3.8 %; Immature Granulocytes # (auto) 0.01 K/uL (0.00-0.02); Immature Granulocytes % (auto) 0.3 %; Lymphocytes # (auto) 0.16 K/uL (1.2-3.4); Lymphocytes % (auto) 5.1 %; Monocytes # (auto) 0.29 K/uL (0.11-0.59); Monocytes % (auto) 9.2 %; Neutrophils # (auto) 2.57 K/uL (1.4-6.5); Neutrophils % (auto) 81.3 %; Toxic Granulation Occasional
[2021-08-14 07:10] LABS: Albumin Level 3.4 gm/dl (3.4-5.0); BUN Creatinine Ratio 12.1 (10-20); Calcium 8.7 mg/dl (8.5-10.1); Creatinine Clr Calc Pharmacy 94.7 ml/min; Est GFR (African American) 101.2 ml/min; Est GFR (Non-African American) 87.3 ml/min; Potassium 3.5 mmol/L (3.5-5.1)
[2021-08-14 07:12] LABS: Albumin Globulin Ratio 1.8 (0.9-2); Bilirubin,Total 1.1 mg/dl (0.2-1); Globulin 1.9 gm/dl (2.5-4.0); Phosphorus 2.5 mg/dl (2.5-4.9); Total Protein 5.3 gm/dl (6.4-8.2)
--- NOTE | 2021-08-14 08:51 | Gastroenterology Progress Note ---
Date of Service August 14, 2021 Assessment & Plan (1) SBP (spontaneous bacterial peritonitis): Plan: 71 year old male with cirrhosis admitted w/ SBP on day 4 of IV ABX - Planned for paracentesis today - Please give albumin 25% 25G before and after - Continue full dose of ABX for SBP - Start SBP prophylaxis w/ cipro 500 mg once daily - MELD labs daily - Low NA diet - Less than 2G tylenol - Consider d/c home after IV ABX course is complete - Recall GI as needed. Thank you for allowing us to participate in the care of this patient. Please call with any acute changes, questions or concerns. Please see addendum below with additional recommendation from my supervising physician. Admission and Anticipated Discharge Date Admission Date: August 14, 2021 Supervising Physician Co-Signing Physician Notes I saw and evaluated the patient. The patient was admitted with SBP and appears to be significantly improved today. With suggest completion of a course of antibiotics as noted above. Please call with any questions or concerns, GI to sign off. Subjective feeling well from gi standpoint denies abd pain no nausea, vomiting no GERD to go for repeat para today Review of Systems Review of Systems: All systems reviewed & are unremarkable except as noted in HPI & below Physical Exam Constitutional: WD/WN, vitals as above Respiratory: normal respiratory effort, lungs clear to auscultation Cardiovascular: RRR, no murmur, no edema Gastrointestinal (Abdomen): + large ascites Skin: no rashes, warm and dry Results & Data ([facility]) Vital Signs (Past 12 Hours) Vital Signs Temp Pulse Resp BP Pulse Ox 08/14/21 07:12 36.6 C 70 16 116/69 97 08/13/21 22:35 36.7 C 68 18 105/60 96 Laboratory Results 08/14/21 08/14/21 08/13/21 Range/Units 06:12 06:12 13:12 WBC 3.16 L (4.8-10.8) K/uL RBC 3.83 L (4.7-6.1) M/uL Hgb 11.3 L (14.0-18.0) g/dL Hct 33.5 L (42-52) % MCV 87.5 (80-100) fL MCH 29.5 (25-34) pg MCHC 33.7 (32-36) g/dL RDW Std Deviation 46.0 (36.4-46.3) fL RDW Coeff of [place] 14.3 (11.5-14.5) % Plt Count 93 L (130-400) K/uL MPV 9.0 (7.4-10.4) fL Immature Gran % (Auto) 0.3 % Neut % (Auto) 81.3 % Lymph % (Auto) 5.1 % [place] % (Auto) 9.2 % Eos % (Auto) 3.8 % Baso % (Auto) 0.3 % Neut # (Auto) 2.57 (1.4-6.5) K/uL Lymph # (Auto) 0.16 L (1.2-3.4) K/uL [place] # (Auto) 0.29 (0.11-0.59) K/uL Eos # (Auto) 0.12 (0-0.5) K/uL Baso # (Auto) 0.01 (0-0.2) K/uL Immature Gran # (Auto) 0.01 (0.00-0.02) K/uL Toxic Granulation Occasional Sodium 139 (136-145) mmol/L Potassium 3.5 (3.5-5.1) mmol/L Chloride 106 (98-107) mmol/L Carbon Dioxide 25 (21-32) mmol/L Anion Gap 8.0 (3-11) BUN 10 (7-18) mg/dl Creatinine 0.83 (0.6-1.4) mg/dl Est Cr Clr Drug Dosing 94.7 ml/min Est GFR ( Amer) 101.2 ml/min Est GFR (Non-Af Amer) 87.3 ml/min BUN/Creatinine Ratio 12.1 (10-20) Glucose 139 H (70-99) mg/dl Calcium 8.7 (8.5-10.1) mg/dl Phosphorus 2.5 (2.5-4.9) mg/dl Magnesium 2.0 (1.8-2.4) mg/dl Total Bilirubin 1.1 H (0.2-1) mg/dl AST 7 L (15-37) U/L ALT 13 (12-78) Alkaline Phosphatase 63 (45-117) U/L Total Protein 5.3 L (6.4-8.2) gm/dl Albumin 3.4 (3.4-5.0) gm/dl Globulin 1.9 L (2.5-4.0) gm/dl Albumin/Globulin Ratio 1.8 (0.9-2) Vancomycin Trough 10.9 (See Comment) mcg/ml
[2021-08-14] MEDS: metroNIDAZOLE 500 MG TAB PO SCH ×3 (09:07→20:33)
[2021-08-14] MEDS: ACYCLOVIR 400 MG TAB PO SCH ×2 (09:08→20:33)
[2021-08-14] MEDS: carvediloL 6.25 MG TAB PO SCH ×2 (09:08→20:33)
[2021-08-14] MEDS: PANTOprazole 40 MG TAB PO SCH (09:08)
[2021-08-14] MEDS ORDERED: ALBUMIN 25% 12.5 GM/50 ML VIAL IV ONE ×2 (09:39→17:40)
[2021-08-14] MEDS ORDERED: ALBUMIN 25% 100 mL 25 GM/100 ML VIAL IV SCH ×2 (10:00→17:00)
[2021-08-14] MEDS ORDERED: CARBOHYDRATES FOR HYPOGLYCEMIA PO PRN (12:06)
[2021-08-14] MEDS ORDERED: GLUCOSE 10 TABS/TUBE PO PRN (12:06)
[2021-08-14] MEDS ORDERED: GLUCAGON FOR INJ 1 MG VIAL SQ PRN (12:06)
[2021-08-14] MEDS ORDERED: GLUCOSE 40% GEL 15 GM TUBE PO PRN (12:06)
[2021-08-14] MEDS ORDERED: DEXTROSE 50% 50 ML SYRINGE IV PRN (12:06)
--- NOTE | 2021-08-14 12:12 | Ultrasound Report ---
PARACENTESIS UNDER ULTRASOUND GUIDANCE CLINICAL HISTORY: Abdominal ascites. Spontaneous bacterial peritonitis. COMPARISON STUDY: Abdominal CT dated 08/11/2021 PROCEDURE: The risks, benefits, and alternatives to the procedure were discussed with the patient who voiced understanding. Written informed consent was obtained. Following real-time ultrasound localiza tion of a suitable pocket of fluid in the left lower quadrant, the abdomen was prepped and draped in the usual sterile fashion. The skin and soft tissues were anesthetized with 1% lidocaine. The sheathe d paracentesis needle was inserted and approximately 5 liters of dark ascitic fluid was removed by va cuum suction. The procedure was well tolerated and without immediate complication. The patient [facility] in satisfactory condition. IMPRESSION: Successful ultrasound-guided paracentesis with removal of approximately 5 liters of ascit ic fluid. ACT 112: Negative or not required by law. Electronically signed by: Brenden Martínez M.D. 08/14/2021 12:10 PM
--- NOTE | 2021-08-14 13:45 | Hospitalist Progress Note ---
Date of Service August 14, 2021 Assessment & Plan (1) Ascites: (2) GANT (nonalcoholic steatohepatitis): (3) SBP (spontaneous bacterial peritonitis): (4) Cirrhosis: (5) Fever: Plan: -Patient presenting by referral of outpatient GI provider for evaluation of wors ening abdominal distention and fever -History of GANT cirrhosis with ascites, esophageal varices, portal hypertension. EGD 05/2021 showed grade 1 esophageal varices and portal hypertensive gastropathy. -Presenting bilirubin 3.7 --> improved to 1.1 today. Other LFTs WNL -RUQ US shows nonocclusive thrombus again noted at the portosplenic confluence. This is similar to the prior study. - No CBD dilation -Trend LFTs -S/p paracentesis on 08/11 for 4 L, s/p paracentesis on 08/14 for 5 L. Received pre and post albumin per GI recommendations. -Peritoneal fluid cultures from 08/11 no growth -Patient remains on IV ceftriaxone and p.o. Flagyl -Diuretics on hold per GI, will resume tomorrow (6) Streptococcal bacteremia: Plan: -2/2 blood cultures from 08/11 growing strep viridans, sensitive to ceftriaxone -Patient remains on IV ceftriaxone and p.o. Flagyl (day 4). Received 1 dose of IV vancomycin on 08/13 -Patient was febrile on day 1 of admission, no further fever since -No signs of vegetation on echo -ID consult, input appreciated (7) Abnormal urinalysis: Plan: -Doubt UTI -On IV ceftriaxone as above (8) Thrombocytopenia: Plan: -Chronic due to underlying cirrhosis and history of acute hemolytic anemia -Platelet count 93K, at baseline (9) DM type 2 (diabetes mellitus, type 2): Plan: -Hgb A1c 6.8 09/2020 -Hold metformin and utilize NovoLog per protocol while hospitalized (10) DVT prophylaxis: Plan: -SCDs due to thrombocytopenia Admission and Anticipated Discharge Date Admission Date: August 14, 2021 Supervising Physician Co-Signing Physician Notes Attending addendum The patient was seen and examined in medical floor Status post paracentesis of 5 L and has been feeling much better No fever and no chills On examination No apparent distress at rest Hemodynamically stable Chest-clear Heart-S1-S2, regular Abdomen-soft, bowel sounds present, nontender Extremities -no edema His labs, imaging studies reviewed Has HBP with staph bacteremia ID and GI recommendation appreciated Agree with assessment and plan as outlined above by Lisa Gilbert Subjective Patient seen examined. Follow-up for strep bacteremia and SBP. Patient sitting up in the chair, reports he feels much improved from admission. Remains afebrile. No abdominal pain, nausea, vomiting. Denies chest pain or shortness of breath. Review of Systems Review of Systems: ROS per HPI, all other systems reviewed and negative Physical Exam Constitutional: WD/WN, vitals as above no acute distress Respiratory: normal respiratory effort, lungs clear to auscultation Cardiovascular: Rate/Rhythm: regular rate and regular rhythm Vessels: normal peripheral pulses Extremities: no edema Gastrointestinal (Abdomen): Inspection/Auscultation: + abdomen distended (Semifirm) Percussion/Palpation: + ascites; abdomen nontender Skin: no rashes, warm and dry Neurologic: no focal motor deficits Psychiatric: A+Ox3, euthymic affect Results & Data Results & Data ([facility]) Vital Signs (Past 12 Hours) Vital Signs Temp Pulse Resp BP Pulse Ox 08/14/21 12:12 36.6 C 64 16 121/68 98 08/14/21 07:12 36.6 C 70 16 116/69 97 Laboratory Results Short CBC 08/14/21 Range/Units 06:12 WBC 3.16 L (4.8-10.8) K/uL Hgb 11.3 L (14.0-18.0) g/dL Hct 33.5 L (42-52) % Plt Count 93 L (130-400) K/uL BMP 08/14/21 06:12 Sodium 139 Potassium 3.5 Chloride 106 Carbon Dioxide 25 BUN 10 Creatinine 0.83 Glucose 139 H Calcium 8.7 Liver Function 08/14/21 Range/Units 06:12 Total Bilirubin 1.1 H (0.2-1) mg/dl AST 7 L (15-37) U/L ALT 13 (12-78) Alkaline Phosphatase 63 (45-117) U/L Albumin 3.4 (3.4-5.0) gm/dl
[2021-08-14 14:21] LABS: Appearance Peritoneal Fluid BLOODY; Basophils, Fluid 0 %; Color Peritoneal Fluid RED; Eosinophils, Fluid 0 %; Lymphocytes, Fluid 39 %; Mono,Macrophage,Mesothelial 22 %; Neutrophils, Fluid 39 %; RBC Peritoneal Fluid (A) 24000 /uL; WBC Peritoneal Fluid (A) 668 /ul (0-300)
[2021-08-14] MEDS: cefTRIAXone SODIUM 2,000 MG in DEXTROSE 5% 50 ML IV SCH (15:05)
[2021-08-14] MEDS: INSULIN ASPART PER UNIT SC SCH ×2 (17:45→20:29)
[2021-08-15 06:56] LABS: Hematocrit (blood only) 35.7 % (42-52); Mean Corpuscular Hemoglobin 29.4 pg (25-34); Mean Corpuscular Hgb Conc 33.6 g/dL (32-36); Mean Corpuscular Volume 87.5 fL (80-100); Mean Platelet Volume 9.2 fL (7.4-10.4); Platelet Count 109 K/uL (130-400); RDW Coefficient of Variation 14.3 % (11.5-14.5); RDW Standard Deviation 45.7 fL (36.4-46.3); Red Blood Count 4.08 M/uL (4.7-6.1); White Blood Count 4.09 K/uL (4.8-10.8)
[2021-08-15] MEDS ORDERED: LORazepam 0.25 MG/0.5 ML VIAL IV PRN (07:21)
[2021-08-15 07:30] LABS: Albumin Level 3.5 gm/dl (3.4-5.0); BUN Creatinine Ratio 14.5 (10-20); Calcium 8.7 mg/dl (8.5-10.1); Creatinine Clr Calc Pharmacy 89.3 ml/min; Est GFR (African American) 98.8 ml/min; Est GFR (Non-African American) 85.2 ml/min; Potassium 3.5 mmol/L (3.5-5.1)
[2021-08-15 07:33] LABS: Albumin Globulin Ratio 2.2 (0.9-2); Globulin 1.6 gm/dl (2.5-4.0); Total Protein 5.1 gm/dl (6.4-8.2)
[2021-08-15] MEDS: metroNIDAZOLE 500 MG TAB PO SCH (09:10)
[2021-08-15] MEDS: ACYCLOVIR 400 MG TAB PO SCH (09:11)
[2021-08-15] MEDS: PANTOprazole 40 MG TAB PO SCH (09:11)
[2021-08-15] MEDS: carvediloL 6.25 MG TAB PO SCH (09:11)
[2021-08-15] MEDS: INSULIN ASPART PER UNIT SC SCH ×2 (09:15→12:27)
[2021-08-15] MEDS: cefTRIAXone SODIUM 2,000 MG in DEXTROSE 5% 50 ML IV SCH (11:22)
--- NOTE | 2021-08-15 17:38 | Discharge Summary ---
Date of Service August 15, 2021 Admission HPI Per Admitting Provider 71-year-old male with PMH GANT cirrhosis with portal hypertension, esophageal varices, ascites; history of autoimmune hemolytic anemia, and other problems listed below who presents to the ED by referral of outpatient GI provider for evaluation of worsening abdominal distention and fever. Patient reports that about 4 days ago, he noted increasing abdominal distention. He also describes early satiety. He has been running intermittent fevers of as high as 101.6. He reports generalized abdominal pain at times. He reports diarrhea which seems to be a chronic issue. Noted over the past few days that his urine has been darker in color. He denies dysuria. No chest pain or shortness of breath. Reports some worsening lower extremity edema. Denies lightheadedness, dizziness, diaphoresis, syncopal events. In the ED, labs show bilirubin 3.7 (patient typically is between 1.0-1.5). UA suggestive of possible UTI. GI has already evaluated the patient and recommended urgent paracentesis which patient has had completed for 4 L. RUQ US shows Nonocclusive thrombus again noted at the portosplenic confluence. This is similar to the prior study. Patient received albumin post paracentesis. He also received IV ceftriaxone and p.o. metronidazole. Admission Exam Per Admitting Provider Constitutional: WD/WN, vitals as above Eyes: PERRL, conjunctivae normal, anicteric sclerae ENMT: external ear and nose normal, oropharynx normal Respiratory: normal respiratory effort, lungs clear to auscultation Cardiovascular: Rate/Rhythm: regular rate and regular rhythm Vessels: normal peripheral pulses Extremities: + edema (Trace edema BLE) Gastrointestinal (Abdomen): Inspection/Auscultation: + abdomen distended (Semifirm) and normal bowel sounds Percussion/Palpation: + ascites; abdomen nontender and no hepatosplenomegaly Musculoskeletal: no cyanosis or clubbing, extremities motor strength 5/5 Skin: no rashes, warm and dry Neurologic: PERRL, EOMI, accommodation nl, no face palsy, no dysarthria Psychiatric: A+Ox3, euthymic affect Principal Diagnosis SBP Streptococcal bacteremia Discharge Exam Constitutional WD/WN, vitals as above Respiratory normal respiratory effort, lungs clear to auscultation Cardiovascular Rate/Rhythm: regular rate and regular rhythm Vessels: normal peripheral pulses Extremities: no edema Gastrointestinal (Abdomen) Inspection/Auscultation: + abdomen distended (Improved from yesterday) and normal bowel sounds Percussion/Palpation: abdomen soft and + ascites; abdomen nontender Skin no rashes, warm and dry Neurologic no focal motor deficits Psychiatric A+Ox3, euthymic affect Discharge Data Allergies Allergy/AdvReac Type Severity Reaction Status Date / Time No Known Allergies Allergy Verified 08/16/21 07:07 Consultations GI Infectious disease Procedures Performed 08/11/2021 paracentesis for 4 L 08/14/2021 paracentesis for 5 L Ordered Studies 08/11/2021 KUB XR IMPRESSION: 1. No evidence for bowel obstruction. 2. Hazy appearance to the abdomen with centralization of the small bowel likely representing ascites. 08/11/2021 CXR IMPRESSION: Decreased inspiration with bibasilar atelectasis, left greater than right. 08/11/2021 portal vein US IMPRESSION: No significant change in the partial thrombus at the portosplenic confluence. 08/11/2021 CT ABD/pelvis IMPRESSION: 1. Cirrhotic liver disease with stigmata of portal venous hypertension including splenomegaly, moderate abdominopelvic ascites and varices. 2. Nonspecific retroperitoneal and periportal adenopathy. 3. Trace pleural effusions with suggested pulmonary edema. 4. No bowel obstruction. 5. Wall thickening of the colon, most pronounced within the sigmoid and rectum may be secondary to portal colopathy versus a nonspecific proctocolitis. 6. Colonic diverticulosis. 7. Additional findings as above. Hospital Course (1) Ascites: (2) GANT (nonalcoholic steatohepatitis): (3) SBP (spontaneous bacterial peritonitis): (4) Cirrhosis: (5) Fever: -Patient presenting by referral of outpatient GI provider for evaluation of worsening abdominal distention and fever -History of GANT cirrhosis with ascites, esophageal varices, portal hypertension. EGD 05/2021 showed grade 1 esophageal varices and portal hypertensive gastropathy. -Presenting bilirubin 3.7 --> improved to 1.0. Other LFTs WNL -RUQ US shows nonocclusive thrombus again noted at the portosplenic confluence. This is similar to the prior study. - No CBD dilation -S/p paracentesis on 08/11 for 4 L, s/p paracentesis on 08/14 for 5 L. Received pre and post albumin per GI recommendations. -Peritoneal fluid cultures from 08/11 growing alpha strep, not Enterococcus -Initially treated with IV ceftriaxone and p.o. Flagyl --> transition to ceftriaxone 1 g IV daily as discussed below -Diuretics initially held, resume on discharge (6) Streptococcal bacteremia: -2/2 blood cultures from 08/11 growing strep viridans, sensitive to ceftriaxone -Initially treated with IV ceftriaxone and p.o. Flagyl, also received 1 dose of IV vancomycin on 08/13 -Patient was febrile on day 1 of admission, no further fever since -No signs of vegetation on echo -ID consulted, recommending ceftriaxone 1 g IV daily through 08/25. Ultrasound- guided IV placed. Patient will receive daily antibiotic at [facility] at [facility]. -Repeat blood cultures once IV antibiotics are complete (7) Abnormal urinalysis: -Doubt UTI -On IV ceftriaxone as above (8) Thrombocytopenia: -Chronic due to underlying cirrhosis and history of acute hemolytic anemia -Platelet count 109K, at baseline (9) DM type 2 (diabetes mellitus, type 2): -Hgb A1c 6.8 09/2020 -Receive NovoLog per protocol while hospitalized, resume Metformin at discharge Total Time Total Time Spent Total Time Spent (In Minutes): 35 Discharge Plan Discharge Items Patient Disposition: Home - Self-Care Reason For Visit: Abdominal pain, fever Discharge Diagnosis: Spontaneous bacterial peritonitis (infection in the fluid in your abdomen) Bacteremia (infection in your blood) Activity: Resume your previous activity Non-emergency contact: Primary Care Provider and Senior Business Development Manager Call non-emergency contact if: you have any medication questions, your symptoms worsen, your pain is not controlled and you have a fever Follow-up/Referrals: Rhina Ibrahim MD [Primary Care Provider] - 08/21/21 10:20 am Ruiz Bell MD [Hospitalist] - ([facility] 08/16/21 at 0700 [facility] 08/17/21 at 0730 [facility] 08/18/21 at 1230 for ABX. ABX will be done 08/25/21. [facility] will schedule follow up appointments. Office will reach out to you regarding follow-up appointment) Diet: Carb Consistent or DM2 Addtl Attending Provider Instructions: You presented to the hospital with abdominal pain and fever. You were diagnosed with an infection in the fluid in your abdomen (spontaneous bacterial peritonitis) and also an infection in your blood (bacteremia). You had fluid removed from your abdomen twice during your admission. To treat the bacteria in your blood, you will need to be on IV antibiotics until 08/25. You will need to come to the medical treatment unit (MTU) at [facility] daily until 08/25. Your first appointment is tomorrow at 7:00AM To help prevent further infection in your abdomen, you will start taking ciprofloxacin 500 mg daily. Please keep scheduled follow-up with PCP You also need to follow-up with your GI doctor, their office will reach out to you regarding appointment. It was a pleasure taking care of you. If you have any further questions or need to reach a provider with the [facility] Hospitalist Team at [facility], call the hospital at [phone]. TREVIN Waters Pending Studies at Discharge: No Stand-Alone Forms: My [facility], Smoking Cessation Medications and DC Order Prescriptions: New ceftriaxone 1 gram recon soln 1 g IV DAILY Qty: 10 RF: 0 ciprofloxacin HCl [Cipro] 500 mg tablet 500 mg PO DAILY Qty: 14 RF: 0 Continued furosemide [Lasix] 40 mg Tablet 40 mg PO QAM RF: 0 acyclovir 400 mg tablet 400 mg PO BID RF: 0 acetaminophen [Tylenol Extra Strength] 500 mg Tablet 1,000 mg PO Q4H PRN (Reason: Pain) RF: 0 metformin 500 mg tablet extended release 24 hr 1,000 mg PO QAM RF: 0 spironolactone 50 mg tablet 150 mg PO QAM RF: 0 carvedilol 6.25 mg tablet 6.25 mg PO BID RF: 0 omeprazole 20 mg capsule,delayed release(DR/EC) 20 mg PO QAM RF: 0 Discontinued betamethasone dipropionate 0.05 % Cream 1 applic TOPICAL BID PRN (Reason: Rash) RF: 0 Discharge Orders: Discharge Order (Routine); Ordered 08/15/21 Ordered By: Lisa Clark Admission Data Admit Date/Time: 08/14/21 08:21 Attending Provider: Lucy Gilbert Admit Provider: Lucy Gilbert Primary Care Provider: Rhina Ibrahim Other Providers: Lucy Gilbert ; Ruiz Bell ; Alonzo Nicole ; Kalpana Marsh ; Aaron Singh I. ; Albert English II ; Arti Thurston ; Kristofer Pagan ; Delmar Montalvo Other Interventions: Discharge Summary Assessment (RN) Last Done: 08/15/21 11:27 Supervising Physician Co-Signing Physician Notes Attending addendum: The patient was seen and examined in medical floor He is status post second time paracentesis secondary to SBP He has been feeling much better and will be discharged home today On examination No apparent distress at rest Hemodynamically stable Chestclear to auscultate bilaterally HeartS1, S2 no murmur Abdomensoft, nontender and bowel sounds present Extremitiesnegative for edema His labs and imaging studies reviewed Has SBP status post paracentesis x2 History of viridans bacteremia has been on IV antibiotic Agree with assessment and plan as outlined above by Lisa Gilbert
== END 2021-08-15 12:53 | disposition home or self-care (01) | DRG 372 ==
LOC: 3E 09:23 → ED 09:23 → 3E 17:54
DX: K31.89 Other diseases of stomach and duodenum; R78.81 Bacteremia; K76.6 Portal hypertension; D69.59 Other secondary thrombocytopenia; R18.8 Other ascites; Z86.16 Personal history of COVID-19; B95.5 Unspecified streptococcus as the cause of diseases classified elsewhere; R82.90 Unspecified abnormal findings in urine; K74.69 Other cirrhosis of liver; I85.10 Secondary esophageal varices without bleeding; Z86.711 Personal history of pulmonary embolism; K75.81 Nonalcoholic steatohepatitis (NASH); E11.9 Type 2 diabetes mellitus without complications; Z79.84 Long term (current) use of oral hypoglycemic drugs; K65.2 Spontaneous bacterial peritonitis